=== PATIENT | male | born 1950 | race Caucasian/White ===

== ENCOUNTER → 2016-04-30 | Outpatient (CLI) | payer BC ==
--- NOTE | 2016-05-01 06:49 | XR ---
EXAMINATION TYPE: XR KUB DATE OF EXAM: 04/30/2016 4:12 PM CLINICAL HISTORY: Right-sided kidney stone progress study. TECHNIQUE: 2 supine KUB images of the abdomen are obtained. COMPARISON: Abdominal x-ray and CT abdomen and pelvis from April 09, 2016 FINDINGS: The roughly 5 mm mid ureter calculus is less well seen on plain films versus CT images. It is felt to have passed into the pelvis or bladder on today's study at level of the lower sacrum in th e midline. There is left-sided pelvic phlebolith demonstrated. Smaller renal calculi on CT are less w ell seen on plain films. Prominent fecal material overlies right kidney. Visualized lung bases are clear. There is overall nonobstructive bowel gas pattern. Visualized osseou s structures are intact. IMPRESSION: Suboptimal visualization of right mid ureter 5 mm calculus. Suspect interval passage to b ladder.
== END | disposition home or self-care (01) ==
LOC: RADXRMAIN 15:40
PROVIDERS: ATTEND Urology
DX: N20.1 Calculus of ureter (principal)
CPT/HCPCS: 74000

== ENCOUNTER 2017-11-13 10:17 | Emergency (ER) | payer BC, MEDICARE ==
[2017-11-13 10:49] LABS: Glucose,Whole Blood 150 mg/dL (75-99)
[2017-11-13] MEDS ORDERED: KETOROLAC 30 MG/ML 1 ML VIAL IVP STA (11:06)
[2017-11-13] MEDS ORDERED: ONDANSETRON 4 MG/2 ML VIAL IVP STA (11:06)
[2017-11-13] MEDS ORDERED: SODIUM CHLORIDE 0.9% 1,000 ML IV STA (11:06)
[2017-11-13] MEDS ORDERED: MORPHINE SULFATE 2 MG/ML SYRINGE IVP STA (11:06)
--- NOTE | 2017-11-13 11:19 | ED ---
General Adult HPI - General Chief complaint: Abdominal Pain Stated complaint: abdominal pain sent by med-ex Time Seen by Provider: 11/13/17 10:50 Source: patient, RN notes reviewed Mode of arrival: ambulatory Limitations: no limitations - History of Present Illness Initial comments: 67-year-old male presents to the emergency department for a chief complaint of possible kidney stone 1 week. Patient states he has had 5 kidney stones in the past. Patient states the pain is in his left back radiating around to his left abdomen. Patient denies pain radiating down to his groin. Patient admits he is somewhat nauseous but denies any vomiting. Patient states he has been tolerating oral intake until about 12 hours ago since he has not been hungry. No fevers chills at home. Patient has no other complaints at this time including shortness of breath, chest pain, abdominal pain, nausea or vomiting, headache, or visual changes. - Related Data Home Medications Medication Instructions Recorded Confirmed metFORMIN HCL [Metformin HCl ER] 500 mg PO BID 05/12/14 11/13/17 Cholecalciferol [Vitamin D3] 2,000 unit PO DAILY 04/09/16 11/13/17 Cinnamon Bark [Cinnamon] 500 mg PO BID 04/09/16 11/13/17 Fenofibrate Nanocrystallized 48 mg PO DAILY 04/09/16 11/13/17 [Fenofibrate] Garlic 1 tab PO BID 04/09/16 11/13/17 Glucosam/Micah-Msm1/C/Job/Bosw 1 tab PO BID 04/09/16 11/13/17 [Glucosamine-Chondroitin Tablet] Inulin/Chromium Picolinate [Fiber 1 tab PO BID 04/09/16 11/13/17 Gummies Chew] Levothyroxine Sodium [Synthroid] 75 mcg PO DAILY 04/09/16 11/13/17 Multivitamins, Thera [Multivitamin] 1 tab PO DAILY 04/09/16 11/13/17 Niacin 500 mg PO BID 04/09/16 11/13/17 Cranberry Fruit Extract [Cranberry] 200 mg PO DAILY 11/13/17 11/13/17 Cyanocobalamin (Vitamin B-12) 1,000 mcg PO DAILY 11/13/17 11/13/17 [Vitamin B-12] Latanoprost Ophth [Xalatan 0.005%] 1 drop BOTH EYES HS 11/13/17 11/13/17 Netarsudil Mesylate [Rhopressa] 1 drop BOTH EYES QAM 11/13/17 11/13/17 Previous Rx's Medication Instructions Recorded HYDROcodone/APAP 5-325MG [[place] 1 tab PO Q6HR PRN #10 tab 11/13/17 5-325] Ibuprofen [Motrin] 600 mg PO Q8HR PRN #20 tab 11/13/17 Ondansetron [Zofran ODT] 4 mg PO Q8HR #15 tab 11/13/17 Tamsulosin [Flomax] 0.4 mg PO DAILY #20 cap 11/13/17 Allergies Allergy/AdvReac Type Severity Reaction Status Date / Time tetracycline Allergy Swelling Verified 11/13/17 11:18 Review of Systems ROS Statement: Those systems with pertinent positive or pertinent negative responses have been documented in the HPI. ROS Other: All systems not noted in ROS Statement are negative. Past Medical History Past Medical History: Diabetes Mellitus, GERD/Reflux Additional Past Medical History / Comment(s): kidney stones History of Any Multi-Drug Resistant Organisms: None Reported Additional Past Surgical History / Comment(s): PILONIDAL CYSTECTOMY. GANGLION CYST REMOEVED LT WRIST Past Anesthesia/Blood Transfusion Reactions: Motion Sickness, Postoperative Nausea & Vomiting (PONV) Past Psychological History: No Psychological Hx Reported Smoking Status: Never smoker Past Alcohol Use History: None Reported, Rare Past Drug Use History: None Reported - Past Family History Father Family Medical History: Cancer Mother Family Medical History: Cancer General Exam Limitations: no limitations General appearance: alert, in no apparent distress Head exam: Present: atraumatic, normocephalic, normal inspection Eye exam: Present: normal appearance. Absent: scleral icterus, conjunctival injection ENT exam: Present: normal exam, mucous membranes moist Neck exam: Present: normal inspection, full ROM. Absent: tenderness, meningismus, lymphadenopathy Respiratory exam: Present: normal lung sounds bilaterally. Absent: respiratory distress, wheezes, rales, rhonchi, stridor Cardiovascular Exam: Present: regular rate, normal rhythm, normal heart sounds. Absent: systolic murmur, diastolic murmur, rubs, gallop, clicks GI/Abdominal exam: Present: soft, tenderness (mild LUQ and LLQ tenderness), normal bowel sounds. Absent: distended, guarding, rebound, rigid Back exam: Present: CVA tenderness (L) (mild CVA tenderness) Course Vital Signs 11/13/17 11/13/17 10:40 12:22 Temperature 98.3 F Pulse Rate 54 L 53 L Respiratory 16 18 Rate Blood Pressure 162/77 171/75 O2 Sat by Pulse 100 100 Oximetry Medical Decision Making - Medical Decision Making 67-year-old male to the emergency department for a chief complaint of left flank pain times one week. Patient has history of kidney stones and has had 5 in the past. On exam patient has left CVA tenderness with minimal left upper and lower quadrant tenderness. Bilateral nephrolithiasis with moderate left hydronephrosis and hydroureter to the level of upper pelvis secondary to obstructing 4.7 mm ureteral calculus. Patient could not urinatein Urinalysis from [employer] showed trace leukocytes , neg nitrite, moderate to large blood. No fevers/chills. Patient feeling much better at DC. Patient will be discharged home with pain medication Flomax and Zofran. He is to follow-up with urology in 1-2 days. - Lab Data Result diagrams: 11/13/17 11:34 11/13/17 11:34 Lab Results 11/13/17 11/13/17 11/13/17 Range/Units 10:47 11:34 11:34 WBC 11.4 H (3.8-10.6) k/uL RBC 4.80 (4.30-5.90) m/uL Hgb 14.1 (13.0-17.5) gm/dL Hct 42.8 (39.0-53.0) % MCV 89.1 (80.0-100.0) fL MCH 29.4 (25.0-35.0) pg MCHC 33.0 (31.0-37.0) g/dL RDW 13.3 (11.5-15.5) % Plt Count 195 (150-450) k/uL Neutrophils % 85 % Lymphocytes % 7 % Monocytes % 5 % Eosinophils % 1 % Basophils % 0 % Neutrophils # 9.7 H (1.3-7.7) k/uL Lymphocytes # 0.8 L (1.0-4.8) k/uL Monocytes # 0.6 (0-1.0) k/uL Eosinophils # 0.1 (0-0.7) k/uL Basophils # 0.0 (0-0.2) k/uL Sodium 141 (137-145) mmol/L Potassium 5.0 (3.5-5.1) mmol/L Chloride 106 (98-107) mmol/L Carbon Dioxide 23 (22-30) mmol/L Anion Gap 12 mmol/L BUN 27 H (9-20) mg/dL Creatinine 1.43 H (0.66-1.25) mg/dL Est GFR (CKD-EPI)AfAm 59 (>60 ml/min/1.73 sqM) Est GFR (CKD-EPI)NonAf 51 (>60 ml/min/1.73 sqM) Glucose 149 H (74-99) mg/dL POC Glucose (mg/dL) 150 H (75-99) mg/dL POC Glu Eeg Technician ID Elvis Monsivais Calcium 10.3 H (8.4-10.2) mg/dL Total Bilirubin 0.4 (0.2-1.3) mg/dL AST 20 (17-59) U/L ALT 29 (21-72) U/L Alkaline Phosphatase 38 (38-126) U/L Total Protein 7.4 (6.3-8.2) g/dL Albumin 4.7 (3.5-5.0) g/dL Amylase 36 (30-110) U/L Lipase 63 (23-300) U/L Disposition Clinical Impression: Ureterolithiasis Disposition: HOME SELF-CARE Condition: Good Instructions: Kidney Stones (ED), Renal Colic (ED) Additional Instructions: Please take Motrin for pain. If pain is severe take [place]. Please take Flomax daily and take Zofran if nauseous. Follow-up with urology in 1-2 days. Return to the emergency department if you have any worsening symptoms. Prescriptions: HYDROcodone/APAP 5-325MG [[place] 5-325] 1 tab PO Q6HR PRN #10 tab PRN Reason: Pain Ibuprofen [Motrin] 600 mg PO Q8HR PRN #20 tab PRN Reason: Pain Ondansetron [Zofran ODT] 4 mg PO Q8HR #15 tab Tamsulosin [Flomax] 0.4 mg PO DAILY #20 cap Is patient prescribed a controlled substance at d/c from ED?: No Referrals: Hunter Ng MD [Primary Care Provider] - 1-2 days Ladarius Camarena MD [STAFF PHYSICIAN] - 1-2 days Time of Disposition: 13:01
--- NOTE | 2017-11-13 11:46 | XR ---
EXAMINATION TYPE: XR KUB DATE OF EXAM: 11/13/2017 COMPARISON: 04/30/2016 INDICATION: Abdomen pain left flank pain hematuria TECHNIQUE: Single view abdomen upright view FINDINGS: There is a normal bowel gas pattern. Fecal debris is in the ascending colon. Psoas margins are normal. No organomegaly is present. No renal stones are identified. No distal ureteral stones are evident. IMPRESSION: 1. Unremarkable Abdomen
[2017-11-13 11:51] LABS: Basophils % (A) 0 %; Eosinophils # (A) 0.1 k/uL (0-0.7); Eosinophils % (A) 1 %; HCT 42.8 % (39.0-53.0); HGB 14.1 gm/dL (13.0-17.5); Lymphocytes # (A) 0.8 k/uL (1.0-4.8); Lymphocytes % (A) 7 %; MCH 29.4 pg (25.0-35.0); MCV 89.1 fL (80.0-100.0); Mean Platelet Volume 6.9; Monocytes # (A) 0.6 k/uL (0-1.0); Monocytes % (A) 5 %; Neutrophils # (A) 9.7 k/uL (1.3-7.7); Neutrophils % (A) 85 %; Platelet Count 195 k/uL (150-450); RDW 13.3 % (11.5-15.5); WBC 11.4 k/uL (3.8-10.6)
[2017-11-13 12:02] LABS: Albumin 4.7 g/dL (3.5-5.0); Calcium 10.3 mg/dL (8.4-10.2); Total Bilirubin 0.4 mg/dL (0.2-1.3); Total Protein 7.4 g/dL (6.3-8.2)
--- NOTE | 2017-11-13 12:42 | CT ---
EXAMINATION TYPE: CT abdomen pelvis wo con DATE OF EXAM: 11/13/2017 COMPARISON: 04/09/2016 HISTORY: Left flank pain. History of renal stones. Hematuria. CT DLP: 720 mGycm Automated exposure control for dose reduction was used. TECHNIQUE: Helical acquisition of images was performed from the lung bases through the pelvis. FINDINGS: LUNG BASES: No significant abnormality is appreciated. LIVER/GB: No significant abnormality is appreciated. PANCREAS: No significant abnormality is seen. SPLEEN: No significant abnormality is seen. ADRENALS: No significant abnormality is seen. KIDNEYS: There are least 5 punctate calcifications overlying the calyces of both kidneys. There is mo derate left hydronephrosis and hydroureter to the level of the upper pelvis. A nonobstructing 4.7 mm calcification is noted within the ureter. Indeterminant upper pole subcentimeter right renal lesion s table. ADENOPATHY: None visualized. OSSEOUS STRUCTURES: No significant abnormality is seen. Disc bulging L4-L5 noted. BOWEL: Bowel gas pattern nonspecific. No free fluid or free air. Diverticulosis of the colon. OTHER: Aorta of normal caliber with mild atherosclerotic changes. Prostate gland is mildly enlarged. There is variant anatomy of the celiac plexus with separate origins of the splenic artery and hepatic artery IMPRESSION: 1. Bilateral nephrolithiasis with moderate left hydronephrosis and hydroureter to level the upper pel vis secondary to obstructing 4.7 mm ureteral calculus.
[2017-11-13 13:12] VITALS: BP 169/79; PULSE 54; RESP 14; TEMP 98.4
[2017-11-13 13:42] LABS: Appearance,Urine Clear (Clear); Bilirubin,Urine Negative (Negative); Blood,Urine Large (Negative); Color,Urine Yellow; Glucose,Urine (UA) Negative (Negative); Ketones,Urine Negative (Negative); Leukocyte Esterase,Urine Negative (Negative); Mucus,Urine Rare /hpf; Nitrite,Urine Negative (Negative); PH, Urine 5.5 (5.0-8.0); Protein,Urine Trace (Negative); RBC,Urine 101 /hpf (0-5); Specific Gravity,Urine 1.017 (1.001-1.035); Urobilinogen,Urine <2.0 mg/dL (<2.0); WBC,Urine 3 /hpf (0-5)
== END 2017-11-13 13:30 | disposition home or self-care (01) ==
LOC: EC 10:17
DX: N13.2 Hydronephrosis with renal and ureteral calculous obstruction (principal); E11.9 Type 2 diabetes mellitus without complications; Z98.890 Other specified postprocedural states; Z79.84 Long term (current) use of oral hypoglycemic drugs; Z79.899 Other long term (current) drug therapy; Z88.1 Allergy status to other antibiotic agents
CPT/HCPCS: 99285; 96374; 96375 ×2; 96361; 36415; 80053; 82150; 83690; 85025; 81001; 87086; 74018; 74176; J2405; J1885; J2270

== ENCOUNTER → 2018-01-14 | Outpatient (CLI) | payer BC, MEDICARE ==
--- NOTE | 2018-01-14 13:16 | XR ---
EXAMINATION TYPE: XR KUB DATE OF EXAM: 01/14/2018 CLINICAL DATA: 67-year-old male left-sided kidney stone with persistent pain with urination, [facility] COMPARISON: CT 11/13/2017 FINDINGS: Supine imaging limited for assessment of free intraperitoneal air. No dilated bowel. Vqwv-[id number]-[id number] stool particularly in the right side of the abdomen. Rounded calcification in the left side of the pelvis suggestive of a phlebolith. No definite suspicio us calcification otherwise seen. IMPRESSION: Nonobstructive bowel gas pattern. Tiny phlebolith in the left side of the pelvis. No definite suspici ous calcification otherwise seen.
== END | disposition home or self-care (01) ==
LOC: RADXRMAIN 12:40
PROVIDERS: ATTEND Urology
DX: N20.1 Calculus of ureter (principal)
CPT/HCPCS: 74018

== ENCOUNTER 2019-03-03 07:40 | Day surgery (SDC) | payer BC, MEDICARE ==
[2019-03-01 13:25] VITALS: BMI 22.8
[~2019-03-03 07:40] MED LIST: LIDOCAINE 1% 20 ML VIAL (10MG/ML) FOR IV START INTRADERMA PRN
[2019-03-03 08:20] VITALS: TEMP 97.5
[2019-03-03] MEDS: LACTATED RINGERS 1,000 ML IV SCH ×2 (08:33→08:34)
[2019-03-03 08:34] LABS: Glucose,Whole Blood 117 mg/dL (75-99)
[2019-03-03] MEDS ORDERED: PROPOFOL 10 MG/ML 20 ML VIAL IV ONE (08:34)
[2019-03-03] MEDS ORDERED: LIDOCAINE 1% INJ 10MG/ML (20 ML MDV) ONE (08:34)
--- NOTE | 2019-03-03 08:51 | P.PCN ---
Date of Procedure: 03/03/19 Procedure(s) Performed: BRIEF HISTORY: Patient is a 68-year-old pleasant male scheduled for an elective colonoscopy as a part of evaluation of Hemoccult-positive stool. PROCEDURE PERFORMED: Colonoscopy. PREOPERATIVE DIAGNOSIS: Hemoccult-positive stool. IV sedation per Anesthesia. PROCEDURE: After informed consent was obtained, the patient, was brought into the endoscopy unit. IV sedation was administered by Anesthesia under continuous monitoring. Digital rectal examination was normal. Initially the Olympus CF-160 flexible video colonoscope was then inserted in the rectum, gradually advanced into the cecum without any difficulty. Careful examination was performed as the scope was gradually being withdrawn. Ileocecal valve and the appendiceal orifice were visualized and appeared normal. Prep was excellent. Mucosa of the cecum, ascending colon, transverse colon, descending colon, sigmoid colon, and rectum appeared normal. Scattered sigmoidal diverticula cyst seen. Retroflexion was performed in the rectum and no lesions were seen. The patient tolerated the procedure well. IMPRESSION: Normal-appearing colon from rectum to cecum with no evidence of colorectal neoplasia. Scattered sigmoidal diverticulosis RECOMMENDATIONS: Findings of this examination were discussed with the patient as well as his family. He was advised to have a repeat screening colonoscopy in 10 years.
[2019-03-03 08:54] VITALS: RESP 16
[2019-03-03 09:06] VITALS: BP 135/67; PULSE 56
== END 2019-03-03 09:21 | disposition home or self-care (01) ==
LOC: ORWHC2ENDO 07:40
PROVIDERS: ATTEND Internal Medicine Gastroenterology
DX: K57.30 Diverticulosis of large intestine without perforation or abscess without bleeding (principal); E11.9 Type 2 diabetes mellitus without complications; Z88.1 Allergy status to other antibiotic agents; Z79.890 Hormone replacement therapy; Z79.84 Long term (current) use of oral hypoglycemic drugs; Z79.899 Other long term (current) drug therapy; Z98.890 Other specified postprocedural states
CPT/HCPCS: 45378; J2001; J2704

== ENCOUNTER 2019-08-06 08:21 | Inpatient (IN) | payer BC ==
[~2019-08-06 08:21] MED LIST changes: +ALPRAZolam 0.25 MG TAB PO PRN; +ALPRAZolam 0.5 MG TAB PO PRN; +ASPIRIN 325 MG TAB PO STA; +ATORVASTATIN 80 MG TAB PO STA; -LIDOCAINE 1% 20 ML VIAL (10MG/ML) FOR IV START INTRADERMA PRN; +NITROGLYCERIN SL TABS 0.4 MG TAB SUBLINGUAL PRN; +SODIUM CHLORIDE 0.9% 1,000 ML in EMPTY BAG 1 BAG IV ONE
[2019-08-06] MEDS ORDERED: SODIUM CHLORIDE 0.9% 1,000 ML IV ONE (08:50)
[2019-08-06 09:12] LABS: Basophils % (A) 1 %; Eosinophils # (A) 0.3 k/uL (0-0.7); Eosinophils % (A) 5 %; HCT 43.8 % (39.0-53.0); HGB 14.6 gm/dL (13.0-17.5); Lymphocytes # (A) 1.3 k/uL (1.0-4.8); Lymphocytes % (A) 23 %; MCH 29.6 pg (25.0-35.0); MCHC 33.3 g/dL (31.0-37.0); MCV 88.9 fL (80.0-100.0); Mean Platelet Volume 8.4; Monocytes # (A) 0.5 k/uL (0-1.0); Monocytes % (A) 8 %; Neutrophils # (A) 3.5 k/uL (1.3-7.7); Neutrophils % (A) 61 %; Platelet Count 221 k/uL (150-450); RBC 4.93 m/uL (4.30-5.90); RDW 12.9 % (11.5-15.5); WBC 5.7 k/uL (3.8-10.6)
[2019-08-06 09:14] LABS: Glucose,Whole Blood 156 mg/dL (75-99)
[2019-08-06] MEDS ORDERED: fentaNYL (PF) 50 MCG/ML 2 ML AMP ONE (10:28)
[2019-08-06] MEDS ORDERED: HEPARIN SODIUM 1,000 UN/ML (10ML VL) ONE (10:28)
[2019-08-06] MEDS ORDERED: fentaNYL (PF) 50 MCG/ML 2 ML AMP IV ONE (10:57)
[2019-08-06] MEDS ORDERED: LIDOCAINE 1% INJ 10MG/ML (20 ML MDV) SQ ONE (10:59)
[2019-08-06] MEDS ORDERED: VERAPAMIL SYRINGE (5 MG/10 ML) INTRAARTER ONE (11:01)
[2019-08-06] MEDS ORDERED: IOPAMIDOL-370 125ML BTL INJ ONE (11:12)
[2019-08-06] MEDS ORDERED: RX INFO: IV CONTRAST WAS GIVEN 1 EACH MISC MISCELLANE PRN (11:33)
[2019-08-06] MEDS ORDERED: SODIUM CHLORIDE 0.9% 1,000 ML IV SCH (11:45)
[2019-08-06] MEDS ORDERED: HEPARIN SODIUM,PORCINE 5,000 UNIT/ML 1 ML VIAL IV PRN (12:04)
[2019-08-06] MEDS ORDERED: MD COMMUNICATION TO PHARMACY 1 EACH MISC PO ONE ×5 (12:05)
--- NOTE | 2019-08-06 14:10 | P.GSCN ---
History of Present Illness Consult date: 08/06/19 Reason for Consult: Symptomatic multivessel coronary artery disease. Requesting physician: Deja Kellogg History of present illness: This is a 69-year-old gentleman who is followed by Dr. Hunter Ng on an outpatient basis. He is a past medical history significant for ytv-ouqeemh-qyatuelvl diabetes mellitus type 2, dyslipidemia, hypothyroid, glaucoma, varicose veins to his bilateral lower extremities and family history of coronary artery disease less than 60 years of age. Recently, the patient has had complaints of shortness of breath on exertion. He denies any complaints of chest discomfort, palpitations, fever, diarrhea, orthopnea, or edema. Subsequently he was seen by Dr. Kellogg from cardiology associates and he underwent a nuclear Cardiolite stress test on 07/15/2019 which demonstrated an abnormal myocardial perfusion imaging with reversible mid anterior wall defect and inferior wall defect consistent with stress-induced ischemia possibly in the diagonal branch and the RCA territory. It also showed the left ventricular systolic function to be mildly impaired. During the stress test he did have good exercise tolerance with positive electrocardiographic stress testing with chest discomfort during exercise consistent with stress-induced ischemia. He also underwent a 2-D echocardiogram which demonstrated a normal left ventricular size with normal function, normal diastolic function with an ejection fraction of 55%, mild tricuspid valve regurgitation and mild mitral valve regurgitation. Due to the abnormal stress test and his above-mentioned symptoms he underwent elective cardiac catheterization today which demonstrated a 30% stenosis to his left main coronary artery, a 99% stenosis to his proximal circumflex coronary artery, and an 80% stenosis to his proximal left anterior descending coronary artery. Due to the findings on the heart catheterization a consult was placed to Dr. Drake Gibbs from cardiothoracic surgery for further evaluation and surgical recommendations. Review of Systems A 14 point review of systems was completed was negative except as mentioned in the HPI. Past Medical History Past Medical History: Diabetes Mellitus, GERD/Reflux, Hyperlipidemia, Thyroid Disorder Additional Past Medical History / Comment(s): kidney stones, glaucoma, tinnitus., varicose veins., hx of positive cologard (states negative colonoscopy),. dupuytrens contractures laila hands., States having SOB with exertion., see cardiology [facility]. History of Any Multi-Drug Resistant Organisms: None Reported Additional Past Surgical History / Comment(s): cataract, PILONIDAL CYST. GANGLION CYST LT WRIST Past Anesthesia/Blood Transfusion Reactions: Previous Problems w/ Anesthesia Additional Past Anesthesia/Blood Transfusion Reaction / Comm: had spinal headache after spinal anesthesia Past Psychological History: No Psychological Hx Reported Smoking Status: Never smoker Past Alcohol Use History: Rare Past Drug Use History: None Reported - Past Family History Father Family Medical History: Cancer (Pancreatic) Mother Family Medical History: Cancer (Breast) Medications and Allergies Home Medications Medication Instructions Recorded Confirmed Type metFORMIN HCL [Metformin HCl ER] 500 mg PO BID 05/12/14 08/06/19 History Cinnamon Bark [Cinnamon] 1,000 mg PO BID 04/09/16 08/06/19 History Fenofibrate Nanocrystallized 48 mg PO DAILY 04/09/16 08/06/19 History [Fenofibrate] Garlic 1 tab PO BID 04/09/16 08/06/19 History Levothyroxine Sodium [Synthroid] 75 mcg PO DAILY 04/09/16 08/06/19 History Cranberry Fruit Extract [Cranberry] 500 mg PO DAILY 11/13/17 08/06/19 History Cyanocobalamin (Vitamin B-12) 1,000 mcg PO DAILY 11/13/17 08/06/19 History [Vitamin B-12] Latanoprost Ophth [Xalatan 0.005%] 1 drop BOTH EYES HS 11/13/17 08/06/19 History Netarsudil Mesylate [Rhopressa] 1 drop BOTH EYES QAM 11/13/17 08/06/19 History Cholecalciferol (Vitamin D3) 125 mcg PO DAILY 08/04/19 08/06/19 History [Vitamin D3] Docusate Sodium [Dok] 100 mg PO BID 08/04/19 08/06/19 History Metoprolol Tartrate [Lopressor] 25 mg PO BID 08/04/19 08/06/19 History Multivit-Min/Folic/Vit K/Lycop 1 each PO DAILY 08/04/19 08/06/19 History [Men's Multivitamin Tablet] Aspirin 81 mg PO DAILY chew 08/06/19 Rx Atorvastatin [Lipitor] 40 mg PO DAILY #90 tab 08/06/19 Rx Nitroglycerin Sl Tabs [Nitrostat] 0.4 mg SUBLINGUAL Q5M PRN #25 tab 08/06/19 Rx Allergies Allergy/AdvReac Type Severity Reaction Status Date / Time tetracycline Allergy Swelling Verified 08/06/19 08:51 Surgical - Exam Vital Signs Temp Pulse Resp BP Pulse Ox 97.9 F 52 L 18 142/66 98 08/06/19 09:13 08/06/19 09:13 08/06/19 09:13 08/06/19 09:13 08/06/19 09:13 - General well developed, well nourished, no distress, no pain - Eyes PERRL, normal ocular movement - ENT normal pinna, normal nares, normal mucosa, no hearing loss, no congestion - Neck Neck is supple. No JVD. no masses, no bruits, no venous distension - Respiratory Lungs sounds are essentially clear throughout. Respirations are symmetrical and nonlabored. No wheezes, rhonchi or crackles. - Cardiovascular Regular rhythm and rate. S1 and S2 present, negative for S3, gallop or murmur. - Abdomen Abdomen is soft, nontender and nondistended. Active bowel sounds present in all 4 abdominal quadrants. No guarding or rigidity. No organomegaly. - Genitourinary Deferred - Rectum Deferred - Integumentary no rash, no growths, no abnormal pigmentation - Neurologic normal coordination, normal sensation - Musculoskeletal normal gait, normal posture - Psychiatric oriented to time, oriented to person, oriented to place, speech is normal, memory intact Results - Labs 08/06/19 08:50 Abnormal Lab Results - Last 24 Hours (Table) 08/06/19 Range/Units 08:58 POC Glucose (mg/dL) 156 H (75-99) mg/dL - Imaging Additional studies: Cardiolite stress test report and 2-D echocardiogram report reviewed by Dr. Drake Gibbs. Assessment and Plan Assessment: 1. Symptomatic multivessel coronary artery disease. 2. History of dyslipidemia. 3. Mra-nwtcncl-wxceitrtw diabetes mellitus. 4. History of Hypothyroid. 5. History of glaucoma 6. Family history of coronary artery disease less than 60 years of age. Plan: The patient was seen and examined at his bedside in the extended stay unit. His chart and diagnostics were reviewed by Dr. Drake Gibbs. The findings on his heart catheterization were discussed with the patient and his by Dr. Kellogg and by Dr. Gibbs. Recommendations for urgent coronary artery bypass grafting were discussed with the patient and his . Knowing the potential risks and benefits the patient wishes to proceed with urgent coronary artery bypass grafting surgery which will be scheduled for 08/08/[address] Drake Gibbs. Preoperative testing has been initiated including a COVID 19 test and preoperative instructions have been discussed with the patient and his . Continue to optimize his medical management preoperatively with beta jyoti, aspirin and statin. Medical management per primary care service and cardiology. Once his preoperative testing has all been collected and reviewed an STS risk score will be calculated and discussed with the patient. We will obtain a 5 m walk test tomorrow 08/07/2019. Thank you Dr. Kellogg for this consult and we will look for to working with you in the care of this patient. Time with Patient: Less than 30
[2019-08-06 14:17] LABS: Appearance,Urine Clear (Clear); Bilirubin,Urine Negative (Negative); Blood,Urine Negative (Negative); Color,Urine Light Yellow; Glucose,Urine (UA) Negative (Negative); Ketones,Urine Negative (Negative); Leukocyte Esterase,Urine Negative (Negative); Nitrite,Urine Negative (Negative); Protein,Urine Negative (Negative); Specific Gravity,Urine 1.025 (1.001-1.035); Urobilinogen,Urine <2.0 mg/dL (<2.0)
[2019-08-06] MEDS: HEPARIN SOD,PORK IN 0.45% NACL 25,000 UNIT in 0.45% NACL 1 250ML.BAG IV SCH (14:36)
--- NOTE | 2019-08-06 14:54 | CC ---
CARDIAC CATHETERIZATION REPORT Mr. Covington is a 69-year-old male with known history of diabetes, hyperlipidemia, family history of premature coronary artery disease who has been complaining of progressive symptoms of dyspnea on exertion, underwent a myocardial perfusion imaging that revealed EKG changes as well as chest discomfort on the treadmill with reversible anterior and inferior wall defect. In view of that, recommendation made regarding cardiac catheterization. The procedures, risks, and complication were discussed with the patient who is in full understanding and agreement. PROCEDURE: Patient was brought to mini lab operator in a fasting semi-sedated state after receiving fentanyl and Benadryl and achieving moderate conscious sedated state. Using Xylocaine anesthesia and Seldinger technique, a 6-Turkmen sheath was introduced in the right radial artery. Selective right and left coronary angiography performed using 5- Turkmen 3.5 bend right and left Kenyatta catheter, multiple views of the coronary artery including hemiaxial views obtained. The right Kenyatta was used to cross the aortic valve and a left ventricular end-diastolic pressure was calculated. Following that, catheter and sheath were removed. Hemostasis was obtained with deployment of a TR band. There was no immediate complication. Patient is returned to his room in stable condition. Of note, the patient received 4000 units of intravenous heparin as well as intra-arterial verapamil. FINDINGS: LEFT MAIN: This is a large-sized vessel, bifurcating into left circumflex, left anterior descending artery. Left main coronary artery has a 30% to 40% plaque distally. LEFT ANTERIOR DESCENDING ARTERY: This is a large-sized vessel, reaching toward the apex with a wraparound apex segment. The left anterior descending artery at the ostium has a 70% plaque. The rest of the vessel has no high-grade stenosis. LEFT CIRCUMFLEX: This is a nondominant, large size vessel, giving rise to a large obtuse marginal branch. The ostium of the left circumflex has a 99% stenosis. The rest of the vessel has no high-grade stenosis. RIGHT CORONARY ARTERY: This is a moderately-sized, dominant vessel giving rise to a PDA distally. The right coronary artery as well as branches have no evidence of obstructive coronary artery disease. LEFT VENTRICULOGRAM: Left ventriculogram was not performed. HEMODYNAMICS: There was no gradient across the aortic valve. The left ventricular end- diastolic pressure was 16-18 mmHg. CONCLUSION: 1. Moderate disease in the distal left main with critical stenosis involving the ostium of the LAD and the LCX. 2. Right dominance. RECOMMENDATION: In view of finding anatomy and the history of diabetes mellitus, I recommend proceeding with evaluation for coronary artery bypass grafting. The rationale behind that was discussed with the patient and his family and they are in full understanding and agreement. The patient will be seen today by Dr. Gibbs for further evaluation. Duration of the procedure is 15 minutes. MMBREA / FARRUKHN: [id number] / MTDD
--- NOTE | 2019-08-06 14:57 | LTR ---
DATE OF SERVICE: 08/06/2019 RE: Jigar Covington Dear Dr. Ng: I had the pleasure to perform cardiac catheterization on Mr. Covington at [facility] on August 06, 2019 and a full copy of the procedure note will be forwarded to you. In brief, he was found to have critical stenosis involving the ostium of the LAD and to the left circumflex. In view of that and because of the history of diabetes mellitus, I recommend proceeding with evaluation for coronary artery bypass grafting. I will keep you updated on his progress and thank you again for allowing me to participate in this patient's care. Please feel free to call for any questions. Sincerely yours, MD MERNA Espitia / ANDREW: [id number] /
--- NOTE | 2019-08-06 15:32 | P.CNPUL ---
History of Present Illness Consult date: 08/06/19 Requesting physician: Drake Gibbs Reason for consult: dyspnea Chief complaint: Dyspnea on exertion History of present illness: This is a very pleasant 69-year-old gentleman who follows with Dr. Ng as his primary care provider. He has a history of hyperlipidemia, diabetes mellitus, hypothyroidism. He had recently been having issues with dyspnea on exertion. He is a lifelong nonsmoker. Stress test revealed evidence of ischemia and he was brought in today electively for a cardiac catheterization with Dr. Kellogg. He was found to have moderate disease in the distal left main with critical stenosis involving the ostium of the LAD in the right coronary artery. He was recommended coronary artery bypass grafting surgery which will be performed on 08/09/2019. We're consulted for critical care/mechanical ventilator management. He is seen today in consultation. He is awake and alert in no acute distress. Denies any worsening shortness of breath, cough or congestion. No chest pain currently. He is maintaining O2 saturations in the 90s on room air. He's bradycardic. Slightly hypertensive. White count 5.7. Hemoglobin 14.6. Platelets 221. Glucose 156. Urinalysis clear. He's been initiated on a heparin drip. 0.9 normal saline @ 100 ML's per hour. Review of Systems REVIEW OF SYSTEMS: CONSTITUTIONAL: Denies any recent significant weight loss or weight gain. EYES: Denies change in vision. EARS, NOSE, MOUTH, THROAT: Denies headaches, denies sore throat. CARDIOVASCULAR: Denies chest pain, palpitations or syncopal episodes. RESPIRATORY: Positive for shortness of breath on exertion, no cough, congestion or hemoptysis. GASTROINTESTINAL: Denies change in appetite, denies abdominal pain GENITOURINARY: Denies hematuria, denies infections. MUSKULOSKELETAL: Denies pain, denies swelling. INTEGUMENTARY: Denies rash, denies eczema. NEUROLOGICAL: Denies recent memory loss, no recent seizure activity. PSYCHIATRIC: Denies anxiety, denies depression. HEMATOLOGIC/LYMPHATIC: Denies anemia, denies enlarged lymph nodes. Past Medical History Past Medical History: Diabetes Mellitus, GERD/Reflux, Hyperlipidemia, Thyroid Disorder Additional Past Medical History / Comment(s): kidney stones, glaucoma, tinnitus., varicose veins., hx of positive cologard (states negative colonoscopy),. dupuytrens contractures laila hands., States having SOB with exertion., see cardiology [facility] & P. History of Any Multi-Drug Resistant Organisms: None Reported Additional Past Surgical History / Comment(s): cataract, PILONIDAL CYST. GANGLION CYST LT WRIST Past Anesthesia/Blood Transfusion Reactions: Previous Problems w/ Anesthesia Additional Past Anesthesia/Blood Transfusion Reaction / Comment(s): had spinal headache after spinal anesthesia Past Psychological History: No Psychological Hx Reported Smoking Status: Never smoker Past Alcohol Use History: Rare Past Drug Use History: None Reported - Past Family History Father Family Medical History: Cancer (Pancreatic) Mother Family Medical History: Cancer (Breast) Medications and Allergies Home Medications Medication Instructions Recorded Confirmed Type metFORMIN HCL [Metformin HCl ER] 500 mg PO BID 05/12/14 08/06/19 History Cinnamon Bark [Cinnamon] 1,000 mg PO BID 04/09/16 08/06/19 History Fenofibrate Nanocrystallized 48 mg PO DAILY 04/09/16 08/06/19 History [Fenofibrate] Garlic 1 tab PO BID 04/09/16 08/06/19 History Levothyroxine Sodium [Synthroid] 75 mcg PO DAILY 04/09/16 08/06/19 History Cranberry Fruit Extract [Cranberry] 500 mg PO DAILY 11/13/17 08/06/19 History Cyanocobalamin (Vitamin B-12) 1,000 mcg PO DAILY 11/13/17 08/06/19 History [Vitamin B-12] Latanoprost Ophth [Xalatan 0.005%] 1 drop BOTH EYES HS 11/13/17 08/06/19 History Netarsudil Mesylate [Rhopressa] 1 drop BOTH EYES QAM 11/13/17 08/06/19 History Cholecalciferol (Vitamin D3) 125 mcg PO DAILY 08/04/19 08/06/19 History [Vitamin D3] Docusate Sodium [Dok] 100 mg PO BID 08/04/19 08/06/19 History Metoprolol Tartrate [Lopressor] 25 mg PO BID 08/04/19 08/06/19 History Multivit-Min/Folic/Vit K/Lycop 1 each PO DAILY 08/04/19 08/06/19 History [Men's Multivitamin Tablet] Aspirin 81 mg PO DAILY chew 08/06/19 Rx Atorvastatin [Lipitor] 40 mg PO DAILY #90 tab 08/06/19 Rx Nitroglycerin Sl Tabs [Nitrostat] 0.4 mg SUBLINGUAL Q5M PRN #25 tab 08/06/19 Rx Allergies Allergy/AdvReac Type Severity Reaction Status Date / Time tetracycline Allergy Swelling Verified 08/06/19 08:51 Physical Exam Vitals: Vital Signs Temp Pulse Pulse Resp BP BP Pulse Ox 08/06/19 13:46 57 L 147/74 93 L 08/06/19 12:30 58 L 14 159/88 98 08/06/19 12:15 54 L 14 165/84 95 08/06/19 12:00 58 L 14 169/89 97 08/06/19 11:45 58 L 14 169/89 98 08/06/19 11:30 64 14 190/93 99 08/06/19 10:48 14 99 08/06/19 09:13 97.9 F 52 L 18 142/66 150/74 98 Intake and Output 08/06/19 08/06/19 08/06/19 06:59 14:59 22:59 Intake Total 400 Balance 400 Intake: IV 400 Other: Weight 76.8 kg GENERAL EXAM: Alert, pleasant 69-year-old gentleman, on room air, comfortable in no apparent distress. HEAD: Normocephalic. EYES: Normal reaction of pupils, equal size. NOSE: Clear with pink turbinates. THROAT: No erythema or exudates. NECK: No masses, no JVD. CHEST: No chest wall deformity. LUNGS: Equal air entry with no crackles, wheeze, rhonchi or dullness. CVS: S1 and S2 normal with no audible murmur, regular rhythm. ABDOMEN: No hepatosplenomegaly, normal bowel sounds, no guarding or rigidity. SPINE: No scoliosis or deformity SKIN: No rashes CENTRAL NERVOUS SYSTEM: No focal deficits, tone is normal in all 4 extremities. EXTREMITIES: There is no peripheral edema. No clubbing, no cyanosis. Peripheral pulses are intact. Results - Laboratory Findings CBC and BMP: 08/06/19 08:50 Abnormal lab findings: Abnormal Labs 08/06/19 08:58 POC Glucose (mg/dL) 156 H Assessment and Plan Assessment: 1 Dyspnea on exertion in a patient found to have coronary artery disease with moderate disease in the distal left main with critical stenosis involving the ostium of the LAD and RCA. Coronary artery bypass grafting surgery recommended and is planned for 08/09/2019. 2 Lifelong nonsmoker 3 Hyperlipidemia 4 Diabetes mellitus, type II 5 Hypothyroidism 6 Family history of premature coronary artery disease 7 History of bilateral nephrolithiasis Plan: The patient was seen and evaluated by Dr. Hough Chest x-ray pending Obtain an FEV1 value Educated regarding the incentive spirometer CoVID 19 screening pending We'll plan for early extubation protocol We'll continue to follow and make further recommendations based on his clinical status I, the cosigning physician, performed a history & physical examination of the patient. Lungs sounds are clear. Maintaining good O2 saturations in the 90s on room air. I discussed the assessment and plan of care with my nurse practitioner, Lorin Cordero. I attest to the above consultation as dictated by her. Time with Patient: Greater than 30
--- NOTE | 2019-08-06 15:43 | XR ---
EXAMINATION TYPE: XR chest 2V DATE OF EXAM: 08/06/2019 COMPARISON: NONE HISTORY: Shortness of breath TECHNIQUE: Frontal and lateral views of the chest are obtained. FINDINGS: Scattered senescent parenchymal changes noted. No evidence for infiltrate. No evidence for atelectasis. Heart size is stable. Mediastinal structures are stable and grossly unremarkable. No evidence for hilar prominence. Degenerative changes dorsal spine. IMPRESSION: 1. No evidence for acute pulmonary disease.
[2019-08-06 16:51] LABS: Glucose,Whole Blood 220 mg/dL (75-99)
--- NOTE | 2019-08-06 17:25 | US ---
EXAMINATION TYPE: US carotid duplex BILAT DATE OF EXAM: 08/06/2019 COMPARISON: NONE CLINICAL HISTORY: Pre-Op Cardiac Surgery. Pre op cardiac surgery EXAM MEASUREMENTS: RIGHT: Peak Systolic Velocity (PSV) cm/sec ----- Right CCA: 71.3 ----- Right ICA: 111.2 ----- Right ECA: 83.4 ICA/CCA ratio: 1.6 RIGHT: End Diastole cm/sec ----- Right CCA: 12.0 ----- Right ICA: 24.5 ----- Right ECA: 9.8 LEFT: Peak Systolic Velocity (PSV) cm/sec ----- Left CCA: 81.9 ----- Left ICA: 98.2 ----- Left ECA: 108.6 ICA/CCA ratio: 1.2 LEFT: End Diastole cm/sec ----- Left CCA: 17.1 ----- Left ICA: 24.5 ----- Left ECA: 8.9 VERTEBRALS (direction of flow): Right Vertebral: Antegrade Left Vertebral: Antegrade Rhythm: Normal Mild plaque bilateral bifurcations. No evidence of increased velocities. No evidence of significant s tenosis IMPRESSION: 1. Bilateral intimal thickening through the carotid bifurcations. No significant flow-limiting stenos is by velocity measurements is evident Criteria for Assigning % of Stenosis / Diameter reduction (Estimation based on the indirect measurements of the internal carotid artery velocities (ICA PSV). 1. Normal (no stenosis)=ICA PSV < 125 cm/s: ratio < 2.0: ICA EDV<40 cm/s. 2. Less than 50% stenosis=ICA PSV < 125 cm/s: ratio < 2.0: ICA EDV<40 cm/s. 3. 50 to 69% stenosis=ICA PSV of 125 to 230 cm/s: ration 2.0 ? 4.0: ICA EDV 40-100 cm/s. 4. Greater than 70% stenosis to near occlusion= ICA PSV > 230 cm/s: ratio > 4.0: ICA EDV > 100 cm/s. 5. Near occlusion= ICA PSV velocities may be low or undetectable: variable ratio and ICA EDV. 6. Total occlusion=unable to detect flow.
[2019-08-06] MEDS: INSULIN ASPART (NovoLOG) 100 UNIT/ML VIAL SQ SCH ×2 (17:27→20:31)
[2019-08-06] MEDS: METOPROLOL TARTRATE 25 MG TAB PO SCH (17:28)
--- NOTE | 2019-08-06 18:28 | P.CONS ---
History of Present Illness - Reason for Consult Consult date: 08/06/19 Medical management Requesting physician: Drake Gibbs - Chief Complaint Shortness of breath - History of Present Illness 69-year-old male with PMH of diabetes, dyslipidemia, hypothyroidism presents to [facility] after undergoing elective coronary angiography which showed 30-40% occlusion of the left main, 70% plaque of the left descending, 99% stenosis of the left circumflex. Due to his history of diabetes mellitus and the finding anatomy, he was evaluated by cardiothoracic surgery for CABG. Patient is agreeable. Patient was seen and examined. Patient currently reports no symptoms. He denies any headache, lower extremity edema, nausea or vomiting, fever or chills, cough, chest pain, shortness of breath, palpitations, changes in urination or bowel habits. No changes in appetite or weight. He denies any dizziness, numbness/weakness/tingling of the extremities. Review of Systems Pertinent positives and negatives as discussed in HPI, a complete review of systems was performed and all other systems are negative. Past Medical History Past Medical History: Diabetes Mellitus, GERD/Reflux, Hyperlipidemia, Thyroid Disorder Additional Past Medical History / Comment(s): kidney stones, glaucoma, tinnitus., varicose veins., hx of positive cologard (states negative colonoscopy),. dupuytrens contractures laila hands., States having SOB with exertion., see cardiology [facility] & P. History of Any Multi-Drug Resistant Organisms: None Reported Additional Past Surgical History / Comment(s): cataract, PILONIDAL CYST. GANGLION CYST LT WRIST Past Anesthesia/Blood Transfusion Reactions: Previous Problems w/ Anesthesia Additional Past Anesthesia/Blood Transfusion Reaction / Comm: had spinal headache after spinal anesthesia Past Psychological History: No Psychological Hx Reported Smoking Status: Never smoker Past Alcohol Use History: Rare Past Drug Use History: None Reported - Past Family History Father Family Medical History: Cancer (Pancreatic) Mother Family Medical History: Cancer (Breast) Medications and Allergies Home Medications Medication Instructions Recorded Confirmed Type metFORMIN HCL [Metformin HCl ER] 500 mg PO BID 05/12/14 08/06/19 History Cinnamon Bark [Cinnamon] 1,000 mg PO BID 04/09/16 08/06/19 History Fenofibrate Nanocrystallized 48 mg PO DAILY 04/09/16 08/06/19 History [Fenofibrate] Garlic 1 tab PO BID 04/09/16 08/06/19 History Levothyroxine Sodium [Synthroid] 75 mcg PO DAILY 04/09/16 08/06/19 History Cranberry Fruit Extract [Cranberry] 500 mg PO DAILY 11/13/17 08/06/19 History Cyanocobalamin (Vitamin B-12) 1,000 mcg PO DAILY 11/13/17 08/06/19 History [Vitamin B-12] Latanoprost Ophth [Xalatan 0.005%] 1 drop BOTH EYES HS 11/13/17 08/06/19 History Netarsudil Mesylate [Rhopressa] 1 drop BOTH EYES QAM 11/13/17 08/06/19 History Cholecalciferol (Vitamin D3) 125 mcg PO DAILY 08/04/19 08/06/19 History [Vitamin D3] Docusate Sodium [Dok] 100 mg PO BID 08/04/19 08/06/19 History Metoprolol Tartrate [Lopressor] 25 mg PO BID 08/04/19 08/06/19 History Multivit-Min/Folic/Vit K/Lycop 1 each PO DAILY 08/04/19 08/06/19 History [Men's Multivitamin Tablet] Aspirin 81 mg PO DAILY chew 08/06/19 Rx Atorvastatin [Lipitor] 40 mg PO DAILY #90 tab 08/06/19 Rx Nitroglycerin Sl Tabs [Nitrostat] 0.4 mg SUBLINGUAL Q5M PRN #25 tab 08/06/19 Rx Allergies Allergy/AdvReac Type Severity Reaction Status Date / Time tetracycline Allergy Swelling Verified 08/06/19 08:51 Physical Exam Vitals: Vital Signs Temp Pulse Pulse Resp BP BP Pulse Ox 08/06/19 16:00 97.7 F 56 L 16 176/77 95 08/06/19 13:46 57 L 147/74 93 L 08/06/19 12:30 58 L 14 159/88 98 08/06/19 12:15 54 L 14 165/84 95 08/06/19 12:00 58 L 14 169/89 97 08/06/19 11:45 58 L 14 169/89 98 08/06/19 11:30 64 14 190/93 99 08/06/19 10:48 14 99 08/06/19 09:13 97.9 F 52 L 18 142/66 150/74 98 Intake and Output 08/06/19 08/06/19 08/06/19 06:59 14:59 22:59 Intake Total 400 Balance 400 Intake: IV 400 Other: Weight 76.8 kg General: [non toxic], [no distress], [appears at stated age] Derm: [warm], [dry] Head: [atraumatic], [normocephalic], [symmetric] Eyes: [EOMI], [no lid lag], [anicteric sclera] Mouth: [no lip lesion], [mucus membranes moist] Cardiovascular: [S1S2 reg], [no murmur], [positive posterior tibial pulse bilateral], Lungs: [CTA bilateral], [no rhonchi, no rales] , [no accessory muscle use] Abdominal: [soft], [ nontender to palpation], [no guarding], [no appreciable organomegaly] Ext: [no gross muscle atrophy], [no edema], [no contractures] Neuro: [ CN II-XI grossly intact], [no focal neuro deficits] Psych: [Alert], [oriented], [appropriate affect] Results CBC & Chem 7: 08/06/19 08:50 Labs: Abnormal Lab Results - Last 24 Hours (Table) 08/06/19 08/06/19 Range/Units 08:58 16:50 POC Glucose (mg/dL) 156 H 220 H (75-99) mg/dL Assessment and Plan Assessment: Exertional shortness of breath with severe CAD Diabetes mellitus Hypothyroidism Coronary angiogram performed today. As per cardiology, patient is a candidate for CABG. Patient agreeable. Plans: CABG scheduled for 08/09/2019. Continue aspirin, Lipitor and metoprolol. Telemetry monitoring. Cardiology, pulmonology, cardiothoracic surgery on board. [id number] glucose 220. Plans: Insulin sliding scale. Regular Accu-Cheks. Hypoglycemic precautions. Plans: Resume Synthroid. DVT prophylaxis: [SCD] Discussed with: [Patient] Anticipated discharge: [7 days] Anticipated discharge place: [Home] A total of [45] minutes was spent on the care of this complex patient more than 50% of the time was spent in counseling and care coordination. Patient will be full code. Patient names his Ginny decision maker if he can make decisions for himself.
[2019-08-06 20:22] LABS: Glucose,Whole Blood 150 mg/dL (75-99)
[2019-08-06] MEDS: LATANOPROST 0.005% OPHTH DROPS 2.5 ML BTL BOTH EYES SCH (20:31)
[2019-08-06] MEDS: MUPIROCIN 2% OINT 22 GM TUBE NASAL SCH (20:31)
[2019-08-06] MEDS ORDERED: NON FORMULARY DRUG (Omega-3 Fatty Acids/Fish Oil [Fish Oil 1,000 Mg Softgel] 1 EACH) PO SCH (21:00)
[2019-08-06] MEDS: MELATONIN 1 MG TAB PO SCH (22:53)
[2019-08-07 06:31] LABS: Glucose,Whole Blood 128 mg/dL (75-99)
[2019-08-07] MEDS: INSULIN ASPART (NovoLOG) 100 UNIT/ML VIAL SQ SCH ×4 (06:32→21:18)
[2019-08-07 06:42] LABS: Basophils % (A) 1 %; Eosinophils # (A) 0.2 k/uL (0-0.7); Eosinophils % (A) 5 %; HCT 39.9 % (39.0-53.0); HGB 12.8 gm/dL (13.0-17.5); Lymphocytes # (A) 1.2 k/uL (1.0-4.8); Lymphocytes % (A) 24 %; MCH 28.7 pg (25.0-35.0); MCHC 32.2 g/dL (31.0-37.0); MCV 89.1 fL (80.0-100.0); Mean Platelet Volume 8.3; Monocytes # (A) 0.4 k/uL (0-1.0); Monocytes % (A) 9 %; Neutrophils % (A) 60 %; Platelet Count 169 k/uL (150-450); RBC 4.48 m/uL (4.30-5.90)
[2019-08-07 06:57] LABS: INR 1.1 (<1.2); Partial Thromboplastin Time 53.8 sec (22.0-30.0); Prothrombin Time 11.4 sec (9.0-12.0)
[2019-08-07 06:58] LABS: Albumin 4.1 g/dL (3.5-5.0); Calcium 9.5 mg/dL (8.4-10.2); Potassium 4.7 mmol/L (3.5-5.1); Total Bilirubin 0.4 mg/dL (0.2-1.3); Total Protein 6.7 g/dL (6.3-8.2)
[2019-08-07] MEDS: FENOFIBRATE 54 MG TAB PO SCH (08:52)
[2019-08-07] MEDS: ASPIRIN 81 MG PO SCH (08:52)
[2019-08-07] MEDS: METOPROLOL TARTRATE 25 MG TAB PO SCH ×2 (08:52→21:17)
[2019-08-07] MEDS: NIACIN TR 500 MG CAPLET PO SCH (08:52)
[2019-08-07] MEDS: ATORVASTATIN 40 MG TAB PO SCH (08:52)
[2019-08-07] MEDS: LEVOTHYROXINE 75 MCG TAB PO SCH (08:52)
[2019-08-07] MEDS: MUPIROCIN 2% OINT 22 GM TUBE NASAL SCH ×2 (08:52→22:03)
--- NOTE | 2019-08-07 08:58 | PN ---
PROGRESS NOTE Mr. Covington is a 69-year-old male with a known history of diabetes, and hyperlipidemia who presented with symptoms of angina pectoris and positive stress test. Underwent cardiac catheterization and was found to have critical stenosis involving the ostium of the LAD and the ostium of the left circumflex. He is scheduled to undergo coronary bypass grafting on Friday. He is doing well this morning. He is denying any chest pain. His breathing has been stable. He denies any dizziness or palpitations. He denies any nausea. He continues to be on IV heparin, aspirin once a day, Lipitor 40 mg daily, metoprolol tartrate 25 mg twice a day. PHYSICAL EXAMINATION: Blood pressure 119/50 with a heart rate in 50s. LUNGS: Clear. HEART: Regular rate and rhythm. S1, S2. No S3. No rub. ABDOMEN: Soft, nontender. EXTREMITIES: No edema. Right radial pulse intact. LAB DATA: Hemoglobin 12.8 BUN creatinine 19 and 1.1. ASSESSMENT: 1. Severe obstructive disease involving the ostium of the LAD and the ostium of the left circumflex. 2. Diabetes. 3. Hyperlipidemia. RECOMMENDATIONS: Patient will be scheduled to undergo surgical intervention on Friday. We will continue the IV heparin at this time. Continue rest of his medical regimen. Depending on his progress, further recommendations will be made. MMODL / FARRUKHN: [id number] /
--- NOTE | 2019-08-07 11:26 | P.PN ---
Subjective Progress Note Date: 08/07/19 Principal diagnosis: This is a 69-year-old gentleman who is followed by Dr. Hunter Ng on an outpatient basis. He is a past medical history significant for aed-lcxccmy-tvrzntdjz diabetes mellitus type 2, dyslipidemia, hypothyroid, glaucoma, varicose veins to his bilateral lower extremities and family history of coronary artery disease less than 60 years of age. Recently, the patient has had complaints of shortness of breath on exertion. He denies any complaints of chest discomfort, palpitations, fever, diarrhea, orthopnea, or edema. Subsequently he was seen by Dr. Kellogg from [facility]ology [facility] and he underwent a nuclear Cardiolite stress test on 07/15/2019 which demonstrated an abnormal myocardial perfusion imaging with reversible mid anterior wall defect and inferior wall defect consistent with stress-induced ischemia possibly in the diagonal branch and the RCA territory. It also showed the left ventricular systolic function to be mildly impaired. During the stress test he did have good exercise tolerance with positive electrocardiographic stress testing with chest discomfort during exercise consistent with stress-induced ischemia. He also underwent a 2-D echocardiogram which demonstrated a normal left ventricular size with normal function, normal diastolic function with an ejection fraction of 55%, mild tricuspid valve regurgitation and mild mitral valve regurgitation. Due to the abnormal stress test and his above-mentioned symptoms he underwent elective cardiac catheterization today which demonstrated a 30% stenosis to his left main coronary artery, a 99% stenosis to his proximal circumflex coronary artery, and an 80% stenosis to his proximal left anterior descending coronary artery. Due to the findings on the heart catheterization a consult was placed to Dr. Drake Gibbs from cardiothoracic surgery for further evaluation and surgical recommendations. On 08/07/2019 the patient was seen in follow-up at his bedside on the cardiac s tepdown unit. He is sitting up to the bedside chair, he is in no acute distress. Denies any complaints of pain or shortness of breath at this time. He is hemodynamically stable, oxygen saturations are 99% on room air and he is achieving 3500 mL on his incentive spirometry. The patient does report that he does have a family history of premature coronary artery disease with one of his brothers having a myocardial infarction at age 31 and the other brother having a myocardial infarction at age 49. Lab results completed today show a WBC count 5.0, hemoglobin 12.8, hematocrit 39.9, platelets 169, BUN 19, creatinine 1.10. A bedside FEV1 was completed by the respiratory therapist which showed a 95% of predicted value. His carotid Doppler studies showed no significant flow- limiting stenosis by velocity measurements. Preoperative instructions reviewed with the patient and his questions were answered to the best viability. Objective - Vital Signs Vital signs: Vital Signs Temp 97.9 F 08/07/19 08:00 Pulse 78 08/07/19 08:00 Resp 18 08/07/19 08:00 BP 136/70 08/07/19 08:00 Pulse Ox 99 08/07/19 08:00 Intake & Output 08/06/19 08/07/19 08/07/19 18:59 06:59 18:59 Intake Total 880 67.139 120 Balance 880 67.139 120 Weight 76.8 kg 75.8 kg Intake: IV 400 10 0.9 10 Intake, IV Titration 57.139 Amount Heparin Sod,Pork in 0.45% 57.139 NaCl 25,000 unit In 0.45 % NaCl 1 250ml.bag @ 12 UNITS/KG/HR 9.216 mls/hr IV .Q24H AMINATA Rx#: [id number] Oral 480 120 Other: Voiding Method Toilet Toilet # Voids 1 - Constitutional General appearance: Present: average body habitus, cooperative, no acute distress - EENT Eyes: Present: PERRLA, dentition normal, normal appearance. Absent: scleral icterus ENT: Present: hearing grossly normal, normal oropharynx. Absent: thrush - Neck Details: Neck supple, no JVD. Neck: Absent: lymphadenopathy, thyromegaly - Respiratory Details: Lungs essentially clear throughout. Respirations are symmetrical and nonlabored. Oxygen saturation is 99% on room air. Achieving 3500 mL on his incentive spirometry. - Cardiovascular Details: Regular rhythm and rate. S1 and S2 present, negative for S3, gallop or murmur. - Gastrointestinal Gastrointestinal Comment(s): Abdomen is soft, nontender nondistended. Active bowel sounds present all 4 abdominal quadrants. No guarding or rigidity. No organomegaly. - Integumentary Integumentary Comment(s): Skin is warm and dry. No clubbing or cyanosis is present. No rash or abnormal pigmentation is present. - Neurologic Neurologic: Present: CNII-XII intact - Musculoskeletal Musculoskeletal: Present: gait normal, strength equal bilaterally - Psychiatric Psychiatric: Present: A&O x's 3, appropriate affect, intact judgment & insight - Allied health notes Allied health notes reviewed: nursing - Labs CBC & Chem 7: 08/07/19 05:48 08/07/19 05:48 Labs: Abnormal Lab Results - Last 24 Hours (Table) 08/06/19 08/06/19 08/06/19 Range/Units 16:50 20:20 20:28 Hgb (13.0-17.5) gm/dL APTT 32.0 H (22.0-30.0) sec Glucose (74-99) mg/dL POC Glucose (mg/dL) 220 H 150 H (75-99) mg/dL Alkaline Phosphatase (38-126) U/L HDL Cholesterol (40-60) mg/dL 08/07/19 08/07/19 08/07/19 Range/Units 02:45 05:48 05:48 Hgb 12.8 L (13.0-17.5) gm/dL APTT 51.7 H 53.8 H (22.0-30.0) sec Glucose (74-99) mg/dL POC Glucose (mg/dL) (75-99) mg/dL Alkaline Phosphatase (38-126) U/L HDL Cholesterol (40-60) mg/dL 08/07/19 08/07/19 Range/Units 05:48 06:29 Hgb (13.0-17.5) gm/dL APTT (22.0-30.0) sec Glucose 126 H (74-99) mg/dL POC Glucose (mg/dL) 128 H (75-99) mg/dL Alkaline Phosphatase 37 L (38-126) U/L HDL Cholesterol 32 L (40-60) mg/dL Microbiology - Last 24 Hours (Table) 08/06/19 13:00 Nasal Screen MRSA/MSSA - Preliminary Nasal Swab - Imaging and Cardiology Venous US: report reviewed, image reviewed Carotid duplex study results reviewed. Assessment and Plan Assessment: 1. Symptomatic multivessel coronary artery disease. 2. History of dyslipidemia. 3. Qwk-pxvrbre-qmoihgclh diabetes mellitus. 4. History of Hypothyroid. 5. History of glaucoma 6. Family history of coronary artery disease less than 60 years of age. Plan: 1. Preoperative teaching reviewed with the patient and reinforced. 2. The patient is scheduled for coronary revascularization surgery with JACOB/CRISSY to be performed by Dr. Drake Gibbs on 08/09/2019. 3. A 5 m walk test was completed with the patient today time 1:2.87 seconds, time 2: 2.93 seconds, time 3:2.68 seconds. 4. STS risk score was calculated and discussed with the patient by Dr. Drake Gibbs. 5. He will be made nothing by mouth after midnight 08/09/2019. 6. Medical management and other comorbidities per primary care service. 7. Continue to optimize medical management with beta jyoti, aspirin and statin. 8. Heparin drip management per cardiology, discontinue heparin drip 6 AM Friday08/09/2019. 9. Encourage use of his incentive spirometry 10 times every hour while awake. 10. More recommendations to follow based on patient's clinical course. Time with Patient: Less than 30
[2019-08-07 12:11] LABS: Glucose,Whole Blood 143 mg/dL (75-99)
[2019-08-07] MEDS: HEPARIN SOD,PORK IN 0.45% NACL 25,000 UNIT in 0.45% NACL 1 250ML.BAG IV SCH (12:55)
--- NOTE | 2019-08-07 13:18 | P.PN ---
Subjective Progress Note Date: 08/07/19 Principal diagnosis: Coronary artery disease This is a very pleasant 69-year-old gentleman who follows with Dr. Ng as his primary care provider. He has a history of hyperlipidemia, diabetes mellitus, hypothyroidism. He had recently been having issues with dyspnea on exertion. He is a lifelong nonsmoker. Stress test revealed evidence of ischemia and he was brought in today electively for a cardiac catheterization with Dr. Kellogg. He was found to have moderate disease in the distal left main with critical stenosis involving the ostium of the LAD in the right coronary artery. He was recommended coronary artery bypass grafting surgery which will be performed on 08/09/2019. We're consulted for critical care/mechanical ventilator management. He is seen today in consultation. He is awake and alert in no acute distress. Denies any worsening shortness of breath, cough or congestion. No chest pain currently. He is maintaining O2 saturations in the 90s on room air. He's bradycardic. Slightly hypertensive. White count 5.7. Hemoglobin 14.6. Platelets 221. Glucose 156. Urinalysis clear. He's been initiated on a heparin drip. 0.9 normal saline @ 100 ML's per hour. The patient is seen today 08/07/2019 in follow-up on the selective care unit. He is currently sitting up in a chair at the bedside. Awake and alert in no acute distress. He denies any chest pain. No shortness of breath, cough or congestion. He is maintaining O2 saturations in the upper 90s on room air. He's afebrile. Hemodynamically stable. His FEV1 value is 95% of predicted. White count 5.0. Hemoglobin 12.8. INR 1.1. Sodium 139. Potassium 4.7. Creatinine 1.10. CoVID 19 screen was negative. He has been practicing with his incentive spirometer and doing well. Chest x-ray revealed no acute pulmonary process. Carotid Dopplers revealed no significant carotid artery stenosis. He remains on a heparin drip. Plan is for surgery on 08/09/2019. Objective - Vital Signs Vital signs: Vital Signs Temp 97.8 F 08/07/19 12:00 Pulse 55 L 08/07/19 12:00 Resp 18 08/07/19 12:00 BP 136/77 08/07/19 12:00 Pulse Ox 97 08/07/19 12:00 Intake & Output 08/06/19 08/07/19 08/07/19 18:59 06:59 18:59 Intake Total 880 67.139 305.664 Balance 880 67.139 305.664 Weight 76.8 kg 75.8 kg Intake: IV 400 10 0.9 10 Intake, IV Titration 57.139 185.664 Amount Heparin Sod,Pork in 0.45% 57.139 185.664 NaCl 25,000 unit In 0.45 % NaCl 1 250ml.bag @ 12 UNITS/KG/HR 9.216 mls/hr IV .Q24H [facility] Rx#: [id number] Oral 480 120 Other: Voiding Method Toilet Toilet # Voids 1 - Exam GENERAL EXAM: Alert, active, very pleasant 69-year-old gentleman, on room air comfortable in no apparent distress. HEAD: Normocephalic. EYES: Normal reaction of pupils, equal size. NOSE: Clear with pink turbinates. THROAT: No erythema or exudates. NECK: No masses, no JVD. CHEST: No chest wall deformity. LUNGS: Equal air entry with no crackles, wheeze, rhonchi or dullness. CVS: S1 and S2 normal with no audible murmur, regular rhythm. ABDOMEN: No hepatosplenomegaly, normal bowel sounds, no guarding or rigidity. SPINE: No scoliosis or deformity SKIN: No rashes CENTRAL NERVOUS SYSTEM: No focal deficits, tone is normal in all 4 extremities. EXTREMITIES: There is no peripheral edema. No clubbing, no cyanosis. Peripheral pulses are intact. - Labs CBC & Chem 7: 08/07/19 05:48 08/07/19 05:48 Labs: Abnormal Lab Results - Last 24 Hours (Table) 08/06/19 08/06/19 08/06/19 Range/Units 16:50 20:20 20:28 Hgb (13.0-17.5) gm/dL APTT 32.0 H (22.0-30.0) sec Glucose (74-99) mg/dL POC Glucose (mg/dL) 220 H 150 H (75-99) mg/dL Alkaline Phosphatase (38-126) U/L HDL Cholesterol (40-60) mg/dL 08/07/19 08/07/19 08/07/19 Range/Units 02:45 05:48 05:48 Hgb 12.8 L (13.0-17.5) gm/dL APTT 51.7 H 53.8 H (22.0-30.0) sec Glucose (74-99) mg/dL POC Glucose (mg/dL) (75-99) mg/dL Alkaline Phosphatase (38-126) U/L HDL Cholesterol (40-60) mg/dL 08/07/19 08/07/19 08/07/19 Range/Units 05:48 06:29 12:06 Hgb (13.0-17.5) gm/dL APTT (22.0-30.0) sec Glucose 126 H (74-99) mg/dL POC Glucose (mg/dL) 128 H 143 H (75-99) mg/dL Alkaline Phosphatase 37 L (38-126) U/L HDL Cholesterol 32 L (40-60) mg/dL Microbiology - Last 24 Hours (Table) 08/06/19 13:00 Nasal Screen MRSA/MSSA - Preliminary Nasal Swab Assessment and Plan Assessment: 1 Dyspnea on exertion in a patient found to have coronary artery disease with moderate disease in the distal left main with critical stenosis involving the ostium of the LAD and RCA. Coronary artery bypass grafting surgery recommended and is planned for 08/09/2019. 2 Lifelong nonsmoker, FEV1 value 95% of predicted 3 Hyperlipidemia 4 Diabetes mellitus, type II 5 Hypothyroidism 6 Family history of premature coronary artery disease 7 History of bilateral nephrolithiasis Plan: The patient was seen and evaluated by Dr. Hough Chest x-ray reveals no acute pulmonary process FEV1 value 95% of predicted Practicing well with the incentive spirometer CoVID 19 screening negative We'll plan for early extubation protocol We'll continue to follow and make further recommendations based on his clinical status I, the cosigning physician, performed a history & physical examination of the patient. Lungs sounds are clear. Maintaining good O2 saturations in the 90s on room air. I discussed the assessment and plan of care with my nurse practitioner, Lorin Cordero. I attest to the above note as dictated by her.
[2019-08-07 14:19] LABS: Hemoglobin A1C 6.6 % (4.0-6.0)
--- NOTE | 2019-08-07 15:10 | P.PN ---
Subjective Patient is resting comfortably in a chair. He had a comfortable night. He has no rest pain when he walks a little bit he does have discomfort in the chest. He does not appear short of breath. No orthopnea or PND at night He remains on IV heparin His medications are reviewed On examination he is afebrile 97.8F pulse rate 50s normal respirations blood pressure 136/70 mmHg Breath sounds are clear no rhonchi no crackles Sounds S1 and S2 normal no murmurs no gallops abdomen is soft Extremities warm no edema Labs reviewed Normal white count, 12.8 Platelet count 165,000 Sodium 139 potassium 4.7 BUN 19 creatinine 1.1 Hemoglobin A1c 6.6 HDL 32 LDL 68 total cholesterol 129 and triglycerides 147 Impression Severe coronary artery disease awaiting coronary artery bypass grafting on Friday Continue current medications without any changes Continue telemetry monitoring Objective - Vital Signs Vital signs: Vital Signs Temp 97.8 F 08/07/19 12:00 Pulse 55 L 08/07/19 12:00 Resp 18 08/07/19 12:00 BP 136/77 08/07/19 12:00 Pulse Ox 97 08/07/19 12:00 Intake & Output 08/06/19 08/07/19 08/07/19 18:59 06:59 18:59 Intake Total 880 67.139 545.664 Balance 880 67.139 545.664 Weight 76.8 kg 75.8 kg Intake: IV 400 10 0.9 10 Intake, IV Titration 57.139 185.664 Amount Heparin Sod,Pork in 0.45% 57.139 185.664 NaCl 25,000 unit In 0.45 % NaCl 1 250ml.bag @ 12 UNITS/KG/HR 9.216 mls/hr IV .Q24H [facility] Rx#: [id number] Oral 480 360 Other: Voiding Method Toilet Toilet # Voids 1 1 # Bowel Movements 0 - Labs CBC & Chem 7: 08/07/19 05:48 08/07/19 05:48 Labs: Abnormal Lab Results - Last 24 Hours (Table) 08/06/19 08/06/19 08/06/19 Range/Units 16:50 20:20 20:28 Hgb (13.0-17.5) gm/dL APTT 32.0 H (22.0-30.0) sec Glucose (74-99) mg/dL POC Glucose (mg/dL) 220 H 150 H (75-99) mg/dL Hemoglobin A1c (4.0-6.0) % Alkaline Phosphatase (38-126) U/L HDL Cholesterol (40-60) mg/dL 08/07/19 08/07/19 08/07/19 Range/Units 02:45 05:48 05:48 Hgb 12.8 L (13.0-17.5) gm/dL APTT 51.7 H 53.8 H (22.0-30.0) sec Glucose (74-99) mg/dL POC Glucose (mg/dL) (75-99) mg/dL Hemoglobin A1c (4.0-6.0) % Alkaline Phosphatase (38-126) U/L HDL Cholesterol (40-60) mg/dL 08/07/19 08/07/19 08/07/19 Range/Units 05:48 05:48 06:29 Hgb (13.0-17.5) gm/dL APTT (22.0-30.0) sec Glucose 126 H (74-99) mg/dL POC Glucose (mg/dL) 128 H (75-99) mg/dL Hemoglobin A1c 6.6 H (4.0-6.0) % Alkaline Phosphatase 37 L (38-126) U/L HDL Cholesterol 32 L (40-60) mg/dL 08/07/19 Range/Units 12:06 Hgb (13.0-17.5) gm/dL APTT (22.0-30.0) sec Glucose (74-99) mg/dL POC Glucose (mg/dL) 143 H (75-99) mg/dL Hemoglobin A1c (4.0-6.0) % Alkaline Phosphatase (38-126) U/L HDL Cholesterol (40-60) mg/dL Microbiology - Last 24 Hours (Table) 08/06/19 13:00 Nasal Screen MRSA/MSSA - Preliminary Nasal Swab
--- NOTE | 2019-08-07 15:46 | P.PN ---
Subjective Progress Note Date: 08/07/19 Principal diagnosis: Exertional shortness of breath, severe CAD Patient was seen and examined. No acute events overnight. Should with no complaints today. He denies any chest pain, shortness of breath or palpitations. No nausea or vomiting. No fever or chills. Objective - Vital Signs Vital signs: Vital Signs Temp 97.7 F 08/07/19 15:40 Pulse 61 08/07/19 15:40 Resp 16 08/07/19 15:40 BP 142/68 08/07/19 15:40 Pulse Ox 99 08/07/19 15:40 Intake & Output 08/06/19 08/07/19 08/07/19 18:59 06:59 18:59 Intake Total 880 67.139 545.664 Balance 880 67.139 545.664 Weight 76.8 kg 75.8 kg Intake: IV 400 10 0.9 10 Intake, IV Titration 57.139 185.664 Amount Heparin Sod,Pork in 0.45% 57.139 185.664 NaCl 25,000 unit In 0.45 % NaCl 1 250ml.bag @ 12 UNITS/KG/HR 9.216 mls/hr IV .Q24H [facility] Rx#: [id number] Oral 480 360 Other: Voiding Method Toilet Toilet # Voids 1 1 # Bowel Movements 0 - Exam General: [non toxic], [no distress], [appears at stated age] Derm: [warm], [dry] Head: [atraumatic], [normocephalic], [symmetric] Eyes: [EOMI], [no lid lag], [anicteric sclera] Mouth: [no lip lesion], [mucus membranes moist] Cardiovascular: [S1S2 reg], [no murmur], [positive DP pulse bilateral], Lungs: [CTA bilateral], [no rhonchi, no rales] , [no accessory muscle use] Abdominal: [soft], [ nontender to palpation], [no guarding], [no appreciable organomegaly] Ext: [no gross muscle atrophy], [no edema], [no contractures] Neuro: [no focal neuro deficits] Psych: [Alert], [oriented], [appropriate affect] - Labs CBC & Chem 7: 08/07/19 05:48 08/07/19 05:48 Labs: Abnormal Lab Results - Last 24 Hours (Table) 08/06/19 08/06/19 08/06/19 Range/Units 16:50 20:20 20:28 Hgb (13.0-17.5) gm/dL APTT 32.0 H (22.0-30.0) sec Glucose (74-99) mg/dL POC Glucose (mg/dL) 220 H 150 H (75-99) mg/dL Hemoglobin A1c (4.0-6.0) % Alkaline Phosphatase (38-126) U/L HDL Cholesterol (40-60) mg/dL 08/07/19 08/07/19 08/07/19 Range/Units 02:45 05:48 05:48 Hgb 12.8 L (13.0-17.5) gm/dL APTT 51.7 H 53.8 H (22.0-30.0) sec Glucose (74-99) mg/dL POC Glucose (mg/dL) (75-99) mg/dL Hemoglobin A1c (4.0-6.0) % Alkaline Phosphatase (38-126) U/L HDL Cholesterol (40-60) mg/dL 08/07/19 08/07/19 08/07/19 Range/Units 05:48 05:48 06:29 Hgb (13.0-17.5) gm/dL APTT (22.0-30.0) sec Glucose 126 H (74-99) mg/dL POC Glucose (mg/dL) 128 H (75-99) mg/dL Hemoglobin A1c 6.6 H (4.0-6.0) % Alkaline Phosphatase 37 L (38-126) U/L HDL Cholesterol 32 L (40-60) mg/dL 08/07/19 Range/Units 12:06 Hgb (13.0-17.5) gm/dL APTT (22.0-30.0) sec Glucose (74-99) mg/dL POC Glucose (mg/dL) 143 H (75-99) mg/dL Hemoglobin A1c (4.0-6.0) % Alkaline Phosphatase (38-126) U/L HDL Cholesterol (40-60) mg/dL Microbiology - Last 24 Hours (Table) 08/06/19 13:00 Nasal Screen MRSA/MSSA - Preliminary Nasal Swab Assessment and Plan Assessment: Exertional shortness of breath with severe CAD Diabetes mellitus Hypothyroidism Coronary angiogram performed today. As per cardiology, patient is a candidate for CABG. Patient agreeable. Plans: CABG scheduled for 08/09/2019. Continue aspirin, Lipitor and metoprolol. Telemetry monitoring. Cardiology, pulmonology, cardiothoracic surgery on board. Continue heparin drip. Whawm-lo-zsda glucose 143. Plans: Insulin sliding scale. Regular Accu-Cheks. Hypoglycemic precautions. Plans: Resume Synthroid. [Plans for CABG on Friday.]
[2019-08-07 16:35] LABS: Glucose,Whole Blood 141 mg/dL (75-99)
[2019-08-07] MEDS: NETARSUDIL MESYLATE BOTH EYES SCH (18:42)
[2019-08-07 20:36] LABS: Glucose,Whole Blood 156 mg/dL (75-99)
[2019-08-07] MEDS: LATANOPROST 0.005% OPHTH DROPS 2.5 ML BTL BOTH EYES SCH (21:17)
[2019-08-07] MEDS: MELATONIN 1 MG TAB PO SCH (21:17)
[2019-08-08 06:11] LABS: Glucose,Whole Blood 144 mg/dL (75-99)
[2019-08-08] MEDS: INSULIN ASPART (NovoLOG) 100 UNIT/ML VIAL SQ SCH ×4 (06:56→20:45)
[2019-08-08 06:57] LABS: HCT 39.5 % (39.0-53.0); HGB 13.3 gm/dL (13.0-17.5); MCH 28.8 pg (25.0-35.0); MCHC 33.8 g/dL (31.0-37.0); MCV 85.4 fL (80.0-100.0); Mean Platelet Volume 8.3; Platelet Count 181 k/uL (150-450); RBC 4.62 m/uL (4.30-5.90); RDW 13.2 % (11.5-15.5); WBC 5.5 k/uL (3.8-10.6)
[2019-08-08 07:18] LABS: Calcium 9.8 mg/dL (8.4-10.2); Potassium 4.3 mmol/L (3.5-5.1)
[2019-08-08] MEDS ORDERED: NETARSUDIL MESYLATE BOTH EYES SCH (09:00)
[2019-08-08] MEDS: LEVOTHYROXINE 75 MCG TAB PO SCH (09:17)
[2019-08-08] MEDS: METOPROLOL TARTRATE 25 MG TAB PO SCH ×2 (09:17→20:44)
[2019-08-08] MEDS: ASPIRIN 81 MG PO SCH (09:17)
[2019-08-08] MEDS: ATORVASTATIN 40 MG TAB PO SCH (09:17)
[2019-08-08] MEDS: NIACIN TR 500 MG CAPLET PO SCH (09:18)
[2019-08-08] MEDS: FENOFIBRATE 54 MG TAB PO SCH (09:18)
[2019-08-08] MEDS: NETARSUDIL MESYLATE BOTH EYES SCH (09:19)
[2019-08-08] MEDS: MUPIROCIN 2% OINT 22 GM TUBE NASAL SCH ×2 (09:19→20:45)
--- NOTE | 2019-08-08 10:59 | P.PN ---
Subjective Progress Note Date: 08/08/19 Principal diagnosis: This is a 69-year-old gentleman who is followed by Dr. Hunter Ng on an outpatient basis. He is a past medical history significant for wpd-dbxdyty-lrtepzdmv diabetes mellitus type 2, dyslipidemia, hypothyroid, glaucoma, varicose veins to his bilateral lower extremities and family history of coronary artery disease less than 60 years of age. Recently, the patient has had complaints of shortness of breath on exertion. He denies any complaints of chest discomfort, palpitations, fever, diarrhea, orthopnea, or edema. Subsequently he was seen by Dr. Kellogg from cardiology associates and he underwent a nuclear Cardiolite stress test on 07/15/2019 which demonstrated an abnormal myocardial perfusion imaging with reversible mid anterior wall defect and inferior wall defect consistent with stress-induced ischemia possibly in the diagonal branch and the RCA territory. It also showed the left ventricular systolic function to be mildly impaired. During the stress test he did have good exercise tolerance with positive electrocardiographic stress testing with chest discomfort during exercise consistent with stress-induced ischemia. He also underwent a 2-D echocardiogram which demonstrated a normal left ventricular size with normal function, normal diastolic function with an ejection fraction of 55%, mild tricuspid valve regurgitation and mild mitral valve regurgitation. Due to the abnormal stress test and his above-mentioned symptoms he underwent elective cardiac catheterization today which demonstrated a 30% stenosis to his left main coronary artery, a 99% stenosis to his proximal circumflex coronary artery, and an 80% stenosis to his proximal left anterior descending coronary artery. Due to the findings on the heart catheterization a consult was placed to Dr. Drake Gibbs from cardiothoracic surgery for further evaluation and surgical recommendations. On 08/07/2019 the patient was seen in follow-up at his bedside on the cardiac s tepdown unit. He is sitting up to the bedside chair, he is in no acute distress. Denies any complaints of pain or shortness of breath at this time. He is hemodynamically stable, oxygen saturations are 99% on room air and he is achieving 3500 mL on his incentive spirometry. The patient does report that he does have a family history of premature coronary artery disease with one of his brothers having a myocardial infarction at age 31 and the other brother having a myocardial infarction at age 49. Lab results completed today show a WBC count 5.0, hemoglobin 12.8, hematocrit 39.9, platelets 169, BUN 19, creatinine 1.10. A bedside FEV1 was completed by the respiratory therapist which showed a 95% of predicted value. His carotid Doppler studies showed no significant flow- limiting stenosis by velocity measurements. Preoperative instructions reviewed with the patient and his questions were answered to the best viability. On 08/08/2019 the patient was seen in follow-up at his bedside on the cardiac stepdown unit. He is sitting up to the bedside chair, he is in no acute distress and denies any complaints of shortness of breath or pain. He remains hemodynamically stable, remains afebrile and his oxygen saturations are 98% on room air. He is achieving 7204-6523 mL on his incentive spirometry. Preoperative teaching has been reinforced with the patient, and his has been updated per phone and her questions answered to the best of my ability. He did have a bedside FEV1 completed yesterday by respiratory therapy and it showed a predicted value of 95%. Laboratory results today show a WBC count 5.5, hemoglobin 13.3, platelets 181, BUN 23 and creatinine 1.15. A COVID 19 test was completed and was negative. He is scheduled for coronary artery bypass grafting surgery tomorrow 08/09/2019 to be performed by Dr. Drake Gibbs. Objective - Vital Signs Vital signs: Vital Signs Temp 97.6 F 08/08/19 08:00 Pulse 80 08/08/19 08:00 Resp 18 08/08/19 08:00 BP 134/69 08/08/19 08:00 Pulse Ox 96 08/08/19 08:00 Intake & Output 08/07/19 08/08/19 08/08/19 18:59 06:59 18:59 Intake Total 545.664 240 Balance 545.664 240 Weight 74.9 kg Intake: Intake, IV Titration 185.664 Amount Heparin Sod,Pork in 0.45% 185.664 NaCl 25,000 unit In 0.45 % NaCl 1 250ml.bag @ 12 UNITS/KG/HR 9.216 mls/hr IV .Q24H [facility] Rx#: [id number] Oral 360 240 Other: Voiding Method Toilet Toilet Toilet # Voids 1 1 # Bowel Movements 0 - Exam This is a a pleasant 69-year-old gentleman who is currently sitting up to the bedside chair in the cardiac stepdown unit. He is in no acute distress. Oxygen saturations are 96% on room air. - Constitutional General appearance: Present: average body habitus, cooperative, no acute distress - EENT Eyes: Present: PERRLA, dentition normal, normal appearance. Absent: scleral icterus ENT: Present: hearing grossly normal, normal oropharynx - Neck Details: Neck is supple, no lymphadenopathy. Neck: Absent: lymphadenopathy, thyromegaly - Respiratory Details: Lung sounds are essentially clear throughout. Respirations are symmetrical and nonlabored. Oxygen saturation are 96% on room air. He is achieving 9692-7423 mL on his incentive spirometry. - Cardiovascular Details: Regular rhythm and rate. S1 and S2 present, negative for S3, gallop or murmur. No edema present. - Gastrointestinal Gastrointestinal Comment(s): Abdomen is soft, nontender and nondistended. Active bowel sounds present all 4 abdominal quadrants. No guarding or rigidity. No organomegaly appreciated. - Integumentary Integumentary Comment(s): Skin is warm and dry. No clubbing or cyanosis is present. No rash or abnormal pigmentation is present. - Neurologic Neurologic: Present: CNII-XII intact - Musculoskeletal Musculoskeletal: Present: gait normal, strength equal bilaterally - Psychiatric Psychiatric: Present: A&O x's 3, appropriate affect, intact judgment & insight - Allied health notes Allied health notes reviewed: nursing - Labs CBC & Chem 7: 08/08/19 06:13 08/08/19 06:13 Labs: Abnormal Lab Results - Last 24 Hours (Table) 08/07/19 08/07/19 08/07/19 Range/Units 05:48 12:06 16:34 APTT (22.0-30.0) sec BUN (9-20) mg/dL Glucose (74-99) mg/dL POC Glucose (mg/dL) 143 H 141 H (75-99) mg/dL Hemoglobin A1c 6.6 H (4.0-6.0) % 08/07/19 08/08/19 08/08/19 Range/Units 20:34 06:10 06:13 APTT 52.9 H (22.0-30.0) sec BUN (9-20) mg/dL Glucose (74-99) mg/dL POC Glucose (mg/dL) 156 H 144 H (75-99) mg/dL Hemoglobin A1c (4.0-6.0) % 08/08/19 Range/Units 06:13 APTT (22.0-30.0) sec BUN 23 H (9-20) mg/dL Glucose 140 H (74-99) mg/dL POC Glucose (mg/dL) (75-99) mg/dL Hemoglobin A1c (4.0-6.0) % Microbiology - Last 24 Hours (Table) 08/06/19 13:00 Nasal Screen MRSA/MSSA - Final Nasal Swab Assessment and Plan Assessment: 1. Symptomatic multivessel coronary artery disease. 2. History of dyslipidemia. 3. Iav-imwhfoc-ujougtxka diabetes mellitus. 4. History of Hypothyroid. 5. History of glaucoma 6. Family history of coronary artery disease less than 60 years of age. Plan: 1. Preoperative teaching reviewed with the patient and reinforced. The patient's was called and update on his care and preoperative teaching was also discussed. 2. The patient is scheduled for coronary revascularization surgery with JAMES/CRISSY to be performed by Dr. Drake Gibbs tomorrow 08/09/2019. 3. He will be made nothing by mouth after midnight 08/09/2019. 4. Discontinue heparin drip at 4 AM 08/09/2019. 5. Medical management and other comorbidities per primary care service. 6. Continue to optimize medical management with beta jyoti, aspirin and statin. 7. Encourage use of his incentive spirometry 10 times every hour while awake. 8. More recommendations to follow based on patient's clinical course. Time with Patient: Less than 30
[2019-08-08 11:41] LABS: Glucose,Whole Blood 134 mg/dL (75-99)
[2019-08-08] MEDS: HEPARIN SOD,PORK IN 0.45% NACL 25,000 UNIT in 0.45% NACL 1 250ML.BAG IV SCH (13:44)
--- NOTE | 2019-08-08 16:27 | P.PN ---
Subjective Patient is doing well. No chest discomfort. No shortness of breath when walking around the room orthopnea PND On examination blood pressure 134/60 mmHg pulse rate of 80 is afebrile at 7.6F Breath sounds are clear no rhonchi no crackles Heart sounds S1-S2 normal no murmurs or gallops. Abdomen is soft Extent is warm edema Impression Severe coronary artery disease, multivessel Coronary artery bypass grafting on Friday Continue medical treatment Objective - Vital Signs Vital signs: Vital Signs Temp 97.6 F 08/08/19 11:24 Pulse 70 08/08/19 16:00 Resp 18 08/08/19 16:00 BP 145/74 08/08/19 16:00 Pulse Ox 100 08/08/19 16:00 Intake & Output 08/07/19 08/08/19 08/08/19 18:59 06:59 18:59 Intake Total 545.664 810 Balance 545.664 810 Weight 74.9 kg Intake: IV 20 0.9 20 Intake, IV Titration 185.664 250 Amount Heparin Sod,Pork in 0.45% 185.664 250 NaCl 25,000 unit In 0.45 % NaCl 1 250ml.bag @ 12 UNITS/KG/HR 9.216 mls/hr IV .Q24H [facility] Rx#: [id number] Oral 360 540 Other: Voiding Method Toilet Toilet Toilet # Voids 1 1 # Bowel Movements 0 - Labs CBC & Chem 7: 08/08/19 06:13 08/08/19 06:13 Labs: Abnormal Lab Results - Last 24 Hours (Table) 08/07/19 08/07/19 08/08/19 Range/Units 16:34 20:34 06:10 APTT (22.0-30.0) sec BUN (9-20) mg/dL Glucose (74-99) mg/dL POC Glucose (mg/dL) 141 H 156 H 144 H (75-99) mg/dL Crossmatch 08/08/19 08/08/19 08/08/19 Range/Units 06:13 06:13 06:13 APTT 52.9 H (22.0-30.0) sec BUN 23 H (9-20) mg/dL Glucose 140 H (74-99) mg/dL POC Glucose (mg/dL) (75-99) mg/dL Crossmatch See Detail 08/08/19 Range/Units 11:40 APTT (22.0-30.0) sec BUN (9-20) mg/dL Glucose (74-99) mg/dL POC Glucose (mg/dL) 134 H (75-99) mg/dL Crossmatch Microbiology - Last 24 Hours (Table) 08/06/19 13:00 Nasal Screen MRSA/MSSA - Final Nasal Swab
[2019-08-08 16:38] LABS: Glucose,Whole Blood 194 mg/dL (75-99)
--- NOTE | 2019-08-08 16:39 | P.PN ---
Subjective Progress Note Date: 08/08/19 Principal diagnosis: Exertional shortness of breath, severe CAD Patient was seen and examined. No acute events overnight. Should with no complaints today. He denies any chest pain, shortness of breath or palpitations. No nausea or vomiting. No fever or chills. Objective - Vital Signs Vital signs: Vital Signs Temp 97.6 F 08/08/19 11:24 Pulse 70 08/08/19 16:00 Resp 18 08/08/19 16:00 BP 145/74 08/08/19 16:00 Pulse Ox 100 08/08/19 16:00 Intake & Output 08/07/19 08/08/19 08/08/19 18:59 06:59 18:59 Intake Total 545.664 810 Balance 545.664 810 Weight 74.9 kg Intake: IV 20 0.9 20 Intake, IV Titration 185.664 250 Amount Heparin Sod,Pork in 0.45% 185.664 250 NaCl 25,000 unit In 0.45 % NaCl 1 250ml.bag @ 12 UNITS/KG/HR 9.216 mls/hr IV .Q24H [facility] Rx#: [id number] Oral 360 540 Other: Voiding Method Toilet Toilet Toilet # Voids 1 1 # Bowel Movements 0 - Exam General: [non toxic], [no distress], [appears at stated age] Derm: [warm], [dry] Head: [atraumatic], [normocephalic], [symmetric] Eyes: [EOMI], [no lid lag], [anicteric sclera] Mouth: [no lip lesion], [mucus membranes moist] Cardiovascular: [S1S2 reg], [no murmur], [positive DP pulse bilateral], Lungs: [CTA bilateral], [no rhonchi, no rales] , [no accessory muscle use] Abdominal: [soft], [ nontender to palpation], [no guarding], [no appreciable organomegaly] Ext: [no gross muscle atrophy], [no edema], [no contractures] Neuro: [no focal neuro deficits] Psych: [Alert], [oriented], [appropriate affect] - Labs CBC & Chem 7: 08/08/19 06:13 08/08/19 06:13 Labs: Abnormal Lab Results - Last 24 Hours (Table) 08/07/19 08/08/19 08/08/19 Range/Units 20:34 06:10 06:13 APTT (22.0-30.0) sec BUN (9-20) mg/dL Glucose (74-99) mg/dL POC Glucose (mg/dL) 156 H 144 H (75-99) mg/dL Crossmatch See Detail 08/08/19 08/08/19 08/08/19 Range/Units 06:13 06:13 11:40 APTT 52.9 H (22.0-30.0) sec BUN 23 H (9-20) mg/dL Glucose 140 H (74-99) mg/dL POC Glucose (mg/dL) 134 H (75-99) mg/dL Crossmatch 08/08/19 Range/Units 16:25 APTT (22.0-30.0) sec BUN (9-20) mg/dL Glucose (74-99) mg/dL POC Glucose (mg/dL) 194 H (75-99) mg/dL Crossmatch Microbiology - Last 24 Hours (Table) 08/06/19 13:00 Nasal Screen MRSA/MSSA - Final Nasal Swab Assessment and Plan Assessment: Exertional shortness of breath with severe CAD Diabetes mellitus Hypothyroidism Coronary angiogram performed today. As per cardiology, patient is a candidate for CABG. Patient agreeable. Plans: CABG scheduled for 08/09/2019. Continue aspirin, Lipitor and metoprolol. Telemetry monitoring. Cardiology, pulmonology, cardiothoracic surgery on board. Continue heparin drip. Xezpu-eh-kzcy glucose 194. Plans: Insulin sliding scale. Regular Accu-Cheks. Hypoglycemic precautions. Plans: Resume Synthroid. [Plans for CABG on Friday.]
[2019-08-08 20:37] LABS: Glucose,Whole Blood 181 mg/dL (75-99)
[2019-08-08] MEDS: MELATONIN 1 MG TAB PO SCH (20:44)
[2019-08-08] MEDS: LATANOPROST 0.005% OPHTH DROPS 2.5 ML BTL BOTH EYES SCH (20:45)
[2019-08-08] MEDS: CHLORHEXIDINE GLUCONATE 15 ML CUP MUCOUS MEM ONE (23:15)
[2019-08-09] MEDS ORDERED: MAGNESIUM SULFATE SYG 4.06 MEQ/ML SYRINGE IV ONE (05:00)
[2019-08-09] MEDS ORDERED: PHENYLEPHRINE 40 MG in SODIUM CHLORIDE 0.9% 250 ML IV ONE (05:00)
[2019-08-09] MEDS ORDERED: PAPAVERINE 360 MG in SODIUM CHLORIDE 0.9% 90 ML IV ONE ×2 (05:00→09:20)
[2019-08-09] MEDS ORDERED: PHENYLEPHRINE 10 MG/ML VIAL IV ONE (05:00)
[2019-08-09] MEDS ORDERED: PROTAMINE SULFATE 250 MG in EMPTY BAG 1 BAG IV ONE (05:00)
[2019-08-09] MEDS ORDERED: NITROGLYCERIN-D5W PMX 25 MG/250 ML BTL IV ONE (05:00)
[2019-08-09] MEDS ORDERED: CALCIUM CHLORIDE 100 MG/ML 10 ML SYRINGE IVP ONE (05:00)
[2019-08-09] MEDS ORDERED: ALBUMIN HUMAN 5% 500 ML in EMPTY BAG 1 BAG IVPB ONE ×6 (05:00)
[2019-08-09] MEDS ORDERED: NITROGLYCERIN-D5W PMX 50 MG in DEXTROSE/WATER 1 250ML.BAG IV SCH ×2 (05:00→15:19)
[2019-08-09] MEDS ORDERED: ceFAZolin 2,000 MG in SODIUM CHLORIDE 0.9% 30 ML IVPB ONE (05:00)
[2019-08-09] MEDS ORDERED: METOPROLOL TARTRATE 12.5 MG TAB PO ONE (05:00)
[2019-08-09] MEDS ORDERED: HEPARIN SODIUM 1,000 UN/ML (10ML VL) IV ONE (05:00)
[2019-08-09] MEDS ORDERED: ASPIRIN 325 MG TAB PO ONE (05:00)
[2019-08-09] MEDS ORDERED: ceFAZolin 1,000 MG in SODIUM CHLORIDE 0.9% IRRIGATIO 1,000 ML IRRIGATION ONE (05:00)
[2019-08-09] MEDS ORDERED: TRANEXAMIC ACID 2,000 MG in SODIUM CHLORIDE 0.9% 80 ML IV ONE ×2 (05:00→08:45)
[2019-08-09] MEDS ORDERED: PROTAMINE SULFATE 10 MG/ML 25 ML VIAL IV ONE (05:00)
[2019-08-09] MEDS ORDERED: DEXTROSE 5% IN WATER 1,000 ML with POTASSIUM CHLORIDE 25 MEQ, SODIUM CHLORIDE 2.5MEQ/ML... IV SCH ×6 (05:00)
[2019-08-09] MEDS ORDERED: SODIUM BICARB 8.4% 50 ML SYR (1 MEQ/ML) IV ONE (05:00)
[2019-08-09] MEDS ORDERED: INSULIN REGULAR 100 UNIT in SODIUM CHLORIDE 0.9% 100 ML IV SCH (05:00)
[2019-08-09] MEDS ORDERED: ceFAZolin 2 GM in SODIUM CHLORIDE 0.9% 30 ML IVPB ONE (05:00)
[2019-08-09] MEDS ORDERED: PROPOFOL 1,000 MG in EMPTY BAG 1 BAG IV PRN (05:00)
[2019-08-09] MEDS ORDERED: ATORVASTATIN 10 MG TAB PO ONE (05:00)
[2019-08-09] MEDS ORDERED: ALBUMIN HUMAN 25% 50 ML in EMPTY BAG 1 BAG IVPB ONE (05:00)
[2019-08-09] MEDS ORDERED: MANNITOL 25% 12.5 GM/50 ML VIAL IV ONE ×2 (05:00)
[2019-08-09] MEDS ORDERED: DEXTROSE 5% IN WATER 1,000 ML with POTASSIUM CHLORIDE 110 MEQ, MAGNESIUM SULFATE 16 MEQ... IV SCH ×5 (05:00)
[2019-08-09] MEDS ORDERED: HEPARIN SODIUM,PORCINE 5,000 UNIT in SODIUM CHLORIDE 0.9% 500 ML 500 ML IV ONE (05:00)
[2019-08-09] MEDS ORDERED: NOREPINEPHRINE 4 MG in SODIUM CHLORIDE 0.9% 250 ML IV SCH (05:00)
[2019-08-09] MEDS: NETARSUDIL MESYLATE BOTH EYES SCH (05:59)
[2019-08-09] MEDS: CHLORHEXIDINE GLUCONATE 15 ML CUP MUCOUS MEM ONE (05:59)
[2019-08-09 06:34] LABS: Glucose,Whole Blood 148 mg/dL (75-99)
[2019-08-09] MEDS ORDERED: ALBUMIN HUMAN 5% (25gm) 500 ML VIAL IVPB ONE (07:25)
[2019-08-09] MEDS ORDERED: SODIUM CHLORIDE 0.9% IRRIG 3,000 ML BAG IRRIGATION ONE (07:25)
[2019-08-09] MEDS ORDERED: TRANEXAMIC ACID 1,000 MG/10 ML VIAL ONE (07:25)
[2019-08-09] MEDS ORDERED: fentaNYL (PF) 50 MCG/ML 2 ML AMP ONE (07:25)
[2019-08-09] MEDS ORDERED: SODIUM CHLORIDE 0.9% IRRIG 1,000 ML BTL IRRIGATION ONE (07:25)
[2019-08-09] MEDS ORDERED: PROPOFOL 10 MG/ML 20 ML VIAL IV ONE (07:25)
[2019-08-09] MEDS ORDERED: SUCCINYLCHOLINE CHLORIDE 100 MG/5 ML SYR IV ONE (07:25)
[2019-08-09] MEDS ORDERED: SODIUM CHLORIDE 0.9% 100 ML BAG ONE (07:25)
[2019-08-09] MEDS ORDERED: LACTATED RINGERS 1,000 ML BAG IV ONE (07:25)
[2019-08-09] MEDS ORDERED: ePHEDrine SULFATE/0.9% NACL/PF 50 MG/5 ML SYRINGE IV ONE (07:25)
[2019-08-09] MEDS ORDERED: ceFAZolin 1,000 MG VIAL ONE (07:25)
[2019-08-09] MEDS ORDERED: BUMETANIDE 0.25 MG/ML 4 ML VIAL ONE (07:25)
[2019-08-09] MEDS ORDERED: CALCIUM CHLORIDE 100 MG/ML 10 ML SYRINGE ONE (07:25)
[2019-08-09] MEDS ORDERED: LIDOCAINE 2% SYG (PF) 100 MG/5 ML ONE (07:25)
[2019-08-09] MEDS ORDERED: VECURONIUM 10 MG VIAL IV ONE (07:25)
[2019-08-09] MEDS ORDERED: PHENYLEPHRINE-0.9% NACL SYG 1 MG/10 ML SYRINGE ONE (07:25)
[2019-08-09] MEDS ORDERED: MAGNESIUM SULFATE 4 MEQ/ML 10ML VIAL ONE (07:25)
[2019-08-09] MEDS ORDERED: HEPARIN SODIUM,PORCINE 10,000 UNIT/ML 1 ML VIAL ONE (07:25)
[2019-08-09] MEDS ORDERED: MIDAZOLAM 2 MG/2 ML VIAL ONE (07:25)
[2019-08-09] MEDS ORDERED: SODIUM CHLORIDE 0.9% 250 ML BAG ONE (07:25)
[2019-08-09 08:35] LABS: ABG Base Excess 0.5 mmol/L; ABG Glucose Whole Blood 136 mg/dL (75-99); ABG HCO3 25 mmol/L (21-25); ABG Hematocrit 38 % (34.0-46.0); ABG Lactic Acid Whole Blood 1.5 mmol/L (0.5-1.6); ABG PCO2 37 mmHg (35-45); ABG PH 7.44 (7.35-7.45); ABG Potassium Whole Blood 5.5 mmol/L (3.4-4.5); ABG Sodium Whole Blood 138 mmol/L (135-146); ABG TCO2 26 mmol/L (19-24)
--- NOTE | 2019-08-09 09:03 | P.ANPRN ---
Procedure Note - Anesthesia - Invasive Line Right Arterial Line Time Out Performed: Yes Date of Procedure: 08/09/19 Time of Procedure: 07:29 Location of Patient: Phase I Preparation: Sterile Prep, Sterile Dressing Arterial Line Location: Brachial Ultrasound Used: No Narrative: 20 g R brachial arterial line placed per surgeon's request. Line placed by [employer]ACH. Right Central Line Time Out Performed: Yes Date of Procedure: 08/09/19 Time of Procedure: 07:34 Location of Patient: Phase I Preparation: Sterile Prep, Sterile Dressing Ultrasound Used: Yes Purpose - Visualization and Identification of Vasculature: Yes Needle Guage: 18 Image Stored and Saved: Yes Narrative: Central line placement per sterile protocol utilized. Right Crawford Aniya Date of Procedure: 08/09/19 Time of Procedure: 07:39 Location of Patient: Phase I Preparation: Sterile Prep, Sterile Dressing Ultrasound Used: No Narrative: SWAN Aniya placed in PA. Secured @ 43 cm. Confirmed in main PA on DARA
[2019-08-09] MEDS ORDERED: SODIUM CHLORIDE 0.9% 500 ML 500 ML with HEPARIN SODIUM,PORCINE 5,000 UNIT IV ONE ×2 (09:19)
[2019-08-09] MEDS ORDERED: ceFAZolin 1,000 MG in SODIUM CHLORIDE 0.9% 1,000 ML IRRIGATION ONE (09:20)
[2019-08-09 11:01] LABS: Hepatitis A Antibody IgM Non-Reactive (Non-Reactive); Hepatitis B Core IgM Non-Reactive (Non-Reactive); Hepatitis B Surface Antigen Non-Reactive (Non-Reactive); Hepatitis C IgG Antibody Non-Reactive (Non-Reactive)
[2019-08-09 11:30] LABS: ABG Base Excess -0.8 mmol/L; ABG Glucose Whole Blood 159 mg/dL (75-99); ABG HCO3 23 mmol/L (21-25); ABG Hematocrit 33 % (34.0-46.0); ABG Ionized Calcium 4.8 mg/dL (4.5-5.3); ABG Lactic Acid Whole Blood 1.9 mmol/L (0.5-1.6); ABG Oxygen Saturation 99.7 % (94-97); ABG PCO2 36 mmHg (35-45); ABG PH 7.42 (7.35-7.45); ABG PO2 237 mmHg (83-108); ABG Potassium Whole Blood 4.1 mmol/L (3.4-4.5); ABG Sodium Whole Blood 137 mmol/L (135-146); ABG TCO2 25 mmol/L (19-24)
[2019-08-09 12:19] LABS: ABG Base Excess -1.7 mmol/L; ABG Glucose Whole Blood 141 mg/dL (75-99); ABG HCO3 23 mmol/L (21-25); ABG Hematocrit 26 % (34.0-46.0); ABG Ionized Calcium 4.3 mg/dL (4.5-5.3); ABG Lactic Acid Whole Blood 1.8 mmol/L (0.5-1.6); ABG PCO2 35 mmHg (35-45); ABG PH 7.42 (7.35-7.45); ABG PO2 408 mmHg (83-108); ABG Potassium Whole Blood 3.8 mmol/L (3.4-4.5); ABG Sodium Whole Blood 134 mmol/L (135-146); ABG TCO2 24 mmol/L (19-24)
[2019-08-09 13:10] LABS: ABG Base Excess -1.6 mmol/L; ABG Glucose Whole Blood 242 mg/dL (75-99); ABG HCO3 23 mmol/L (21-25); ABG Hematocrit 26 % (34.0-46.0); ABG Ionized Calcium 4.4 mg/dL (4.5-5.3); ABG Oxygen Saturation 99.6 % (94-97); ABG PCO2 39 mmHg (35-45); ABG PH 7.39 (7.35-7.45); ABG PO2 242 mmHg (83-108); ABG Potassium Whole Blood 5.1 mmol/L (3.4-4.5); ABG Sodium Whole Blood 133 mmol/L (135-146); ABG TCO2 25 mmol/L (19-24)
[2019-08-09 14:30] LABS: ABG Glucose Whole Blood 167 mg/dL (75-99); ABG HCO3 21 mmol/L (21-25); ABG Hematocrit 28 % (34.0-46.0); ABG Ionized Calcium 4.6 mg/dL (4.5-5.3); ABG Oxygen Saturation 99.8 % (94-97); ABG PCO2 35 mmHg (35-45); ABG PO2 320 mmHg (83-108); ABG Potassium Whole Blood 4.5 mmol/L (3.4-4.5); ABG Sodium Whole Blood 137 mmol/L (135-146); ABG TCO2 23 mmol/L (19-24)
[2019-08-09 14:34] LABS: ABG PO2 >420 mmHg (83-108)
[2019-08-09 14:36] LABS: ABG Lactic Acid Whole Blood 2.7 mmol/L (0.5-1.6)
[2019-08-09 14:36] LABS: ABG Lactic Acid Whole Blood 2.7 mmol/L (0.5-1.6)
[2019-08-09] MEDS: INSULIN REGULAR 100 UNIT in SODIUM CHLORIDE 0.9% 100 ML IV SCH (15:15)
[2019-08-09] MEDS ORDERED: IPRATROPIUM-ALBUTEROL 3 ML NEB INHALATION PRN (15:19)
[2019-08-09] MEDS ORDERED: Phosphorus Replacement Protoco 1 EACH MISC MISCELLANE PRN (15:19)
[2019-08-09] MEDS ORDERED: AMIODARONE 360 MG in DEXTROSE 5% IN WATER 200 ML IV PRN ×2 (15:19)
[2019-08-09] MEDS ORDERED: DEXTROSE 5% IN WATER 100 ML with AMIODARONE 150 MG IV PRN (15:19)
[2019-08-09] MEDS ORDERED: LACTATED RINGERS 1,000 ML IV SCH (15:19)
[2019-08-09] MEDS ORDERED: AMIODARONE 300 MG in DEXTROSE 5% IN WATER 250 ML IV PRN ×2 (15:19)
[2019-08-09] MEDS ORDERED: Magnesium Replacement Protocol 1 EACH MISC MISCELLANE PRN (15:19)
[2019-08-09] MEDS ORDERED: Potassium Replacement Protocol 1 EACH MISC MISCELLANE PRN (15:19)
[2019-08-09] MEDS ORDERED: ALBUMIN HUMAN 5% 250 ML in EMPTY BAG 1 BAG IVPB PRN (15:19)
[2019-08-09] MEDS ORDERED: PROPOFOL 1,000 MG in EMPTY BAG 1 BAG IV SCH (15:19)
[2019-08-09] MEDS ORDERED: CALCIUM GLUCONATE 2 GM in SODIUM CHLORIDE 0.9% 100 ML IVPB PRN (15:19)
[2019-08-09] MEDS ORDERED: BENZOCAINE/MENTHOL LOZENG 1 EACH LOZENGE MUCOUS MEM PRN (15:19)
[2019-08-09] MEDS ORDERED: ONDANSETRON 4 MG/2 ML VIAL IVP PRN (15:19)
[2019-08-09 15:26] LABS: Glucose,Whole Blood 140 mg/dL (75-99)
[2019-08-09 15:46] LABS: Basophils % (A) 0 %; Eosinophils % (A) 0 %; HCT 27.4 % (39.0-53.0); Lymphocytes # (A) 0.4 k/uL (1.0-4.8); Lymphocytes % (A) 5 %; MCH 29.4 pg (25.0-35.0); MCHC 33.3 g/dL (31.0-37.0); MCV 88.1 fL (80.0-100.0); Mean Platelet Volume 8.8; Monocytes # (A) 0.5 k/uL (0-1.0); Monocytes % (A) 7 %; Neutrophils # (A) 6.2 k/uL (1.3-7.7); Neutrophils % (A) 86 %; Platelet Count 103 k/uL (150-450); RBC 3.11 m/uL (4.30-5.90); RDW 13.1 % (11.5-15.5); WBC 7.2 k/uL (3.8-10.6)
[2019-08-09 15:50] LABS: HGB 9.1 gm/dL (13.0-17.5)
[2019-08-09 15:51] LABS: Ionized Calcium 4.8 mg/dL (4.5-5.3)
[2019-08-09 15:52] LABS: ABG Base Excess -2.3 mmol/L; ABG HCO3 23 mmol/L (21-25); ABG PCO2 42 mmHg (35-45); ABG PH 7.36 (7.35-7.45); ABG PO2 >400 mmHg (83-108); ABG TCO2 25 mmol/L (19-24)
[2019-08-09 15:54] LABS: Allen Test Performed? no
[2019-08-09 15:55] LABS: INR 1.4 (<1.2); Partial Thromboplastin Time 30.6 sec (22.0-30.0); Prothrombin Time 13.6 sec (9.0-12.0)
[2019-08-09 16:00] LABS: Glucose,Whole Blood 136 mg/dL (75-99)
[2019-08-09] MEDS: CLEVIDIPINE BUTYRATE 25 MG in EMPTY BAG 1 BAG IV SCH ×3 (16:00→20:24)
--- NOTE | 2019-08-09 16:00 | XR ---
EXAMINATION TYPE: XR chest 1V portable DATE OF EXAM: 08/09/2019 Comparison: 08/06/2019 Clinical History: 69-year-old male Post Operative Cardiac Surgery Findings: ET tube is satisfactory. NG tube courses below the diaphragm. Right IJ [place]-Aniya catheter tip at the proximal most right main pulmonary artery. Median sternotomy wires and postoperative clips in the med iastinum. Bilateral chest tubes are present. Trace 4 mm right apical pneumothorax. Mild strandy atele ctasis in the lower lungs. Impression: 1. Bilateral chest tubes. There may be a trace 4 mm right apical pneumothorax reassess at follow-up. 2. Mild patchy bibasilar densities, likely atelectasis. 3. Additional postsurgical change. Lines and tubes as above.
[2019-08-09 16:07] LABS: ALT 15 U/L (4-49); AST 34 U/L (17-59); African American GFR (CKD) >90 (>60 ml/min/1.73 sqM); Albumin 2.8 g/dL (3.5-5.0); Alkaline Phosphatase 20 U/L (38-126); Anion Gap 6 mmol/L; Blood Urea Nitrogen 17 mg/dL (9-20); Calcium 7.9 mg/dL (8.4-10.2); Carbon Dioxide 24 mmol/L (22-30); Chloride 107 mmol/L (98-107); Glucose 130 mg/dL (74-99); Magnesium 2.1 mg/dL (1.6-2.3); Non-African American GFR(CKD) >90 (>60 ml/min/1.73 sqM); Potassium 4.1 mmol/L (3.5-5.1); Sodium 137 mmol/L (137-145); Total Bilirubin 0.5 mg/dL (0.2-1.3); Total Protein 4.7 g/dL (6.3-8.2)
--- NOTE | 2019-08-09 16:14 | OP ---
OPERATIVE REPORT DATE OF THE SURGERY: 08/09/2019. SURGEON: Dr. Drake Gibbs. ASSISTANTS: 1. Teofilo Guillaume, Nurse Practitioner. 2. Blaine Gaines. ANESTHESIA: General by Dr. Carson. PREOPERATIVE DIAGNOSES: 1. Unstable angina with severe ostial LAD and circumflex artery stenosis. 2. Overall preserved left ventricular function. 3. Diabetes. 4. Hyperlipidemia. 5. Strong family history CAD. 6. Hypothyroid. POSTOPERATIVE DIAGNOSES: 1. Unstable angina with severe ostial LAD and circumflex artery stenosis. 2. Overall preserved left ventricular function. 3. Diabetes. 4. Hyperlipidemia. 5. Strong family history CAD. 6. Hypothyroid. PROCEDURES: 1. Total arterial double coronary artery bypass grafting using the totally skeletonized in-situ right internal mammary artery crossing anteriorly the midline to the left anterior descending artery, the totally skeletonized Dimitrios-situ eft internal mammary artery to the first obtuse marginal artery 2. Exclusion of the left atrial appendage using a 35 mm AtriClip. 3. Transesophageal echocardiogram and epiaortic scanning.. 4. Graft flow measurements using the Red-rabbit-Stim system. INDICATION FOR SURGERY: Patient is a 69-year-old gentleman with a history of chest pain with exertion for a couple of years that got worse lately. He was seen as an outpatient and had a stress test that was positive for anterior and inferior ischemia. The patient was brought in electively for cardiac catheterization that showed severe ostial left anterior descending artery and ostial circumflex artery stenosis in the 90% range with a patent right coronary artery. The ejection fraction was estimated at around 50%. In view of this very critical anatomy, patient was considered a candidate for urgent coronary artery bypass grafting. Plan was to perform bilateral internal mammary artery grafting in view of the patient's age. The risks, benefits and alternatives, including the STS risk, were discussed with the patient and his . They understood them and agreed to proceed. DESCRIPTION OF THE PROCEDURE: The patient had a right internal jugular [place]-Aniya catheter and right radial artery line placed in the preoperative holding area. He was subsequently brought to the operating room and he had good cardiac index and normal PA pressure. Subsequently, general endotracheal anesthesia was induced uneventfully. A Jacobson catheter was inserted. The chest, abdomen and both lower extremities were prepped and draped using ChloraPrep. Ioban was used to cover the skin. Patient received 2 grams of cefazolin intravenously. Transesophageal echocardiogram confirmed normal left ventricular function and no significant valvular abnormalities. Midline sternotomy was performed and the bone was moderately osteoporotic. No bone wax was used. It was reasonably perfused. The left hemisternum was elevated and the left internal mammary artery was harvested in a totally skeletonized fashion using the plasma blade. The left pleura was intentionally opened in this process and was drained with a 19- Maltese Usama drain. The patient was given 5000 units of heparin and the mammary artery was double-clipped distally before its bifurcation and transected and was injected in with papaverine solution and it was put in in a soaked gauze with papaverine. The same was repeated on the right hemisternum. The right internal mammary artery was also harvested in a totally skeletonized fashion using the plasma blade. Most of the branches were transected between clips. The mammary artery was clipped distally before its bifurcation, transected and had an excellent pulsatile flow in it. It was also injected with papaverine in its adventitia and was left in a papaverine- soaked sponge. The right pleura was intentionally opened in this process and was drained with a 19-Maltese Usama drain. Mediastinal fat was transected between clips for the mediastinal veins and epiaortic scanning revealed normal ascending aorta. Pericardium was opened in an inverted T- fashion and a pericardial cradle was created. Findings included a normal soft aorta and normal-sized heart and no visible coronary artery disease. After systemic heparinization, after placement of respective pledgeted pursestrings, aortic cannulation in the proximal arch with a 21-Maltese Soft flow cannula and venous cannulation via the right atrial appendage with a 3-stage 29-Maltese cannula was performed. Antegrade as well as retrograde cardioplegia catheters were placed. Cardiopulmonary bypass was initiated and we looked at the target. It appeared that the LAD in its mid aspect and the obtuse marginal artery superior branch were adequate for bypass and appeared free of disease. Aorta was clamped, and during aortic clamping myocardial protection was achieved with an initial dose of 600 mL of antegrade cold blood cardioplegia with adequate arrest at 150 mL followed by 300 mL of retrograde cold blood cardioplegia. One additional dose of retrograde cardioplegia was given at 15-minute interval. The first distal anastomosis was between the totally skeletonized in situ left internal mammary arteries which was passed in a window in the left lateral pericardium and anastomosed to the first obtuse marginal artery, which was a thin-walled vessel of about 1.75 mm, using Prolene 7-0 in continuous fashion. I used a 1.5 mm shunt to better define the edges, and that was removed before completing the anastomosis. At this point and with this exposure I went ahead and excluded the left atrial appendage using a 35 mm AtriClip deployed at its base. To mention that patient had atrial fibrillation as we were putting the pursestring on the right atrium. Rewarming was started as we performed the second and last distal anastomosis between the totally skeletonized in situ right internal mammary artery that crossed the midline at the level of the mid ascending aorta, anastomosed to the mid aspect of the left anterior descending artery, which was around 1.75 mm in diameter, a thin-walled vessel, using Prolene 7-0 in continuous fashion. There was no tension on the right internal mammary artery. With that, de-airing maneuvers were done and we re-established flow to the heart from both mammary arteries. Eventually with the head down, we unclamped the aorta. After a period of reperfusion and after preliminary graft flow measurements showing excellent patent graft, we weaned off cardiopulmonary bypass without the need of any inotropic or vasopressor support. DARA showed normal LV function and the cardiac index was 3.5. At this point, we performed a formal graft flow measurement, and the flow into the right internal mammary artery to the left anterior descending artery was 23 mL/minute, pulsatility index of 2.3, and diastolic filling of 79%, showing excellent functioning graft. The flow into the left internal mammary artery to the first obtuse marginal artery was 80 mL/minute, pulsatility of 1.9, and diastolic filling of 74%, also showing another excellent functioning graft. With that, test-dose and full-dose protamine was given. Decannulation followed. The retrograde and the venous cannulation sites were reinforced with running Prolene. Pump suckers were stopped as soon as we started the protamine dose. No pacing wires were placed. One 19-Maltese Usama drain was placed substernally. Pericardium was approximated loosely over the heart with Vicryl 3-0. After ensuring adequate hemostasis and hemodynamics and after correct sponge, instrument and needle counts, the sternum was closed using 5 [id number] pineal cables after interposing Fibrillar between the sternal edges. Thorough irrigation with cefazolin followed. The rest of the closure proceeded in layers. Skin glue was applied. The patient did not receive any blood bank product but received 500 mL of Cell Saver blood. He was transferred to the ICU in stable condition on no drips except low-dose nitroglycerin. MMODL / IJN: [id number] / MTDD
--- NOTE | 2019-08-09 16:18 | P.ANPRN ---
Procedure Note - Anesthesia - DARA Intraop Pre Bypass DARA Intraop - Anesthesia Indication: CAD Date of Procedure: 08/09/19 Pre-operative Diagnosis: CAD Post-operative Diagnosis: same Surgeon: Drake Gibbs Left Ventricle: EF 50% Ejection Fraction: Normal Regional Wall Motion Abnormalities: None Left Ventricle Hypertrophy: No R. Ventricle Function: Normal Anatomy: Trileaflet Aortic Stenosis: None Aortic Regurgitation: None Mitral Stenosis: None Mitral Regurgitation: None Tricuspid Stenosis: None Tricuspid Regurgitation: None Pulmonic Stenosis: None Pulmonic Regurgitation: None R. Atrial Dilation: No R. Atrial PFO: No L. Atrial Dilation: No Aortic Dissection: No Aortic Calcification: Mild Plural Effusion: None
[2019-08-09] MEDS: IPRATROPIUM-ALBUTEROL 3 ML NEB INHALATION SCH ×4 (16:39→19:47)
[2019-08-09 17:10] LABS: Glucose,Whole Blood 178 mg/dL (75-99)
[2019-08-09] MEDS: ACETAMINOPHEN IV (For NPO) 1,000 MG in EMPTY BAG 1 BAG IVPB SCH ×2 (17:17→21:29)
[2019-08-09] MEDS: SODIUM CHLORIDE 0.9% 1,000 ML IV SCH (17:27)
[2019-08-09 17:52] LABS: Glucose,Whole Blood 176 mg/dL (75-99)
[2019-08-09 18:13] LABS: Basophils % (A) 0 %; Eosinophils % (A) 0 %; HCT 30.8 % (39.0-53.0); HGB 10.5 gm/dL (13.0-17.5); Lymphocytes # (A) 0.5 k/uL (1.0-4.8); Lymphocytes % (A) 5 %; MCH 29.8 pg (25.0-35.0); MCHC 34.2 g/dL (31.0-37.0); MCV 87.1 fL (80.0-100.0); Mean Platelet Volume 8.4; Monocytes # (A) 0.5 k/uL (0-1.0); Monocytes % (A) 5 %; Neutrophils # (A) 8.3 k/uL (1.3-7.7); Neutrophils % (A) 88 %; Platelet Count 115 k/uL (150-450); RBC 3.54 m/uL (4.30-5.90); RDW 12.9 % (11.5-15.5); WBC 9.4 k/uL (3.8-10.6)
[2019-08-09 18:52] LABS: Glucose,Whole Blood 190 mg/dL (75-99)
[2019-08-09] MEDS: KETOROLAC 30 MG/ML 1 ML VIAL IVP SCH (20:21)
[2019-08-09 20:28] LABS: Glucose,Whole Blood 179 mg/dL (75-99)
[2019-08-09 20:42] LABS: ABG Base Excess -3.8 mmol/L; ABG HCO3 21 mmol/L (21-25); ABG Oxygen Saturation 99.3 % (94-97); ABG PCO2 37 mmHg (35-45); ABG PH 7.38 (7.35-7.45); ABG PO2 140 mmHg (83-108); ABG TCO2 23 mmol/L (19-24); Allen Test Performed? Yes
[2019-08-09] MEDS ORDERED: METOPROLOL TARTRATE 12.5 MG TAB PO SCH (21:00)
[2019-08-09 21:22] LABS: Glucose,Whole Blood 173 mg/dL (75-99)
[2019-08-09] MEDS: MUPIROCIN 2% OINT 22 GM TUBE NASAL SCH (21:36)
[2019-08-09] MEDS: LATANOPROST 0.005% OPHTH DROPS 2.5 ML BTL BOTH EYES SCH (21:36)
--- NOTE | 2019-08-09 21:45 | P.PN ---
Progress Note - Text Progress Note Date: 08/09/19 Presenting complaint: Chest pain Interval history: This is a pleasant 69-year-old patient who had been having dyspnea on exertion underwent a nuclear study that showed reversible findings. Cardiac catheterization with 2 patient having a coronary bypass. Patient was extubated this evening. Patient has 3 chest tubes 2. Telemetry shows sinus rhythm. Drips include insulin, nitroglycerin, Cleviprex. Patient only following commands not able to speak and just extubated a few minutes ago. Review of systems: Was done for constitutional, cardiovascular, GI, pulmonary. relevant finding as above Active Medications Hydrocodone Bitart/Acetaminophen ([place] 5-325) 2 each PO Q4HR PRN PRN Reason: Severe Pain Hydrocodone Bitart/Acetaminophen ([place] 5-325) 1 each PO Q4HR PRN PRN Reason: Moderate Pain Albuterol/Ipratropium (Duoneb 0.5 Mg-3 Mg/3 Ml Soln) 3 ml INHALATION RT-Q2H PRN PRN Reason: Shortness Of Breath Or Wheezing Albuterol/Ipratropium (Duoneb 0.5 Mg-3 Mg/3 Ml Soln) 3 ml INHALATION RT-QID AMINATA Last Admin: 08/09/19 19:47 Dose: 3 ml Documented by: Aspirin (Aspirin) 325 mg PO DAILY [facility] Atorvastatin Calcium (Lipitor) 40 mg PO DAILY [facility] Benzocaine/Menthol (Cepacol Lozenge) 1 each MUCOUS MEM Q2H PRN PRN Reason: Sore Throat Bisacodyl (Dulcolax) 10 mg RECTAL DAILY PRN PRN Reason: Constipation Clopidogrel Bisulfate (Plavix) 75 mg PO DAILY [facility] Heparin Sodium (Porcine) (Heparin) 5,000 unit SQ Q8HR [facility] Clevidipine 25 mg/ IV Solution 50 mls @ 2 mls/hr IV .Q24H AMINATA; Protocol Last Titration: 08/09/19 21:18 Dose: 4 mg/hr, 8 mls/hr Documented by: Amiodarone HCl 150 mg/ (Dextrose/Water) 103 mls @ 618 mls/hr IV .Q10M PRN; Protocol PRN Reason: A.FIB/FLUTTER Amiodarone HCl 360 mg/ (Dextrose/Water) 200 mls @ 33.333 mls/hr IV .Q6H PRN; Protocol PRN Reason: A.FIB/FLUTTER Amiodarone HCl 300 mg/ (Dextrose/Water) 250 mls @ 25 mls/hr IV .Q10H PRN; Protocol PRN Reason: A.FIB/FLUTTER Albumin Human 250 ml/ IV (Solution) 250 mls @ 250 mls/hr IVPB Q1HR PRN PRN Reason: For Volume Stop: 08/11/19 15:20 Acetaminophen 1,000 mg/ IV (Solution) 100 mls @ 400 mls/hr IVPB Q6H AMINATA Stop: 08/09/19 22:14 Last Admin: 08/09/19 21:29 Dose: 400 mls/hr Documented by: Cefazolin Sodium 2 gm/ Sodium (Chloride) 50 mls @ 100 mls/hr IVPB Q8HR AMINATA Last Admin: 08/09/19 17:18 Dose: 100 mls/hr Documented by: Calcium Gluconate 2 gm/ Sodium (Chloride) 120 mls @ 100 mls/hr IVPB ONCE PRN PRN Reason: Ionized Calcium less than 4.4 Stop: 09/08/19 09:00 Insulin Human Regular 100 unit (/ Sodium Chloride) 101 mls @ 0 mls/hr IV .Q0M AMINATA; Protocol Last Titration: 08/09/19 21:26 Dose: 4.5 units/hr, 4.545 mls/hr Documented by: Nitroglycerin/Dextrose 50 mg/ (IV Solution) 250 mls @ 1.5 mls/hr IV .Q24H AMINATA Last Admin: 08/09/19 15:15 Dose: 5 mcg/min, 1.5 mls/hr Documented by: Propofol 1,000 mg/ IV Solution 100 mls @ 0 mls/hr IV .Q0M AMINATA; Protocol Last Titration: 08/09/19 17:45 Dose: 0 mcg/kg/min, 0 mls/hr Documented by: Sodium Chloride (Saline 0.9%) 1,000 mls @ 50 mls/hr IV .Q20H AMINATA Last Admin: 08/09/19 17:27 Dose: 50 mls/hr Documented by: Ketorolac Tromethamine (Toradol) 15 mg IVP Q6HR AMINATA Stop: 08/13/19 20:15 Last Admin: 08/09/19 20:21 Dose: 15 mg Documented by: Latanoprost (Xalatan 0.005%) 1 drops BOTH EYES HS [facility] Last Admin: 08/09/19 21:36 Dose: 1 drops Documented by: Levothyroxine Sodium (Synthroid) 75 mcg PO DAILY@0630 [facility] Magnesium Hydroxide (Milk Of Magnesia) 2,400 mg PO BID PRN PRN Reason: Constipation Metoprolol Tartrate (Lopressor) 12.5 mg PO BID [facility] Last Admin: 08/09/19 20:41 Dose: 12.5 mg Documented by: Miscellaneous Information (Potassium Per Protocol) 1 each MISCELLANE DAILY PRN; Protocol PRN Reason: Per Protocol Miscellaneous Information (Magnesium Per Protocol) 1 each MISCELLANE DAILY PRN; Protocol PRN Reason: Per Protocol Miscellaneous Information (Phosphorus Per Protocol) 1 each MISCELLANE DAILY PRN; Protocol PRN Reason: Per Protocol Mupirocin (Bactroban Oint) 1 applic NASAL BID [facility] Stop: 08/12/19 21:01 Last Admin: 08/09/19 21:36 Dose: 1 applic Documented by: Nitroglycerin (Nitrostat) 0.4 mg SUBLINGUAL Q5M PRN PRN Reason: Chest Pain Rhopressa ( Netarsudil Mesylate) 0.02% Ophthal Soln 1 drop BOTH EYES QAM [facility] Last Admin: 08/09/19 05:59 Dose: 1 drop Documented by: Ondansetron HCl (Zofran) 4 mg IVP Q6HR PRN PRN Reason: Nausea And Vomiting Oxycodone HCl (Oxyir) 10 mg PO Q4H PRN PRN Reason: Severe Pain Stop: 08/09/19 22:01 Oxycodone HCl (Oxyir) 5 mg PO Q4H PRN PRN Reason: Moderate Pain Stop: 08/09/19 22:01 Pantoprazole Sodium (Protonix) 40 mg IVP DAILY [facility] Senna/Docusate Sodium (Senokot-S) 2 each PO HS [facility] Sodium Chloride (Saline Flush) 10 ml IV BID [facility] Last Admin: 08/09/19 20:41 Dose: 10 ml Documented by: On examination: VITAL SIGNS: Afebrile, 89, 20, 121/58, 99% on oxygen GENERAL APPEARANCE: BMI 22.7, laying in bed, awake. HEENT: Normal external appearance of nose and ear. Oral cavity normal EYES: Pupils equal. Conjunctiva normal. NECK: JVD unable to elicit. Mass not palpable. RESPIRATORY: Respiratory effort increased. Lungs decreased breath sounds-. CARDIOVASCULAR: First and second sounds normal. No edema. ABDOMEN: Soft. Liver and spleen not palpable. No tenderness. No mass palpable. Jacobson catheter present PSYCHIATRY: Unable to assess CHEST wall: 2. Pleural and One mediastinal chest tube. INVESTIGATIONS, reviewed in the clinical context: White count 9.4 hemoglobin 10.5 platelets is 115 Previous investigations: White count 5.5 hemoglobin 13.3 potassium 4.3 creatinine 1.15 Assessment: -Status post coronary bypass -Severe coronary artery disease -Diabetes mellitus type 2 -GERD -Hyperlipidemia -Hypothyroid -Dupuytrens contracture both the hands -Acute postprocedure blood loss anemia as expected from surgery Plan: Patient's currently on insulin, nitroglycerin, Cleviprex drip. Oxygen support. Has a Jacobson catheter. Also received amiodarone DuoNeb's. Also on IV Ancef. Subcu heparin. Accu-Cheks will be followed. Care was discussed with the patient. Thank you Dr. Gibbs,
[2019-08-09 22:05] LABS: Glucose,Whole Blood 157 mg/dL (75-99)
[2019-08-09 23:05] LABS: Glucose,Whole Blood 153 mg/dL (75-99)
[2019-08-09] MEDS: HEPARIN SODIUM,PORCINE 5,000 UNIT/ML 1 ML VIAL SQ SCH (23:33)
[2019-08-09 23:57] LABS: Glucose,Whole Blood 142 mg/dL (75-99)
[2019-08-10 01:14] LABS: Glucose,Whole Blood 115 mg/dL (75-99)
[2019-08-10] MEDS: HYDROcodone/APAP 5-325MG 1 EACH TAB PO PRN ×6 (01:15→21:26)
[2019-08-10 02:02] LABS: Glucose,Whole Blood 107 mg/dL (75-99)
[2019-08-10 03:22] LABS: Glucose,Whole Blood 126 mg/dL (75-99)
[2019-08-10 03:44] LABS: Basophils % (A) 0 %; Eosinophils # (A) 0.1 k/uL (0-0.7); Eosinophils % (A) 1 %; HGB 10.6 gm/dL (13.0-17.5); Lymphocytes # (A) 0.7 k/uL (1.0-4.8); Lymphocytes % (A) 8 %; MCH 29.4 pg (25.0-35.0); MCHC 33.3 g/dL (31.0-37.0); MCV 88.4 fL (80.0-100.0); Mean Platelet Volume 8.3; Monocytes # (A) 0.7 k/uL (0-1.0); Monocytes % (A) 8 %; Neutrophils % (A) 82 %; Platelet Count 109 k/uL (150-450); RBC 3.62 m/uL (4.30-5.90); RDW 13.2 % (11.5-15.5); WBC 8.5 k/uL (3.8-10.6)
[2019-08-10 03:57] LABS: Glucose,Whole Blood 137 mg/dL (75-99)
[2019-08-10 04:02] LABS: Ionized Calcium 4.8 mg/dL (4.5-5.3)
[2019-08-10] MEDS: KETOROLAC 30 MG/ML 1 ML VIAL IVP SCH ×4 (04:03→23:58)
[2019-08-10 04:13] LABS: ALT 17 U/L (4-49); AST 39 U/L (17-59); African American GFR (CKD) >90 (>60 ml/min/1.73 sqM); Albumin 3.3 g/dL (3.5-5.0); Alkaline Phosphatase 25 U/L (38-126); Anion Gap 7 mmol/L; Blood Urea Nitrogen 14 mg/dL (9-20); Calcium 8.2 mg/dL (8.4-10.2); Carbon Dioxide 22 mmol/L (22-30); Chloride 105 mmol/L (98-107); Glucose 133 mg/dL (74-99); Magnesium 1.7 mg/dL (1.6-2.3); Non-African American GFR(CKD) >90 (>60 ml/min/1.73 sqM); Potassium 4.4 mmol/L (3.5-5.1); Sodium 134 mmol/L (137-145); Total Bilirubin 0.4 mg/dL (0.2-1.3); Total Protein 5.4 g/dL (6.3-8.2)
[2019-08-10] MEDS: MAGNESIUM SULFATE-D5W PMX 1 GM in DEXTROSE/WATER 1 100ML.BAG IVPB SCH ×2 (04:42→06:22)
[2019-08-10 05:18] LABS: Glucose,Whole Blood 128 mg/dL (75-99)
[2019-08-10 06:16] LABS: Glucose,Whole Blood 110 mg/dL (75-99)
[2019-08-10] MEDS: LEVOTHYROXINE 75 MCG TAB PO SCH (06:28)
[2019-08-10 07:08] LABS: Glucose,Whole Blood 156 mg/dL (75-99)
[2019-08-10] MEDS: HEPARIN SODIUM,PORCINE 5,000 UNIT/ML 1 ML VIAL SQ SCH ×2 (08:10→16:16)
[2019-08-10] MEDS: ASPIRIN 325 MG TAB PO SCH (08:10)
[2019-08-10] MEDS: CLOPIDOGREL 75 MG TAB PO SCH (08:10)
[2019-08-10] MEDS: ATORVASTATIN 40 MG TAB PO SCH (08:10)
--- NOTE | 2019-08-10 08:10 | XR ---
EXAMINATION TYPE: XR chest 1V portable DATE OF EXAM: 08/10/2019 Comparison: 08/09/2019 Clinical History: 69-year-old male Post Operative Cardiac Surgery Findings: Right IJ [place]-Aniya catheter tip in the proximal right main pulmonary artery. Median sternotomy wires and post-CABG clips the mediastinum. Bilateral chest tubes remain. Previously questioned right apical pneumothorax no longer identified. Some patchy bibasilar atelectasis slightly increased. Impression: Previously questioned trace right apical pneumothorax no longer identified. Bilateral chest tubes rem ain in place. Some patchy bibasilar atelectasis slightly increased after extubation.
[2019-08-10] MEDS: MUPIROCIN 2% OINT 22 GM TUBE NASAL SCH ×2 (08:11→21:29)
[2019-08-10] MEDS: METOPROLOL TARTRATE 25 MG TAB PO SCH ×2 (08:11→21:18)
[2019-08-10] MEDS: LATANOPROST 0.005% OPHTH DROPS 2.5 ML BTL BOTH EYES SCH ×2 (08:12→21:29)
[2019-08-10] MEDS: IPRATROPIUM-ALBUTEROL 3 ML NEB INHALATION SCH ×4 (08:23→18:49)
[2019-08-10 08:35] LABS: Glucose,Whole Blood 161 mg/dL (75-99)
[2019-08-10] MEDS ORDERED: MAGNESIUM HYDROXIDE 2,400 MG/10 ML CUP PO PRN (09:00)
[2019-08-10] MEDS ORDERED: BISACODYL 10 MG SUPP RECTAL PRN (09:00)
[2019-08-10] MEDS ORDERED: METOPROLOL TARTRATE 12.5 MG TAB PO SCH (09:00)
[2019-08-10] MEDS ORDERED: PANTOPRAZOLE 40 MG/10 ML VIAL IVP SCH (09:00)
[2019-08-10 10:02] VITALS: BMI 22.7
[2019-08-10 10:14] LABS: Glucose,Whole Blood 229 mg/dL (75-99)
--- NOTE | 2019-08-10 10:41 | P.PN ---
Subjective Progress Note Date: 08/10/19 Principal diagnosis: This is a 69-year-old gentleman who is followed by Dr. Hunter Ng on an outpatient basis. He is a past medical history significant for [id number] diabetes mellitus type 2, dyslipidemia, hypothyroid, glaucoma, varicose veins to his bilateral lower extremities and family history of coronary artery disease less than 60 years of age. Recently, the patient has had complaints of shortness of breath on exertion. He denies any complaints of chest discomfort, palpitations, fever, diarrhea, orthopnea, or edema. Subsequently he was seen by Dr. Kellogg from cardiology associates and he underwent a nuclear Cardiolite stress test on 07/15/2019 which demonstrated an abnormal myocardial perfusion imaging with reversible mid anterior wall defect and inferior wall defect consistent with stress-induced ischemia possibly in the diagonal branch and the RCA territory. It also showed the left ventricular systolic function to be mildly impaired. During the stress test he did have good exercise tolerance with positive electrocardiographic stress testing with chest discomfort during exercise consistent with stress-induced ischemia. He also underwent a 2-D echocardiogram which demonstrated a normal left ventricular size with normal function, normal diastolic function with an ejection fraction of 55%, mild tricuspid valve regurgitation and mild mitral valve regurgitation. Due to the abnormal stress test and his above-mentioned symptoms he underwent elective cardiac catheterization today which demonstrated a 30% stenosis to his left main coronary artery, a 99% stenosis to his proximal circumflex coronary artery, and an 80% stenosis to his proximal left anterior descending coronary artery. Due to the findings on the heart catheterization a consult was placed to Dr. Drake Gibbs from cardiothoracic surgery for further evaluation and surgical recommendations. POD #1 total arterial double coronary artery bypass grafting using the totally skeletonized right internal mammary artery crossing anteriorly the midline to the left anterior descending coronary artery, the totally skeletonized left internal mammary artery to the first obtuse marginal coronary artery in situ, exclusion of the left atrial appendage using a 35 mm Atriclip. Intraoperative transesophageal echocardiogram, epi-aortic scanning and graft flow measurements using the [employer] system. Postoperative acute blood loss anemia, an expected outcome due to hemodilution a nd cardiopulmonary bypass. On 08/10/2019 the patient was seen in follow-up at his bedside in the intensive care unit. He is sitting up to the bedside chair, and is in no acute distress. He denies any complaints of shortness of breath although he is complaining of surgical type pain to his right mid back. He remained hemodynamically stable and his current cardiac output is 7.2, cardiac index 3.7, PA pressures 23/6 and CVP of 9. He is showing normal sinus rhythm heart rate 82 on his bedside m onitor. Currently his oxygen saturations are 96% on room air and he was successfully extubated within 6 hours postoperatively at 2100 p.m. last night. He is achieving 1000 mL on his incentive spirometry with encouragement. He remains with mediastinal, left and right pleural chest tubes in to low continuous wall suction -20 cm H2O. No air leak is present. The chest tubes continued to drain thin serosanguineous drainage with his mediastinal chest tube draining 330 mL output since surgery, left pleural chest tube 300 mL output since surgery, and his right pleural chest tube draining 350 mL output since surgery. A Jacobson catheter remains in place for accurate I's and O's and he has had 660 mL output of clear yellow urine in the last 8 hours. Laboratory results today show a WBC count 8.5, hemoglobin 10.6, platelets 109, BUN 14 and creatinine 0.85. Objective - Vital Signs Vital signs: Vital Signs Temp 99.3 F 08/10/19 04:00 Pulse 92 08/10/19 08:33 Resp 20 08/10/19 08:00 BP 106/60 08/10/19 07:00 Pulse Ox 94 L 08/10/19 08:23 Intake & Output 08/09/19 08/10/19 08/10/19 18:59 06:59 18:59 Intake Total 379.322 1597.616 91.081 Output Total 3324 1789 95 Balance -2859.255 -446.384 -3.919 Intake: IV 442 504.5 10.5 0.9 200 230 ACETAMINOPHEN IV (For NPO 100 100 ) 1,000 mg In Empty Bag 1 bag @ 400 mls/hr IVPB Q6H [facility] Rx#:[id number] Nitro 16.5 1.5 ceFAZolin 2 gm In Sodium 100 50 Chloride 0.9% 50 ml @ 100 mls/hr IVPB Q8HR [facility] Rx# :[id number] pressure bag 36 108 9 Intake, IV Titration 22.745 838.116 80.581 Amount Clevidipine Butyrate 25 47.700 mg In Empty Bag 1 bag @ 1 MG/HR 2 mls/hr IV .Q24H [facility] Rx#:[id number] Insulin Regular 100 unit 7.263 40.416 5.656 In Sodium Chloride 0.9% 100 ml @ Per Protocol IV .Q0M [facility] Rx#:[id number] Magnesium Sulfate-D5w Pmx 200 1 gm In Dextrose/Water 1 100ml.bag @ 100 mls/hr IVPB Q1H [facility] Rx#: [id number] Nitroglycerin-D5w Pmx 50 24.925 mg In Dextrose/Water 1 250ml.bag @ 5 MCG/MIN 1.5 mls/hr IV .Q24H [facility] Rx#: [id number] Propofol 1,000 mg In 15.482 Empty Bag 1 bag @ Titrate IV .Q0M [facility] Rx#: [id number] Sodium Chloride 0.9% 1, 550 50 000 ml @ 50 mls/hr IV . Q20H [facility] Rx#:[id number] Output: Chest Tube Drainage 434 504 60 Chest Tube Mediastinal 190 140 10 Left Pleural Chest Tube 80 183 40 Right Pleural Chest Tube 164 181 10 Urine 1890 1285 35 Estimated Blood Loss 1000 Other: Voiding Method Indwelling Catheter Indwelling Catheter Indwelling Catheter ABP, PAP, CO, CI - Last Documented Arterial Blood Pressure 106/42 Pulmonary Artery Pressure 23/5 Cardiac Output 7.2 Cardiac Index 3.7 - Exam This is a a pleasant 69-year-old gentleman who is currently sitting up to the bedside chair in intensive care unit. He is in no acute distress. Oxygen saturations are 96% on room air. - Constitutional General appearance: Present: average body habitus, cooperative, no acute distress - EENT Eyes: Present: PERRLA, normal appearance. Absent: scleral icterus ENT: Present: hearing grossly normal, normal oropharynx - Neck Details: Neck is supple, no JVD. Neck: Absent: lymphadenopathy - Respiratory Details: Lung sounds are essentially clear throughout, few scattered crackles to his right lower lobe. Respirations are symmetrical and nonlabored. Oxygen saturation are 96% on room air. Achieving 1000 L on his incentive spirometry. Mediastinal, right and left pleural chest tubes remain in place to low continuous wall suction -20 cm H2O. No air leak is present. Draining thin serosanguineous drainage with 330 mL output of his mediastinal chest tube since surgery, 300 mL output from his left pleural chest tube since surgery, and 350 mL output from his right pleural chest tube since surgery. - Cardiovascular Details: Regular rhythm and rate. S1 and S2 present, negative for S3, gallop or murmur. Sternum is stable. Knee-high CHRISTIANA hose and sequential compression devices in place to his bilateral lower extremities. Heart hugger is in place and he is demonstrating appropriate use. Bedside telemetry showing normal sinus rhythm heart rate 82. No edema present. - Gastrointestinal Gastrointestinal Comment(s): Abdomen is soft, nontender and nondistended. Active bowel sounds present in all 4 abdominal quadrants. No guarding or rigidity. No organomegaly. - Genitourinary Genitourinary Comment(s): Jacobson catheter in place for accurate I&O, draining ear julien urine with 660 mL output in the last 8 hours. - Integumentary Integumentary Comment(s): Skin is warm and dry. No clubbing or cyanosis is present. Midline sternal incision is clean, dry and approximated. Dressing is clean, dry and in place. - Neurologic Neurologic: Present: CNII-XII intact - Musculoskeletal Musculoskeletal: Present: gait normal, generalized weakness, strength equal bilaterally - Psychiatric Psychiatric: Present: A&O x's 3, appropriate affect, intact judgment & insight - Allied health notes Allied health notes reviewed: nursing - Labs CBC & Chem 7: 08/10/19 03:30 08/10/19 03:30 Labs: Abnormal Lab Results - Last 24 Hours (Table) 08/08/19 08/09/19 08/09/19 Range/Units 06:13 08:37 11:31 RBC (4.30-5.90) m/uL Hgb (13.0-17.5) gm/dL Hct (39.0-53.0) % Plt Count (150-450) k/uL Neutrophils # (1.3-7.7) k/uL Lymphocytes # (1.0-4.8) k/uL PT (9.0-12.0) sec INR (<1.2) APTT (22.0-30.0) sec ABG pO2 >420 H 237 H (83-108) mmHg ABG Total CO2 26 H 25 H (19-24) mmol/L ABG O2 Saturation 100.0 H 99.7 H (94-97) % ABG Hematocrit 33 L (34.0-46.0) % ABG Sodium (135-146) mmol/L ABG Potassium 5.5 H (3.4-4.5) mmol/L ABG Ionized Calcium (4.5-5.3) mg/dL ABG Glucose 136 H 159 H (75-99) mg/dL ABG Lactic Acid 1.9 H (0.5-1.6) mmol/L Hemoglobin 12.5 L 10.6 L (13.0-17.5) gm/dL Sodium (137-145) mmol/L Glucose (74-99) mg/dL POC Glucose (mg/dL) (75-99) mg/dL Calcium (8.4-10.2) mg/dL Alkaline Phosphatase (38-126) U/L Total Protein (6.3-8.2) g/dL Albumin (3.5-5.0) g/dL Arterial Blood Potassium 5.5 H (3.4-4.5) mmol/L Arterial Blood Glucose 136 H 159 H (75-99) mg/dL Crossmatch See Detail 08/09/19 08/09/19 08/09/19 Range/Units 12:20 13:11 14:31 RBC (4.30-5.90) m/uL Hgb (13.0-17.5) gm/dL Hct (39.0-53.0) % Plt Count (150-450) k/uL Neutrophils # (1.3-7.7) k/uL Lymphocytes # (1.0-4.8) k/uL PT (9.0-12.0) sec INR (<1.2) APTT (22.0-30.0) sec ABG pO2 408 H 242 H 320 H (83-108) mmHg ABG Total CO2 25 H (19-24) mmol/L ABG O2 Saturation 100.0 H 99.6 H 99.8 H (94-97) % ABG Hematocrit 26 L 26 L 28 L (34.0-46.0) % ABG Sodium 134 L 133 L (135-146) mmol/L ABG Potassium 5.1 H (3.4-4.5) mmol/L ABG Ionized Calcium 4.3 L 4.4 L (4.5-5.3) mg/dL ABG Glucose 141 H 242 H 167 H (75-99) mg/dL ABG Lactic Acid 1.8 H 2.7 H* 2.7 H* (0.5-1.6) mmol/L Hemoglobin 8.4 L 8.5 L 9.1 L (13.0-17.5) gm/dL Sodium (137-145) mmol/L Glucose (74-99) mg/dL POC Glucose (mg/dL) (75-99) mg/dL Calcium (8.4-10.2) mg/dL Alkaline Phosphatase (38-126) U/L Total Protein (6.3-8.2) g/dL Albumin (3.5-5.0) g/dL Arterial Blood Potassium 5.1 H (3.4-4.5) mmol/L Arterial Blood Glucose 141 H 242 H 167 H (75-99) mg/dL Crossmatch 08/09/19 08/09/19 08/09/19 Range/Units 15:15 15:15 15:15 RBC 3.11 L (4.30-5.90) m/uL Hgb 9.1 L D (13.0-17.5) gm/dL Hct 27.4 L (39.0-53.0) % Plt Count 103 L (150-450) k/uL Neutrophils # (1.3-7.7) k/uL Lymphocytes # 0.4 L (1.0-4.8) k/uL PT 13.6 H (9.0-12.0) sec INR 1.4 H (<1.2) APTT 30.6 H (22.0-30.0) sec ABG pO2 (83-108) mmHg ABG Total CO2 (19-24) mmol/L ABG O2 Saturation (94-97) % ABG Hematocrit (34.0-46.0) % ABG Sodium (135-146) mmol/L ABG Potassium (3.4-4.5) mmol/L ABG Ionized Calcium (4.5-5.3) mg/dL ABG Glucose (75-99) mg/dL ABG Lactic Acid (0.5-1.6) mmol/L Hemoglobin (13.0-17.5) gm/dL Sodium (137-145) mmol/L Glucose 130 H (74-99) mg/dL POC Glucose (mg/dL) (75-99) mg/dL Calcium 7.9 L (8.4-10.2) mg/dL Alkaline Phosphatase 20 L (38-126) U/L Total Protein 4.7 L (6.3-8.2) g/dL Albumin 2.8 L (3.5-5.0) g/dL Arterial Blood Potassium (3.4-4.5) mmol/L Arterial Blood Glucose (75-99) mg/dL Crossmatch 08/09/19 08/09/19 08/09/19 Range/Units 15:18 15:49 15:50 RBC (4.30-5.90) m/uL Hgb (13.0-17.5) gm/dL Hct (39.0-53.0) % Plt Count (150-450) k/uL Neutrophils # (1.3-7.7) k/uL Lymphocytes # (1.0-4.8) k/uL PT (9.0-12.0) sec INR (<1.2) APTT (22.0-30.0) sec ABG pO2 >400 H (83-108) mmHg ABG Total CO2 25 H (19-24) mmol/L ABG O2 Saturation 100.0 H (94-97) % ABG Hematocrit (34.0-46.0) % ABG Sodium (135-146) mmol/L ABG Potassium (3.4-4.5) mmol/L ABG Ionized Calcium (4.5-5.3) mg/dL ABG Glucose (75-99) mg/dL ABG Lactic Acid (0.5-1.6) mmol/L Hemoglobin (13.0-17.5) gm/dL Sodium (137-145) mmol/L Glucose (74-99) mg/dL POC Glucose (mg/dL) 140 H 136 H (75-99) mg/dL Calcium (8.4-10.2) mg/dL Alkaline Phosphatase (38-126) U/L Total Protein (6.3-8.2) g/dL Albumin (3.5-5.0) g/dL Arterial Blood Potassium (3.4-4.5) mmol/L Arterial Blood Glucose (75-99) mg/dL Crossmatch 08/09/19 08/09/19 08/09/19 Range/Units 17:09 17:45 17:50 RBC 3.54 L (4.30-5.90) m/uL Hgb 10.5 L (13.0-17.5) gm/dL Hct 30.8 L (39.0-53.0) % Plt Count 115 L (150-450) k/uL Neutrophils # 8.3 H (1.3-7.7) k/uL Lymphocytes # 0.5 L (1.0-4.8) k/uL PT (9.0-12.0) sec INR (<1.2) APTT (22.0-30.0) sec ABG pO2 (83-108) mmHg ABG Total CO2 (19-24) mmol/L ABG O2 Saturation (94-97) % ABG Hematocrit (34.0-46.0) % ABG Sodium (135-146) mmol/L ABG Potassium (3.4-4.5) mmol/L ABG Ionized Calcium (4.5-5.3) mg/dL ABG Glucose (75-99) mg/dL ABG Lactic Acid (0.5-1.6) mmol/L Hemoglobin (13.0-17.5) gm/dL Sodium (137-145) mmol/L Glucose (74-99) mg/dL POC Glucose (mg/dL) 178 H 176 H (75-99) mg/dL Calcium (8.4-10.2) mg/dL Alkaline Phosphatase (38-126) U/L Total Protein (6.3-8.2) g/dL Albumin (3.5-5.0) g/dL Arterial Blood Potassium (3.4-4.5) mmol/L Arterial Blood Glucose (75-99) mg/dL Crossmatch 08/09/19 08/09/19 08/09/19 Range/Units 18:50 20:27 20:40 RBC (4.30-5.90) m/uL Hgb (13.0-17.5) gm/dL Hct (39.0-53.0) % Plt Count (150-450) k/uL Neutrophils # (1.3-7.7) k/uL Lymphocytes # (1.0-4.8) k/uL PT (9.0-12.0) sec INR (<1.2) APTT (22.0-30.0) sec ABG pO2 140 H (83-108) mmHg ABG Total CO2 (19-24) mmol/L ABG O2 Saturation 99.3 H (94-97) % ABG Hematocrit (34.0-46.0) % ABG Sodium (135-146) mmol/L ABG Potassium (3.4-4.5) mmol/L ABG Ionized Calcium (4.5-5.3) mg/dL ABG Glucose (75-99) mg/dL ABG Lactic Acid (0.5-1.6) mmol/L Hemoglobin (13.0-17.5) gm/dL Sodium (137-145) mmol/L Glucose (74-99) mg/dL POC Glucose (mg/dL) 190 H 179 H (75-99) mg/dL Calcium (8.4-10.2) mg/dL Alkaline Phosphatase (38-126) U/L Total Protein (6.3-8.2) g/dL Albumin (3.5-5.0) g/dL Arterial Blood Potassium (3.4-4.5) mmol/L Arterial Blood Glucose (75-99) mg/dL Crossmatch 08/09/19 08/09/19 08/09/19 Range/Units 21:21 22:04 23:04 RBC (4.30-5.90) m/uL Hgb (13.0-17.5) gm/dL Hct (39.0-53.0) % Plt Count (150-450) k/uL Neutrophils # (1.3-7.7) k/uL Lymphocytes # (1.0-4.8) k/uL PT (9.0-12.0) sec INR (<1.2) APTT (22.0-30.0) sec ABG pO2 (83-108) mmHg ABG Total CO2 (19-24) mmol/L ABG O2 Saturation (94-97) % ABG Hematocrit (34.0-46.0) % ABG Sodium (135-146) mmol/L ABG Potassium (3.4-4.5) mmol/L ABG Ionized Calcium (4.5-5.3) mg/dL ABG Glucose (75-99) mg/dL ABG Lactic Acid (0.5-1.6) mmol/L Hemoglobin (13.0-17.5) gm/dL Sodium (137-145) mmol/L Glucose (74-99) mg/dL POC Glucose (mg/dL) 173 H 157 H 153 H (75-99) mg/dL Calcium (8.4-10.2) mg/dL Alkaline Phosphatase (38-126) U/L Total Protein (6.3-8.2) g/dL Albumin (3.5-5.0) g/dL Arterial Blood Potassium (3.4-4.5) mmol/L Arterial Blood Glucose (75-99) mg/dL Crossmatch 08/09/19 08/10/19 08/10/19 Range/Units 23:56 01:01 02:00 RBC (4.30-5.90) m/uL Hgb (13.0-17.5) gm/dL Hct (39.0-53.0) % Plt Count (150-450) k/uL Neutrophils # (1.3-7.7) k/uL Lymphocytes # (1.0-4.8) k/uL PT (9.0-12.0) sec INR (<1.2) APTT (22.0-30.0) sec ABG pO2 (83-108) mmHg ABG Total CO2 (19-24) mmol/L ABG O2 Saturation (94-97) % ABG Hematocrit (34.0-46.0) % ABG Sodium (135-146) mmol/L ABG Potassium (3.4-4.5) mmol/L ABG Ionized Calcium (4.5-5.3) mg/dL ABG Glucose (75-99) mg/dL ABG Lactic Acid (0.5-1.6) mmol/L Hemoglobin (13.0-17.5) gm/dL Sodium (137-145) mmol/L Glucose (74-99) mg/dL POC Glucose (mg/dL) 142 H 115 H 107 H (75-99) mg/dL Calcium (8.4-10.2) mg/dL Alkaline Phosphatase (38-126) U/L Total Protein (6.3-8.2) g/dL Albumin (3.5-5.0) g/dL Arterial Blood Potassium (3.4-4.5) mmol/L Arterial Blood Glucose (75-99) mg/dL Crossmatch 08/10/19 08/10/19 08/10/19 Range/Units 03:20 03:30 03:30 RBC 3.62 L (4.30-5.90) m/uL Hgb 10.6 L (13.0-17.5) gm/dL Hct 32.0 L (39.0-53.0) % Plt Count 109 L (150-450) k/uL Neutrophils # (1.3-7.7) k/uL Lymphocytes # 0.7 L (1.0-4.8) k/uL PT (9.0-12.0) sec INR (<1.2) APTT (22.0-30.0) sec ABG pO2 (83-108) mmHg ABG Total CO2 (19-24) mmol/L ABG O2 Saturation (94-97) % ABG Hematocrit (34.0-46.0) % ABG Sodium (135-146) mmol/L ABG Potassium (3.4-4.5) mmol/L ABG Ionized Calcium (4.5-5.3) mg/dL ABG Glucose (75-99) mg/dL ABG Lactic Acid (0.5-1.6) mmol/L Hemoglobin (13.0-17.5) gm/dL Sodium 134 L (137-145) mmol/L Glucose 133 H (74-99) mg/dL POC Glucose (mg/dL) 126 H (75-99) mg/dL Calcium 8.2 L (8.4-10.2) mg/dL Alkaline Phosphatase 25 L (38-126) U/L Total Protein 5.4 L (6.3-8.2) g/dL Albumin 3.3 L (3.5-5.0) g/dL Arterial Blood Potassium (3.4-4.5) mmol/L Arterial Blood Glucose (75-99) mg/dL Crossmatch 08/10/19 08/10/19 08/10/19 Range/Units 03:55 05:06 06:15 RBC (4.30-5.90) m/uL Hgb (13.0-17.5) gm/dL Hct (39.0-53.0) % Plt Count (150-450) k/uL Neutrophils # (1.3-7.7) k/uL Lymphocytes # (1.0-4.8) k/uL PT (9.0-12.0) sec INR (<1.2) APTT (22.0-30.0) sec ABG pO2 (83-108) mmHg ABG Total CO2 (19-24) mmol/L ABG O2 Saturation (94-97) % ABG Hematocrit (34.0-46.0) % ABG Sodium (135-146) mmol/L ABG Potassium (3.4-4.5) mmol/L ABG Ionized Calcium (4.5-5.3) mg/dL ABG Glucose (75-99) mg/dL ABG Lactic Acid (0.5-1.6) mmol/L Hemoglobin (13.0-17.5) gm/dL Sodium (137-145) mmol/L Glucose (74-99) mg/dL POC Glucose (mg/dL) 137 H 128 H 110 H (75-99) mg/dL Calcium (8.4-10.2) mg/dL Alkaline Phosphatase (38-126) U/L Total Protein (6.3-8.2) g/dL Albumin (3.5-5.0) g/dL Arterial Blood Potassium (3.4-4.5) mmol/L Arterial Blood Glucose (75-99) mg/dL Crossmatch 08/10/19 08/10/19 Range/Units 07:07 08:33 RBC (4.30-5.90) m/uL Hgb (13.0-17.5) gm/dL Hct (39.0-53.0) % Plt Count (150-450) k/uL Neutrophils # (1.3-7.7) k/uL Lymphocytes # (1.0-4.8) k/uL PT (9.0-12.0) sec INR (<1.2) APTT (22.0-30.0) sec ABG pO2 (83-108) mmHg ABG Total CO2 (19-24) mmol/L ABG O2 Saturation (94-97) % ABG Hematocrit (34.0-46.0) % ABG Sodium (135-146) mmol/L ABG Potassium (3.4-4.5) mmol/L ABG Ionized Calcium (4.5-5.3) mg/dL ABG Glucose (75-99) mg/dL ABG Lactic Acid (0.5-1.6) mmol/L Hemoglobin (13.0-17.5) gm/dL Sodium (137-145) mmol/L Glucose (74-99) mg/dL POC Glucose (mg/dL) 156 H 161 H (75-99) mg/dL Calcium (8.4-10.2) mg/dL Alkaline Phosphatase (38-126) U/L Total Protein (6.3-8.2) g/dL Albumin (3.5-5.0) g/dL Arterial Blood Potassium (3.4-4.5) mmol/L Arterial Blood Glucose (75-99) mg/dL Crossmatch - Imaging and Cardiology Chest x-ray: report reviewed, image reviewed Assessment and Plan Assessment: 1. Unstable angina with severe ostial LAD and circumflex coronary artery sten osis. Status post total arterial double coronary artery bypass grafting surgery 2. Overall preserved left ventricular function with an ejection fraction of 55% 3. History of dyslipidemia. 4. Pal-tsaebwb-rwxryzzmk diabetes mellitus. 5. History of Hypothyroid. 6. History of glaucoma 7. Family history of coronary artery disease less than 60 years of age Plan: 1. Continue aspirin, Plavix, statin and beta jyoti. Increase metoprolol tartrate 25 mg by mouth twice a day. 2. Wean oxygen as tolerated to keep sats equal to or greater than 95%. 3. Encourage use of his incentive spirometry 10 times every hour while awake. 4. Remove right pleural and mediastinal chest tubes. Keep left pleural chest tube in place to low continuous wall suction -20 cm H2O and continue to record accurate I&O. 5. Medical management and diabetic management per primary care service. 6. Remove Kensington-Aniya catheter, keep right IJ Cordis in place to continuous CVP monitoring. Keep right radial arterial line in place for another 24 hours. 7. Discontinue Jacobson catheter. Continue to record accurate I's and O's and daily weights. If unable to void 6 hours post-catheter removal please bladder scan. 8. Bronchodilators per pulmonary medicine recommendations. 9. DVT and GI prophylaxis. 10. Continue to monitor daily labs and chest x-rays. Replace electrolytes per protocol. 11. The patient's was updated on his care per phone at the patient's bedside. 12. Increase activity as tolerated. PT/OT is consulted. 13. Pain control per current when necessary regimen. 14. More recommendations to follow based on patient's clinical course. Time with Patient: Greater than 30
[2019-08-10 11:45] LABS: Glucose,Whole Blood 138 mg/dL (75-99)
--- NOTE | 2019-08-10 11:55 | P.PN ---
Subjective Progress Note Date: 08/10/19 Principal diagnosis: Status post CABG for severe ostial LAD and circumflex coronary artery stenosis, postoperative day #1 This is a very pleasant 69-year-old gentleman who follows with Dr. Ng as his primary care provider. He has a history of hyperlipidemia, diabetes mellitus, hypothyroidism. He had recently been having issues with dyspnea on exertion. He is a lifelong nonsmoker. Stress test revealed evidence of ischemia and he was brought in today electively for a cardiac catheterization with Dr. Kellogg. He was found to have moderate disease in the distal left main with critical stenosis involving the ostium of the LAD in the right coronary artery. He was recommended coronary artery bypass grafting surgery which will be performed on 08/09/2019. We're consulted for critical care/mechanical ventilator management. He is seen today in consultation. He is awake and alert in no acute distress. Denies any worsening shortness of breath, cough or congestion. No chest pain currently. He is maintaining O2 saturations in the 90s on room air. He's bradycardic. Slightly hypertensive. White count 5.7. Hemoglobin 14.6. Platelets 221. Glucose 156. Urinalysis clear. He's been initiated on a heparin drip. 0.9 normal saline @ 100 ML's per hour. The patient is seen today 08/07/2019 in follow-up on the selective care unit. He is currently sitting up in a chair at the bedside. Awake and alert in no acute distress. He denies any chest pain. No shortness of breath, cough or congestion. He is maintaining O2 saturations in the upper 90s on room air. He 's afebrile. Hemodynamically stable. His FEV1 value is 95% of predicted. White count 5.0. Hemoglobin 12.8. INR 1.1. Sodium 139. Potassium 4.7. Creatinine 1.10. CoVID 19 screen was negative. He has been practicing with his incentive spirometer and doing well. Chest x-ray revealed no acute pulmonary process. Carotid Dopplers revealed no significant carotid artery stenosis. He remains on a heparin drip. Plan is for surgery on 08/09/2019. Patient was reevaluated today on 08/10/19, patient is status post CABG, postoperative day #1. Patient was on mechanical ventilation post surgery, and within a few hours the patient was extubated uneventfully. Reevaluated today in the ICU, patient is doing well, he is off mechanical ventilation, presently on room air at 94% saturation. He is hemodynamically stable, his IV fluids at KVO. Remains on insulin at 3.5 units per hour. His cardiac output is 7.2 cardiac index is 3.7. Patient has 3 chest tubes one of them is mediastinal draining 330 overnight, right pleural drain to 45, and left pleural drain to 63. Serosanguineous drainage noted in all chest tubes. Patient is doing well with incentive spirometry. And he was extubated exactly at 2100 hrs. Chest x-ray showed bilateral chest tubes, and minimal bibasilar atelectasis. CBC is relatively normal hemoglobin is 10.6. Basic metabolic profile is normal renal profile is normal. Objective - Vital Signs Vital signs: Vital Signs Temp 99.1 F 08/10/19 08:00 Pulse 77 08/10/19 11:00 Resp 19 08/10/19 11:00 BP 106/60 08/10/19 07:00 Pulse Ox 97 08/10/19 11:00 Intake & Output 08/09/19 08/10/19 08/10/19 18:59 06:59 18:59 Intake Total 818.142 6443.616 782.353 Output Total 3324 1789 275 Balance -2859.255 -446.384 507.353 Weight 73.9 kg Intake: IV 442 504.5 194.5 0.9 200 230 110 ACETAMINOPHEN IV (For NPO 100 100 ) 1,000 mg In Empty Bag 1 bag @ 400 mls/hr IVPB Q6H [facility] Rx#:[id number] Nitro 16.5 1.5 ceFAZolin 2 gm In Sodium 100 50 50 Chloride 0.9% 50 ml @ 100 mls/hr IVPB Q8HR [facility] Rx# :[id number] pressure bag 36 108 33 Intake, IV Titration 22.745 838.116 87.853 Amount Clevidipine Butyrate 25 47.700 mg In Empty Bag 1 bag @ 1 MG/HR 2 mls/hr IV .Q24H [facility] Rx#:[id number] Insulin Regular 100 unit 7.263 40.416 12.928 In Sodium Chloride 0.9% 100 ml @ Per Protocol IV .Q0M [facility] Rx#:[id number] Magnesium Sulfate-D5w Pmx 200 1 gm In Dextrose/Water 1 100ml.bag @ 100 mls/hr IVPB Q1H [facility] Rx#: [id number] Nitroglycerin-D5w Pmx 50 24.925 mg In Dextrose/Water 1 250ml.bag @ 5 MCG/MIN 1.5 mls/hr IV .Q24H [facility] Rx#: [id number] Propofol 1,000 mg In 15.482 Empty Bag 1 bag @ Titrate IV .Q0M [facility] Rx#: [id number] Sodium Chloride 0.9% 1, 550 50 000 ml @ 50 mls/hr IV . Q20H [facility] Rx#:[id number] Oral 500 Output: Chest Tube Drainage 434 504 140 Chest Tube Mediastinal 190 140 20 Left Pleural Chest Tube 80 183 100 Right Pleural Chest Tube 164 181 20 Urine 1890 1285 135 Estimated Blood Loss 1000 Other: Voiding Method Indwelling Catheter Indwelling Catheter Indwelling Catheter ABP, PAP, CO, CI - Last Documented Arterial Blood Pressure 135/52 Pulmonary Artery Pressure 29/11 Cardiac Output 4.8 Cardiac Index 2.5 - Exam GENERAL EXAM: Alert, active, very pleasant 69-year-old gentleman, asymptomatic, on Coumadin. O2 saturation is 94%. Head: Atraumatic normocephalic. HEENT: PERRLA, EOMI, no active. Moist mucous membranes. CHEST: No chest wall deformity. LUNGS: Diminished breath sounds at the bases, multiple chest tubes noted and old draining to pleural VACS. CVS: S1 and S2 normal with no audible murmur, regular rhythm. ABDOMEN: No hepatosplenomegaly, normal bowel sounds, no guarding or rigidity. SPINE: No scoliosis or deformity SKIN: No rashes CENTRAL NERVOUS SYSTEM: Alert and oriented 3, no gross focal neurologic deficits EXTREMITIES: There is no peripheral edema. No clubbing, no cyanosis. Peripheral pulses are intact. Psychiatric: Normal mood, affect and normal mental status examination - Labs CBC & Chem 7: 08/10/19 03:30 08/10/19 03:30 Labs: Abnormal Lab Results - Last 24 Hours (Table) 08/08/19 08/09/19 08/09/19 Range/Units 06:13 08:37 11:31 RBC (4.30-5.90) m/uL Hgb (13.0-17.5) gm/dL Hct (39.0-53.0) % Plt Count (150-450) k/uL Neutrophils # (1.3-7.7) k/uL Lymphocytes # (1.0-4.8) k/uL PT (9.0-12.0) sec INR (<1.2) APTT (22.0-30.0) sec ABG pO2 >420 H 237 H (83-108) mmHg ABG Total CO2 26 H 25 H (19-24) mmol/L ABG O2 Saturation 100.0 H 99.7 H (94-97) % ABG Hematocrit 33 L (34.0-46.0) % ABG Sodium (135-146) mmol/L ABG Potassium 5.5 H (3.4-4.5) mmol/L ABG Ionized Calcium (4.5-5.3) mg/dL ABG Glucose 136 H 159 H (75-99) mg/dL ABG Lactic Acid 1.9 H (0.5-1.6) mmol/L Hemoglobin 12.5 L 10.6 L (13.0-17.5) gm/dL Sodium (137-145) mmol/L Glucose (74-99) mg/dL POC Glucose (mg/dL) (75-99) mg/dL Calcium (8.4-10.2) mg/dL Alkaline Phosphatase (38-126) U/L Total Protein (6.3-8.2) g/dL Albumin (3.5-5.0) g/dL Arterial Blood Potassium 5.5 H (3.4-4.5) mmol/L Arterial Blood Glucose 136 H 159 H (75-99) mg/dL Crossmatch See Detail 08/09/19 08/09/19 08/09/19 Range/Units 12:20 13:11 14:31 RBC (4.30-5.90) m/uL Hgb (13.0-17.5) gm/dL Hct (39.0-53.0) % Plt Count (150-450) k/uL Neutrophils # (1.3-7.7) k/uL Lymphocytes # (1.0-4.8) k/uL PT (9.0-12.0) sec INR (<1.2) APTT (22.0-30.0) sec ABG pO2 408 H 242 H 320 H (83-108) mmHg ABG Total CO2 25 H (19-24) mmol/L ABG O2 Saturation 100.0 H 99.6 H 99.8 H (94-97) % ABG Hematocrit 26 L 26 L 28 L (34.0-46.0) % ABG Sodium 134 L 133 L (135-146) mmol/L ABG Potassium 5.1 H (3.4-4.5) mmol/L ABG Ionized Calcium 4.3 L 4.4 L (4.5-5.3) mg/dL ABG Glucose 141 H 242 H 167 H (75-99) mg/dL ABG Lactic Acid 1.8 H 2.7 H* 2.7 H* (0.5-1.6) mmol/L Hemoglobin 8.4 L 8.5 L 9.1 L (13.0-17.5) gm/dL Sodium (137-145) mmol/L Glucose (74-99) mg/dL POC Glucose (mg/dL) (75-99) mg/dL Calcium (8.4-10.2) mg/dL Alkaline Phosphatase (38-126) U/L Total Protein (6.3-8.2) g/dL Albumin (3.5-5.0) g/dL Arterial Blood Potassium 5.1 H (3.4-4.5) mmol/L Arterial Blood Glucose 141 H 242 H 167 H (75-99) mg/dL Crossmatch 08/09/19 08/09/19 08/09/19 Range/Units 15:15 15:15 15:15 RBC 3.11 L (4.30-5.90) m/uL Hgb 9.1 L D (13.0-17.5) gm/dL Hct 27.4 L (39.0-53.0) % Plt Count 103 L (150-450) k/uL Neutrophils # (1.3-7.7) k/uL Lymphocytes # 0.4 L (1.0-4.8) k/uL PT 13.6 H (9.0-12.0) sec INR 1.4 H (<1.2) APTT 30.6 H (22.0-30.0) sec ABG pO2 (83-108) mmHg ABG Total CO2 (19-24) mmol/L ABG O2 Saturation (94-97) % ABG Hematocrit (34.0-46.0) % ABG Sodium (135-146) mmol/L ABG Potassium (3.4-4.5) mmol/L ABG Ionized Calcium (4.5-5.3) mg/dL ABG Glucose (75-99) mg/dL ABG Lactic Acid (0.5-1.6) mmol/L Hemoglobin (13.0-17.5) gm/dL Sodium (137-145) mmol/L Glucose 130 H (74-99) mg/dL POC Glucose (mg/dL) (75-99) mg/dL Calcium 7.9 L (8.4-10.2) mg/dL Alkaline Phosphatase 20 L (38-126) U/L Total Protein 4.7 L (6.3-8.2) g/dL Albumin 2.8 L (3.5-5.0) g/dL Arterial Blood Potassium (3.4-4.5) mmol/L Arterial Blood Glucose (75-99) mg/dL Crossmatch 08/09/19 08/09/19 08/09/19 Range/Units 15:18 15:49 15:50 RBC (4.30-5.90) m/uL Hgb (13.0-17.5) gm/dL Hct (39.0-53.0) % Plt Count (150-450) k/uL Neutrophils # (1.3-7.7) k/uL Lymphocytes # (1.0-4.8) k/uL PT (9.0-12.0) sec INR (<1.2) APTT (22.0-30.0) sec ABG pO2 >400 H (83-108) mmHg ABG Total CO2 25 H (19-24) mmol/L ABG O2 Saturation 100.0 H (94-97) % ABG Hematocrit (34.0-46.0) % ABG Sodium (135-146) mmol/L ABG Potassium (3.4-4.5) mmol/L ABG Ionized Calcium (4.5-5.3) mg/dL ABG Glucose (75-99) mg/dL ABG Lactic Acid (0.5-1.6) mmol/L Hemoglobin (13.0-17.5) gm/dL Sodium (137-145) mmol/L Glucose (74-99) mg/dL POC Glucose (mg/dL) 140 H 136 H (75-99) mg/dL Calcium (8.4-10.2) mg/dL Alkaline Phosphatase (38-126) U/L Total Protein (6.3-8.2) g/dL Albumin (3.5-5.0) g/dL Arterial Blood Potassium (3.4-4.5) mmol/L Arterial Blood Glucose (75-99) mg/dL Crossmatch 08/09/19 08/09/19 08/09/19 Range/Units 17:09 17:45 17:50 RBC 3.54 L (4.30-5.90) m/uL Hgb 10.5 L (13.0-17.5) gm/dL Hct 30.8 L (39.0-53.0) % Plt Count 115 L (150-450) k/uL Neutrophils # 8.3 H (1.3-7.7) k/uL Lymphocytes # 0.5 L (1.0-4.8) k/uL PT (9.0-12.0) sec INR (<1.2) APTT (22.0-30.0) sec ABG pO2 (83-108) mmHg ABG Total CO2 (19-24) mmol/L ABG O2 Saturation (94-97) % ABG Hematocrit (34.0-46.0) % ABG Sodium (135-146) mmol/L ABG Potassium (3.4-4.5) mmol/L ABG Ionized Calcium (4.5-5.3) mg/dL ABG Glucose (75-99) mg/dL ABG Lactic Acid (0.5-1.6) mmol/L Hemoglobin (13.0-17.5) gm/dL Sodium (137-145) mmol/L Glucose (74-99) mg/dL POC Glucose (mg/dL) 178 H 176 H (75-99) mg/dL Calcium (8.4-10.2) mg/dL Alkaline Phosphatase (38-126) U/L Total Protein (6.3-8.2) g/dL Albumin (3.5-5.0) g/dL Arterial Blood Potassium (3.4-4.5) mmol/L Arterial Blood Glucose (75-99) mg/dL Crossmatch 08/09/19 08/09/19 08/09/19 Range/Units 18:50 20:27 20:40 RBC (4.30-5.90) m/uL Hgb (13.0-17.5) gm/dL Hct (39.0-53.0) % Plt Count (150-450) k/uL Neutrophils # (1.3-7.7) k/uL Lymphocytes # (1.0-4.8) k/uL PT (9.0-12.0) sec INR (<1.2) APTT (22.0-30.0) sec ABG pO2 140 H (83-108) mmHg ABG Total CO2 (19-24) mmol/L ABG O2 Saturation 99.3 H (94-97) % ABG Hematocrit (34.0-46.0) % ABG Sodium (135-146) mmol/L ABG Potassium (3.4-4.5) mmol/L ABG Ionized Calcium (4.5-5.3) mg/dL ABG Glucose (75-99) mg/dL ABG Lactic Acid (0.5-1.6) mmol/L Hemoglobin (13.0-17.5) gm/dL Sodium (137-145) mmol/L Glucose (74-99) mg/dL POC Glucose (mg/dL) 190 H 179 H (75-99) mg/dL Calcium (8.4-10.2) mg/dL Alkaline Phosphatase (38-126) U/L Total Protein (6.3-8.2) g/dL Albumin (3.5-5.0) g/dL Arterial Blood Potassium (3.4-4.5) mmol/L Arterial Blood Glucose (75-99) mg/dL Crossmatch 08/09/19 08/09/19 08/09/19 Range/Units 21:21 22:04 23:04 RBC (4.30-5.90) m/uL Hgb (13.0-17.5) gm/dL Hct (39.0-53.0) % Plt Count (150-450) k/uL Neutrophils # (1.3-7.7) k/uL Lymphocytes # (1.0-4.8) k/uL PT (9.0-12.0) sec INR (<1.2) APTT (22.0-30.0) sec ABG pO2 (83-108) mmHg ABG Total CO2 (19-24) mmol/L ABG O2 Saturation (94-97) % ABG Hematocrit (34.0-46.0) % ABG Sodium (135-146) mmol/L ABG Potassium (3.4-4.5) mmol/L ABG Ionized Calcium (4.5-5.3) mg/dL ABG Glucose (75-99) mg/dL ABG Lactic Acid (0.5-1.6) mmol/L Hemoglobin (13.0-17.5) gm/dL Sodium (137-145) mmol/L Glucose (74-99) mg/dL POC Glucose (mg/dL) 173 H 157 H 153 H (75-99) mg/dL Calcium (8.4-10.2) mg/dL Alkaline Phosphatase (38-126) U/L Total Protein (6.3-8.2) g/dL Albumin (3.5-5.0) g/dL Arterial Blood Potassium (3.4-4.5) mmol/L Arterial Blood Glucose (75-99) mg/dL Crossmatch 08/09/19 08/10/19 08/10/19 Range/Units 23:56 01:01 02:00 RBC (4.30-5.90) m/uL Hgb (13.0-17.5) gm/dL Hct (39.0-53.0) % Plt Count (150-450) k/uL Neutrophils # (1.3-7.7) k/uL Lymphocytes # (1.0-4.8) k/uL PT (9.0-12.0) sec INR (<1.2) APTT (22.0-30.0) sec ABG pO2 (83-108) mmHg ABG Total CO2 (19-24) mmol/L ABG O2 Saturation (94-97) % ABG Hematocrit (34.0-46.0) % ABG Sodium (135-146) mmol/L ABG Potassium (3.4-4.5) mmol/L ABG Ionized Calcium (4.5-5.3) mg/dL ABG Glucose (75-99) mg/dL ABG Lactic Acid (0.5-1.6) mmol/L Hemoglobin (13.0-17.5) gm/dL Sodium (137-145) mmol/L Glucose (74-99) mg/dL POC Glucose (mg/dL) 142 H 115 H 107 H (75-99) mg/dL Calcium (8.4-10.2) mg/dL Alkaline Phosphatase (38-126) U/L Total Protein (6.3-8.2) g/dL Albumin (3.5-5.0) g/dL Arterial Blood Potassium (3.4-4.5) mmol/L Arterial Blood Glucose (75-99) mg/dL Crossmatch 08/10/19 08/10/19 08/10/19 Range/Units 03:20 03:30 03:30 RBC 3.62 L (4.30-5.90) m/uL Hgb 10.6 L (13.0-17.5) gm/dL Hct 32.0 L (39.0-53.0) % Plt Count 109 L (150-450) k/uL Neutrophils # (1.3-7.7) k/uL Lymphocytes # 0.7 L (1.0-4.8) k/uL PT (9.0-12.0) sec INR (<1.2) APTT (22.0-30.0) sec ABG pO2 (83-108) mmHg ABG Total CO2 (19-24) mmol/L ABG O2 Saturation (94-97) % ABG Hematocrit (34.0-46.0) % ABG Sodium (135-146) mmol/L ABG Potassium (3.4-4.5) mmol/L ABG Ionized Calcium (4.5-5.3) mg/dL ABG Glucose (75-99) mg/dL ABG Lactic Acid (0.5-1.6) mmol/L Hemoglobin (13.0-17.5) gm/dL Sodium 134 L (137-145) mmol/L Glucose 133 H (74-99) mg/dL POC Glucose (mg/dL) 126 H (75-99) mg/dL Calcium 8.2 L (8.4-10.2) mg/dL Alkaline Phosphatase 25 L (38-126) U/L Total Protein 5.4 L (6.3-8.2) g/dL Albumin 3.3 L (3.5-5.0) g/dL Arterial Blood Potassium (3.4-4.5) mmol/L Arterial Blood Glucose (75-99) mg/dL Crossmatch 08/10/19 08/10/19 08/10/19 Range/Units 03:55 05:06 06:15 RBC (4.30-5.90) m/uL Hgb (13.0-17.5) gm/dL Hct (39.0-53.0) % Plt Count (150-450) k/uL Neutrophils # (1.3-7.7) k/uL Lymphocytes # (1.0-4.8) k/uL PT (9.0-12.0) sec INR (<1.2) APTT (22.0-30.0) sec ABG pO2 (83-108) mmHg ABG Total CO2 (19-24) mmol/L ABG O2 Saturation (94-97) % ABG Hematocrit (34.0-46.0) % ABG Sodium (135-146) mmol/L ABG Potassium (3.4-4.5) mmol/L ABG Ionized Calcium (4.5-5.3) mg/dL ABG Glucose (75-99) mg/dL ABG Lactic Acid (0.5-1.6) mmol/L Hemoglobin (13.0-17.5) gm/dL Sodium (137-145) mmol/L Glucose (74-99) mg/dL POC Glucose (mg/dL) 137 H 128 H 110 H (75-99) mg/dL Calcium (8.4-10.2) mg/dL Alkaline Phosphatase (38-126) U/L Total Protein (6.3-8.2) g/dL Albumin (3.5-5.0) g/dL Arterial Blood Potassium (3.4-4.5) mmol/L Arterial Blood Glucose (75-99) mg/dL Crossmatch 08/10/19 08/10/19 08/10/19 Range/Units 07:07 08:33 10:13 RBC (4.30-5.90) m/uL Hgb (13.0-17.5) gm/dL Hct (39.0-53.0) % Plt Count (150-450) k/uL Neutrophils # (1.3-7.7) k/uL Lymphocytes # (1.0-4.8) k/uL PT (9.0-12.0) sec INR (<1.2) APTT (22.0-30.0) sec ABG pO2 (83-108) mmHg ABG Total CO2 (19-24) mmol/L ABG O2 Saturation (94-97) % ABG Hematocrit (34.0-46.0) % ABG Sodium (135-146) mmol/L ABG Potassium (3.4-4.5) mmol/L ABG Ionized Calcium (4.5-5.3) mg/dL ABG Glucose (75-99) mg/dL ABG Lactic Acid (0.5-1.6) mmol/L Hemoglobin (13.0-17.5) gm/dL Sodium (137-145) mmol/L Glucose (74-99) mg/dL POC Glucose (mg/dL) 156 H 161 H 229 H (75-99) mg/dL Calcium (8.4-10.2) mg/dL Alkaline Phosphatase (38-126) U/L Total Protein (6.3-8.2) g/dL Albumin (3.5-5.0) g/dL Arterial Blood Potassium (3.4-4.5) mmol/L Arterial Blood Glucose (75-99) mg/dL Crossmatch 08/10/19 Range/Units 11:44 RBC (4.30-5.90) m/uL Hgb (13.0-17.5) gm/dL Hct (39.0-53.0) % Plt Count (150-450) k/uL Neutrophils # (1.3-7.7) k/uL Lymphocytes # (1.0-4.8) k/uL PT (9.0-12.0) sec INR (<1.2) APTT (22.0-30.0) sec ABG pO2 (83-108) mmHg ABG Total CO2 (19-24) mmol/L ABG O2 Saturation (94-97) % ABG Hematocrit (34.0-46.0) % ABG Sodium (135-146) mmol/L ABG Potassium (3.4-4.5) mmol/L ABG Ionized Calcium (4.5-5.3) mg/dL ABG Glucose (75-99) mg/dL ABG Lactic Acid (0.5-1.6) mmol/L Hemoglobin (13.0-17.5) gm/dL Sodium (137-145) mmol/L Glucose (74-99) mg/dL POC Glucose (mg/dL) 138 H (75-99) mg/dL Calcium (8.4-10.2) mg/dL Alkaline Phosphatase (38-126) U/L Total Protein (6.3-8.2) g/dL Albumin (3.5-5.0) g/dL Arterial Blood Potassium (3.4-4.5) mmol/L Arterial Blood Glucose (75-99) mg/dL Crossmatch Assessment and Plan Assessment: Impression: Status post CABG, double coronary artery bypass grafting for severe ostial LAD and circumflex coronary artery disease. Postoperative day #1. Unstable angina on his initial presentation. History of dyslipidemia. History of type 2 diabetes. History of hypothyroidism. History of glaucoma. History of nephrolithiasis. Lifelong nonsmoker. Chronic dyspnea on exertion secondary to underlying coronary artery disease. Recommendation: Continue present postoperative measures including beta jyoti statin Plavix aspirin. Continue incentive spirometer. Early ambulation. Discontinue unnecessary lines catheters and chest tubes as we go along. Continue insulin drip for now. And adjust accordingly. Continue bronchodilators. Continue GI and DVT prophylaxis. Continue to monitor daily labs including CBC, and electrolytes. Continue daily chest x-rays. Pain control. We'll continue to follow. Time with Patient: Less than 30
[2019-08-10 14:06] LABS: Glucose,Whole Blood 199 mg/dL (75-99)
[2019-08-10] MEDS: NETARSUDIL MESYLATE BOTH EYES SCH (14:58)
[2019-08-10] MEDS: SODIUM CHLORIDE 0.9% 1,000 ML IV SCH (14:59)
[2019-08-10] MEDS: INSULIN REGULAR 100 UNIT in SODIUM CHLORIDE 0.9% 100 ML IV SCH (16:21)
[2019-08-10 16:22] LABS: Glucose,Whole Blood 246 mg/dL (75-99)
[2019-08-10 17:02] LABS: Glucose,Whole Blood 242 mg/dL (75-99)
--- NOTE | 2019-08-10 17:19 | P.PN ---
Progress Note - Text Progress Note Date: 08/10/19 Presenting complaint: Chest pain Interval history: This is a pleasant 69-year-old patient who had been having dyspnea on exertion underwent a nuclear study that showed reversible findings. Cardiac catheterization showed significant coronary artery disease. Status post coronary bypass on August 08.. Today-ICU: Sitting upon a chair. 2 chest tubes are being taken out. Patient did tolerate some diet. Using his incentive spirometry. Communicating. Awake Review of systems: Was done for constitutional, cardiovascular, GI, pulmonary. relevant finding as above Active Medications Hydrocodone Bitart/Acetaminophen (Rincon 5-325) 2 each PO Q4HR PRN PRN Reason: Severe Pain Last Admin: 08/10/19 16:16 Dose: 2 each Documented by: Hydrocodone Bitart/Acetaminophen (Rincon 5-325) 1 each PO Q4HR PRN PRN Reason: Moderate Pain Last Admin: 08/10/19 06:28 Dose: 1 each Documented by: Albuterol/Ipratropium (Duoneb 0.5 Mg-3 Mg/3 Ml Soln) 3 ml INHALATION RT-Q2H PRN PRN Reason: Shortness Of Breath Or Wheezing Albuterol/Ipratropium (Duoneb 0.5 Mg-3 Mg/3 Ml Soln) 3 ml INHALATION RT-QID [facility] Last Admin: 08/10/19 15:10 Dose: 3 ml Documented by: Aspirin (Aspirin) 325 mg PO DAILY [facility] Last Admin: 08/10/19 08:10 Dose: 325 mg Documented by: Atorvastatin Calcium (Lipitor) 40 mg PO DAILY [facility] Last Admin: 08/10/19 08:10 Dose: 40 mg Documented by: Benzocaine/Menthol (Cepacol Lozenge) 1 each MUCOUS MEM Q2H PRN PRN Reason: Sore Throat Bisacodyl (Dulcolax) 10 mg RECTAL DAILY PRN PRN Reason: Constipation Clopidogrel Bisulfate (Plavix) 75 mg PO DAILY [facility] Last Admin: 08/10/19 08:10 Dose: 75 mg Documented by: Heparin Sodium (Porcine) (Heparin) 5,000 unit SQ Q8HR [facility] Last Admin: 08/10/19 16:16 Dose: 5,000 unit Documented by: Clevidipine 25 mg/ IV Solution 50 mls @ 2 mls/hr IV .Q24H [facility]; Protocol Last Titration: 08/10/19 04:33 Dose: 0 mg/hr, 0 mls/hr Documented by: Amiodarone HCl 150 mg/ (Dextrose/Water) 103 mls @ 618 mls/hr IV .Q10M PRN; Protocol PRN Reason: A.FIB/FLUTTER Amiodarone HCl 360 mg/ (Dextrose/Water) 200 mls @ 33.333 mls/hr IV .Q6H PRN; Protocol PRN Reason: A.FIB/FLUTTER Amiodarone HCl 300 mg/ (Dextrose/Water) 250 mls @ 25 mls/hr IV .Q10H PRN; Protocol PRN Reason: A.FIB/FLUTTER Albumin Human 250 ml/ IV (Solution) 250 mls @ 250 mls/hr IVPB Q1HR PRN PRN Reason: For Volume Stop: 08/11/19 15:20 Cefazolin Sodium 2 gm/ Sodium (Chloride) 50 mls @ 100 mls/hr IVPB Q8HR [facility] Last Admin: 08/10/19 16:15 Dose: 100 mls/hr Documented by: Calcium Gluconate 2 gm/ Sodium (Chloride) 120 mls @ 100 mls/hr IVPB ONCE PRN PRN Reason: Ionized Calcium less than 4.4 Stop: 09/08/19 09:00 Insulin Human Regular 100 unit (/ Sodium Chloride) 101 mls @ 0 mls/hr IV .Q0M AMINATA; Protocol Last Titration: 08/10/19 17:03 Dose: 8.5 units/hr, 8.585 mls/hr Documented by: Propofol 1,000 mg/ IV Solution 100 mls @ 0 mls/hr IV .Q0M AMINATA; Protocol Last Titration: 08/09/19 17:45 Dose: 0 mcg/kg/min, 0 mls/hr Documented by: Sodium Chloride (Saline 0.9%) 1,000 mls @ 50 mls/hr IV .Q20H [facility] Last Admin: 08/10/19 14:59 Dose: Not Given Documented by: Ketorolac Tromethamine (Toradol) 15 mg IVP Q6HR [facility] Stop: 08/13/19 20:15 Last Admin: 08/10/19 10:04 Dose: 15 mg Documented by: Latanoprost (Xalatan 0.005%) 1 drops [facility] Last Admin: 08/09/19 21:36 Dose: 1 drops Documented by: Levothyroxine Sodium (Synthroid) 75 mcg PO DAILY@0630 [facility] Last Admin: 08/10/19 06:28 Dose: 75 mcg Documented by: Magnesium Hydroxide (Milk Of Magnesia) 2,400 mg PO BID PRN PRN Reason: Constipation Metoprolol Tartrate (Lopressor) 25 mg PO BID [facility] Last Admin: 08/10/19 08:11 Dose: 25 mg Documented by: Miscellaneous Information (Potassium Per Protocol) 1 each MISCELLANE DAILY PRN; Protocol PRN Reason: Per Protocol Miscellaneous Information (Magnesium Per Protocol) 1 each MISCELLANE DAILY PRN; Protocol PRN Reason: Per Protocol Miscellaneous Information (Phosphorus Per Protocol) 1 each MISCELLANE DAILY PRN; Protocol PRN Reason: Per Protocol Mupirocin (Bactroban Oint) 1 applic NASAL BID [facility] Stop: 08/12/19 21:01 Last Admin: 08/10/19 08:11 Dose: 1 applic Documented by: Nitroglycerin (Nitrostat) 0.4 mg SUBLINGUAL Q5M PRN PRN Reason: Chest Pain Rhopressa ( Netarsudil Mesylate) 0.02% Ophthal Soln 1 drop BOTH EYES QAM [facility] Last Admin: 08/10/19 14:58 Dose: Not Given Documented by: Ondansetron HCl (Zofran) 4 mg IVP Q6HR PRN PRN Reason: Nausea And Vomiting Pantoprazole Sodium (Protonix) 40 mg IVP DAILY [facility] Last Admin: 08/10/19 08:10 Dose: 40 mg Documented by: Senna/Docusate Sodium (Senokot-S) 2 each PO HS [facility] Sodium Chloride (Saline Flush) 10 ml IV BID [facility] Last Admin: 08/10/19 10:15 Dose: Not Given Documented by: On examination: VITAL SIGNS: 98.6, 93, 23, 135/49, 94% room air GENERAL APPEARANCE: BMI 22.7, sitting up in a chair, awake. HEENT: Normal external appearance of nose and ear. Oral cavity normal EYES: Pupils equal. Conjunctiva normal. NECK: JVD unable to assess. Mass not palpable. RESPIRATORY: Respiratory effort increased. Lungs decreased breath sounds-. CARDIOVASCULAR: First and second sounds normal. No edema. ABDOMEN: Soft. Liver and spleen not palpable. No tenderness. No mass palpable. Jacobson catheter present PSYCHIATRY: AO 3, mood affect normal CHEST wall: 1 chest tube. INVESTIGATIONS, reviewed in the clinical context: White count 8.5 hemoglobin 10.6 platelets 109 creatinine 0.85 Previous investigations: White count 5.5 hemoglobin 13.3 potassium 4.3 creatinine 1.15 Assessment: -Status post coronary bypass -Severe coronary artery disease -Diabetes mellitus type 2 -GERD -Hyperlipidemia -Hypothyroid -Dupuytrens contracture both the hands -Acute postprocedure blood loss anemia as expected from surgery Plan: Continue current medication treatment plan. On insulin drip. Follow Accu- Cheks. Discussed with patient. Thank you Dr. Gibbs,
[2019-08-10 18:10] LABS: Glucose,Whole Blood 220 mg/dL (75-99)
[2019-08-10 18:59] LABS: Glucose,Whole Blood 206 mg/dL (75-99)
[2019-08-10 19:57] LABS: Glucose,Whole Blood 212 mg/dL (75-99)
[2019-08-10 21:01] LABS: Glucose,Whole Blood 213 mg/dL (75-99)
[2019-08-10] MEDS: SENNOSIDES-DOCUSATE SODIUM 1 EACH TAB PO SCH ×2 (21:21→21:26)
[2019-08-10] MEDS: CLEVIDIPINE BUTYRATE 25 MG in EMPTY BAG 1 BAG IV SCH (21:33)
[2019-08-10 22:05] LABS: Glucose,Whole Blood 175 mg/dL (75-99)
[2019-08-10 23:17] LABS: Glucose,Whole Blood 110 mg/dL (75-99)
[2019-08-10 23:17] LABS: Glucose,Whole Blood 115 mg/dL (75-99)
[2019-08-11] MEDS: HEPARIN SODIUM,PORCINE 5,000 UNIT/ML 1 ML VIAL SQ SCH ×4 (00:02→23:34)
[2019-08-11 00:13] LABS: Glucose,Whole Blood 128 mg/dL (75-99)
[2019-08-11 01:11] LABS: Glucose,Whole Blood 130 mg/dL (75-99)
[2019-08-11 01:56] LABS: Glucose,Whole Blood 130 mg/dL (75-99)
[2019-08-11 03:00] LABS: Glucose,Whole Blood 101 mg/dL (75-99)
[2019-08-11] MEDS: HYDROcodone/APAP 5-325MG 1 EACH TAB PO PRN ×2 (03:43→08:25)
[2019-08-11 03:51] LABS: Glucose,Whole Blood 129 mg/dL (75-99)
[2019-08-11] MEDS: INSULIN REGULAR 100 UNIT in SODIUM CHLORIDE 0.9% 100 ML IV SCH (03:53)
[2019-08-11 04:58] LABS: Glucose,Whole Blood 132 mg/dL (75-99)
[2019-08-11 05:08] LABS: Basophils % (A) 0 %; Eosinophils # (A) 0.2 k/uL (0-0.7); Eosinophils % (A) 3 %; HCT 30.5 % (39.0-53.0); HGB 10.2 gm/dL (13.0-17.5); Lymphocytes # (A) 0.7 k/uL (1.0-4.8); Lymphocytes % (A) 7 %; MCH 29.8 pg (25.0-35.0); MCHC 33.4 g/dL (31.0-37.0); MCV 89.3 fL (80.0-100.0); Mean Platelet Volume 8.9; Monocytes # (A) 0.5 k/uL (0-1.0); Monocytes % (A) 6 %; Neutrophils # (A) 7.4 k/uL (1.3-7.7); Neutrophils % (A) 82 %; Platelet Count 106 k/uL (150-450); RBC 3.42 m/uL (4.30-5.90); RDW 13.4 % (11.5-15.5)
[2019-08-11 05:27] LABS: Albumin 3.1 g/dL (3.5-5.0); Calcium 8.6 mg/dL (8.4-10.2); Potassium 4.2 mmol/L (3.5-5.1); Total Bilirubin 0.4 mg/dL (0.2-1.3); Total Protein 5.4 g/dL (6.3-8.2)
[2019-08-11 06:14] LABS: Glucose,Whole Blood 119 mg/dL (75-99)
[2019-08-11] MEDS: LEVOTHYROXINE 75 MCG TAB PO SCH (06:26)
[2019-08-11] MEDS: KETOROLAC 30 MG/ML 1 ML VIAL IVP SCH ×4 (06:26→23:34)
[2019-08-11 07:02] LABS: Glucose,Whole Blood 112 mg/dL (75-99)
--- NOTE | 2019-08-11 07:15 | XR ---
EXAMINATION TYPE: XR chest 1V portable DATE OF EXAM: 08/11/2019 COMPARISON: 08/02/2019 INDICATION: Postop cardiac surgery TECHNIQUE: Single frontal view of the chest is obtained. FINDINGS: The heart size is normal. The pulmonary vasculature is normal. Minimal right pleural effusion is present. Left-sided chest tube remains present. No pneumothorax is evident. Catheter sheath is present on the right. [place]-Aniya catheter is been removed. Right-sided sathya st tube is been removed. IMPRESSION: 1. Small right pleural effusion. 2. Left-sided chest tube and right central venous catheter sheath remains present.
[2019-08-11] MEDS: IPRATROPIUM-ALBUTEROL 3 ML NEB INHALATION SCH ×4 (08:05→19:42)
[2019-08-11] MEDS: ATORVASTATIN 40 MG TAB PO SCH (08:19)
[2019-08-11] MEDS: CLOPIDOGREL 75 MG TAB PO SCH (08:19)
[2019-08-11] MEDS: PANTOPRAZOLE 40 MG TABLET PO SCH (08:19)
[2019-08-11] MEDS: METOPROLOL TARTRATE 50 MG TAB PO SCH ×2 (08:19→20:05)
[2019-08-11] MEDS: ASPIRIN 325 MG TAB PO SCH (08:19)
[2019-08-11] MEDS: NETARSUDIL MESYLATE BOTH EYES SCH (08:20)
[2019-08-11] MEDS: MUPIROCIN 2% OINT 22 GM TUBE NASAL SCH (08:20)
[2019-08-11] MEDS: SODIUM CHLORIDE 0.9% 1,000 ML IV SCH (08:21)
[2019-08-11 09:03] LABS: Glucose,Whole Blood 283 mg/dL (75-99)
--- NOTE | 2019-08-11 09:14 | P.PN ---
Subjective Progress Note Date: 08/11/19 Principal diagnosis: This is a 69-year-old gentleman who is followed by Dr. Hunter Ng on an outpatient basis. He is a past medical history significant for fpr-xdrkasy-hkysujjjf diabetes mellitus type 2, dyslipidemia, hypothyroid, glaucoma, varicose veins to his bilateral lower extremities and family history of coronary artery disease less than 60 years of age. Recently, the patient has had complaints of shortness of breath on exertion. He denies any complaints of chest discomfort, palpitations, fever, diarrhea, orthopnea, or edema. Subsequently he was seen by Dr. Kellogg from cardiology associates and he underwent a nuclear Cardiolite stress test on 07/15/2019 which demonstrated an abnormal myocardial perfusion imaging with reversible mid anterior wall defect and inferior wall defect consistent with stress-induced ischemia possibly in the diagonal branch and the RCA territory. It also showed the left ventricular systolic function to be mildly impaired. During the stress test he did have good exercise tolerance with positive electrocardiographic stress testing with chest discomfort during exercise consistent with stress-induced ischemia. He also underwent a 2-D echocardiogram which demonstrated a normal left ventricular size with normal function, normal diastolic function with an ejection fraction of 55%, mild tricuspid valve regurgitation and mild mitral valve regurgitation. Due to the abnormal stress test and his above-mentioned symptoms he underwent elective cardiac catheterization today which demonstrated a 30% stenosis to his left main coronary artery, a 99% stenosis to his proximal circumflex coronary artery, and an 80% stenosis to his proximal left anterior descending coronary artery. Due to the findings on the heart catheterization a consult was placed to Dr. Drake Gibbs from cardiothoracic surgery for further evaluation and surgical recommendations. POD #2 total arterial double coronary artery bypass grafting using the totally skeletonized right internal mammary artery crossing anteriorly the midline to the left anterior descending coronary artery, the totally skeletonized left internal mammary artery to the first obtuse marginal coronary artery in situ, exclusion of the left atrial appendage using a 35 mm Atriclip. Intraoperative transesophageal echocardiogram, epi-aortic scanning and graft flow measurements using the [employer] system. Postoperative acute blood loss anemia, an expected outcome due to hemodilution a nd cardiopulmonary bypass. On 08/10/2019 the patient was seen in follow-up at his bedside in the intensive care unit. He is sitting up to the bedside chair, and is in no acute distress. He denies any complaints of shortness of breath although he is complaining of surgical type pain to his right mid back. He remained hemodynamically stable and his current cardiac output is 7.2, cardiac index 3.7, PA pressures 23/6 and CVP of 9. He is showing normal sinus rhythm heart rate 82 on his bedside m onitor. Currently his oxygen saturations are 96% on room air and he was successfully extubated within 6 hours postoperatively at 2100 p.m. last night. He is achieving 1000 mL on his incentive spirometry with encouragement. He remains with mediastinal, left and right pleural chest tubes in to low continuous wall suction -20 cm H2O. No air leak is present. The chest tubes continued to drain thin serosanguineous drainage with his mediastinal chest tube draining 330 mL output since surgery, left pleural chest tube 300 mL output since surgery, and his right pleural chest tube draining 350 mL output since surgery. A Jacobson catheter remains in place for accurate I's and O's and he has had 660 mL output of clear yellow urine in the last 8 hours. Laboratory results today show a WBC count 8.5, hemoglobin 10.6, platelets 109, BUN 14 and creatinine 0.85. The patient was seen on 08/11/2019 in follow-up at his bedside in the intensive care unit. He is currently sitting up to the bedside chair and he is in no acute distress. Denies any complaints of shortness of breath although continues to complain of some surgical type pain to his left mid back this morning. He rates his pain 3 out of 10 on the pain scale. His [place]-Aniya catheter was removed yesterday although he still has a right IJ Cordis in place to continue CVP monitoring with a current CVP pressure of 8 mmHg. Oxygen saturation are 95% on room air and he is achieving 1500 mL on his incentive spirometry. The mediastinal and right pleural chest tubes were discontinued yesterday and he continues to have a left pleural chest tube in place to low continuous wall suction -20 cm H2O. There is no air leak present it is draining thin serosanguineous drainage with 50 mL output in the last 8 hours and 120 mL output in the last 24 hours. The Jacobson catheter was discontinued yesterday and he has been 40 on his own with 400 mL output in the last 8 hours. Laboratory results this morning show a WBC count 9.0, hemoglobin 10.2, platelets 106, BUN 18 and creatinine 1.00. A chest x-ray was completed this morning which demonstrates a small right pleural effusion. The patient reports that he was ambulating in his room yesterday 2 with minimal assistance from nursing staff. He remains hemodynamically stable and is currently on no inotropic or pressor support. Objective - Vital Signs Vital signs: Vital Signs Temp 97.7 F 08/11/19 08:00 Pulse 112 H 08/11/19 08:30 Resp 22 08/11/19 08:30 BP 133/67 08/11/19 00:30 Pulse Ox 97 08/11/19 08:30 Intake & Output 08/10/19 08/11/19 08/11/19 18:59 06:59 18:59 Intake Total 1951.401 670.146 66.04 Output Total 390 1030 20 Balance 1561.401 -359.854 46.04 Weight 73.9 kg Intake: IV 482.5 482 62 0.9 350 360 50 Nitro 1.5 ceFAZolin 2 gm In Sodium 50 50 Chloride 0.9% 50 ml @ 100 mls/hr IVPB Q8HR [facility] Rx# :[id number] pressure bag 81 72 12 Intake, IV Titration 128.901 88.146 4.04 Amount Clevidipine Butyrate 25 3.667 mg In Empty Bag 1 bag @ 1 MG/HR 2 mls/hr IV .Q24H [facility] Rx#:[id number] Insulin Regular 100 unit 53.976 84.479 4.04 In Sodium Chloride 0.9% 100 ml @ Per Protocol IV .Q0M [facility] Rx#:[id number] Nitroglycerin-D5w Pmx 50 24.925 mg In Dextrose/Water 1 250ml.bag @ 5 MCG/MIN 1.5 mls/hr IV .Q24H [facility] Rx#: [id number] Sodium Chloride 0.9% 1, 50 000 ml @ 20 mls/hr IV . Q24H [facility] Rx#:[id number] Oral 1340 100 Output: Chest Tube Drainage 180 30 20 Chest Tube Mediastinal 20 Left Pleural Chest Tube 140 30 20 Right Pleural Chest Tube 20 Urine 210 1000 0 Other: Voiding Method Toilet Urinal ABP, PAP, CO, CI - Last Documented Arterial Blood Pressure 150/53 Pulmonary Artery Pressure 29/11 Cardiac Output 4.8 Cardiac Index 2.5 - Exam This is a a pleasant 69-year-old gentleman who is currently sitting up to the bedside chair in intensive care unit. He is in no acute distress. Oxygen saturations are 95% on room air. - Constitutional General appearance: Present: average body habitus, cooperative, no acute distress - EENT Eyes: Present: PERRLA, normal appearance. Absent: scleral icterus ENT: Present: hearing grossly normal, normal oropharynx - Neck Details: Neck is supple, no JVD. Neck: Absent: lymphadenopathy, stridor - Respiratory Details: Lung sounds essentially clear to his bilateral upper lobes, few scattered crackles to his bilateral bases. Respirations are symmetrical and nonlabored. Oxygen saturation is 95% on room air. Achieving 1500 mL on his incentive spirometry. Left pleural chest tube remains in place to low continuous wall suction -20 cm H2O. No air leak is present. Draining thin serosanguineous drainage with 50 mL output last 8 hours and 120 mL output last 24 hours. - Cardiovascular Details: Regular rhythm and tachycardic rate. S1 and S2 present, negative for S3, gallop or murmur. Sternum is stable. Bedside telemetry showing sinus tachycardia heart rate 103. Heart hugger is in place and he is demonstrating appropriate use. Knee-high CHRISTIANA hose and sequential compression devices in place to his bilateral lower extremities. Right IJ Cordis in place and connected to continuous CVP monitoring with the current CVP pressure of 8 mmHg. Right radial arterial line in place and functioning. - Gastrointestinal Gastrointestinal Comment(s): Abdomen is soft, nontender and nondistended. Hypoactive bowel sounds present in all 4 abdominal quadrants. No guarding or rigidity. No organomegaly. Tolerating oral intake. - Genitourinary Genitourinary Comment(s): Voiding clear julien urine. 400 mL output last 8 hours. - Integumentary Integumentary Comment(s): Skin is warm and dry. No clubbing or cyanosis is present. No rash or abnormal pigmentation is present. Midline sternal incision is clean, dry and approximated. Dressing is clean, dry and intact. - Neurologic Neurologic: Present: CNII-XII intact - Musculoskeletal Musculoskeletal: Present: gait normal, generalized weakness, strength equal bilaterally - Psychiatric Psychiatric: Present: A&O x's 3, appropriate affect, intact judgment & insight - Allied health notes Allied health notes reviewed: nursing - Labs CBC & Chem 7: 08/11/19 04:50 08/11/19 04:50 Labs: Abnormal Lab Results - Last 24 Hours (Table) 08/10/19 08/10/19 08/10/19 Range/Units 10:13 11:44 14:04 RBC (4.30-5.90) m/uL Hgb (13.0-17.5) gm/dL Hct (39.0-53.0) % Plt Count (150-450) k/uL Lymphocytes # (1.0-4.8) k/uL Sodium (137-145) mmol/L Carbon Dioxide (22-30) mmol/L Glucose (74-99) mg/dL POC Glucose (mg/dL) 229 H 138 H 199 H (75-99) mg/dL Alkaline Phosphatase (38-126) U/L Total Protein (6.3-8.2) g/dL Albumin (3.5-5.0) g/dL 08/10/19 08/10/19 08/10/19 Range/Units 16:20 17:01 18:09 RBC (4.30-5.90) m/uL Hgb (13.0-17.5) gm/dL Hct (39.0-53.0) % Plt Count (150-450) k/uL Lymphocytes # (1.0-4.8) k/uL Sodium (137-145) mmol/L Carbon Dioxide (22-30) mmol/L Glucose (74-99) mg/dL POC Glucose (mg/dL) 246 H 242 H 220 H (75-99) mg/dL Alkaline Phosphatase (38-126) U/L Total Protein (6.3-8.2) g/dL Albumin (3.5-5.0) g/dL 08/10/19 08/10/19 08/10/19 Range/Units 18:58 19:56 20:59 RBC (4.30-5.90) m/uL Hgb (13.0-17.5) gm/dL Hct (39.0-53.0) % Plt Count (150-450) k/uL Lymphocytes # (1.0-4.8) k/uL Sodium (137-145) mmol/L Carbon Dioxide (22-30) mmol/L Glucose (74-99) mg/dL POC Glucose (mg/dL) 206 H 212 H 213 H (75-99) mg/dL Alkaline Phosphatase (38-126) U/L Total Protein (6.3-8.2) g/dL Albumin (3.5-5.0) g/dL 08/10/19 08/10/19 08/10/19 Range/Units 22:03 23:15 23:16 RBC (4.30-5.90) m/uL Hgb (13.0-17.5) gm/dL Hct (39.0-53.0) % Plt Count (150-450) k/uL Lymphocytes # (1.0-4.8) k/uL Sodium (137-145) mmol/L Carbon Dioxide (22-30) mmol/L Glucose (74-99) mg/dL POC Glucose (mg/dL) 175 H 110 H 115 H (75-99) mg/dL Alkaline Phosphatase (38-126) U/L Total Protein (6.3-8.2) g/dL Albumin (3.5-5.0) g/dL 08/11/19 08/11/19 08/11/19 Range/Units 00:12 01:09 01:54 RBC (4.30-5.90) m/uL Hgb (13.0-17.5) gm/dL Hct (39.0-53.0) % Plt Count (150-450) k/uL Lymphocytes # (1.0-4.8) k/uL Sodium (137-145) mmol/L Carbon Dioxide (22-30) mmol/L Glucose (74-99) mg/dL POC Glucose (mg/dL) 128 H 130 H 130 H (75-99) mg/dL Alkaline Phosphatase (38-126) U/L Total Protein (6.3-8.2) g/dL Albumin (3.5-5.0) g/dL 08/11/19 08/11/19 08/11/19 Range/Units 02:59 03:50 04:50 RBC 3.42 L (4.30-5.90) m/uL Hgb 10.2 L (13.0-17.5) gm/dL Hct 30.5 L (39.0-53.0) % Plt Count 106 L (150-450) k/uL Lymphocytes # 0.7 L (1.0-4.8) k/uL Sodium (137-145) mmol/L Carbon Dioxide (22-30) mmol/L Glucose (74-99) mg/dL POC Glucose (mg/dL) 101 H 129 H (75-99) mg/dL Alkaline Phosphatase (38-126) U/L Total Protein (6.3-8.2) g/dL Albumin (3.5-5.0) g/dL 08/11/19 08/11/19 08/11/19 Range/Units 04:50 04:57 06:13 RBC (4.30-5.90) m/uL Hgb (13.0-17.5) gm/dL Hct (39.0-53.0) % Plt Count (150-450) k/uL Lymphocytes # (1.0-4.8) k/uL Sodium 133 L (137-145) mmol/L Carbon Dioxide 21 L (22-30) mmol/L Glucose 130 H (74-99) mg/dL POC Glucose (mg/dL) 132 H 119 H (75-99) mg/dL Alkaline Phosphatase 29 L (38-126) U/L Total Protein 5.4 L (6.3-8.2) g/dL Albumin 3.1 L (3.5-5.0) g/dL 08/11/19 08/11/19 Range/Units 07:01 09:02 RBC (4.30-5.90) m/uL Hgb (13.0-17.5) gm/dL Hct (39.0-53.0) % Plt Count (150-450) k/uL Lymphocytes # (1.0-4.8) k/uL Sodium (137-145) mmol/L Carbon Dioxide (22-30) mmol/L Glucose (74-99) mg/dL POC Glucose (mg/dL) 112 H 283 H (75-99) mg/dL Alkaline Phosphatase (38-126) U/L Total Protein (6.3-8.2) g/dL Albumin (3.5-5.0) g/dL - Imaging and Cardiology Chest x-ray: report reviewed, image reviewed Assessment and Plan Assessment: 1. Unstable angina with severe ostial LAD and circumflex coronary artery stenosis. Status post total arterial double coronary artery bypass grafting surgery 2. Overall preserved left ventricular function with an ejection fraction of 55% 3. History of dyslipidemia. 4. Ehr-opnxmav-ohvztwfqq diabetes mellitus. 5. History of Hypothyroid. 6. History of glaucoma 7. Family history of coronary artery disease less than 60 years of age 8. Postoperative acute blood loss anemia, an expected outcome. Plan: 1. Continue aspirin, Plavix, statin and beta jyoti. Increase metoprolol tartrate 50 mg by mouth twice a day. 2. Remove right IJ Cordis. 3. Encourage use of his incentive spirometry 10 times every hour while awake. 4. Remove left pleural chest tube. 5. Medical management and diabetic management per primary care service. 6. Remove right radial arterial line. 7. Continue to record accurate I's and O's and daily weights. 8. Bronchodilators per pulmonary medicine recommendations. 9. DVT and GI prophylaxis. 10. Continue to monitor daily labs and chest x-rays. Replace electrolytes per protocol. 11. The patient's was updated on his care per phone at [facility]. 12. Increase activity as tolerated. PT/OT is following. 13. Pain control per current when necessary regimen. Discontinue Daisy and start acetaminophen 1000 mg by mouth every 6 hours when necessary pain 14. Discharge planning is in place. Anticipate discharge home with home health care in the next 24-48 hours. 15. More recommendations to follow based on patient's clinical course. Time with Patient: Greater than 30
[2019-08-11] MEDS ORDERED: ACETAMINOPHEN TAB 500 MG TAB PO PRN (09:15)
[2019-08-11 10:29] LABS: Glucose,Whole Blood 294 mg/dL (75-99)
[2019-08-11 12:46] LABS: Glucose,Whole Blood 168 mg/dL (75-99)
[2019-08-11] MEDS: metFORMIN 500 MG TAB PO SCH ×2 (12:53→20:05)
[2019-08-11] MEDS: INSULIN ASPART (NovoLOG) 100 UNIT/ML VIAL SQ SCH ×3 (12:53→20:06)
--- NOTE | 2019-08-11 12:53 | P.PN ---
Subjective Progress Note Date: 08/11/19 Principal diagnosis: Status post CABG for severe ostial LAD and circumflex coronary artery stenosis, postoperative day #2 This is a very pleasant 69-year-old gentleman who follows with Dr. Ng as his primary care provider. He has a history of hyperlipidemia, diabetes mellitus, hypothyroidism. He had recently been having issues with dyspnea on exertion. He is a lifelong nonsmoker. Stress test revealed evidence of ischemia and he was brought in today electively for a cardiac catheterization with Dr. Kellogg. He was found to have moderate disease in the distal left main with critical stenosis involving the ostium of the LAD in the right coronary artery. He was recommended coronary artery bypass grafting surgery which will be performed on 08/09/2019. We're consulted for critical care/mechanical ventilator management. He is seen today in consultation. He is awake and alert in no acute distress. Denies any worsening shortness of breath, cough or congestion. No chest pain currently. He is maintaining O2 saturations in the 90s on room air. He's bradycardic. Slightly hypertensive. White count 5.7. Hemoglobin 14.6. Platelets 221. Glucose 156. Urinalysis clear. He's been initiated on a heparin drip. 0.9 normal saline @ 100 ML's per hour. The patient is seen today 08/07/2019 in follow-up on the selective care unit. He is currently sitting up in a chair at the bedside. Awake and alert in no acute distress. He denies any chest pain. No shortness of breath, cough or congestion. He is maintaining O2 saturations in the upper 90s on room air. He 's afebrile. Hemodynamically stable. His FEV1 value is 95% of predicted. White count 5.0. Hemoglobin 12.8. INR 1.1. Sodium 139. Potassium 4.7. Creatinine 1.10. CoVID 19 screen was negative. He has been practicing with his incentive spirometer and doing well. Chest x-ray revealed no acute pulmonary process. Carotid Dopplers revealed no significant carotid artery stenosis. He remains on a heparin drip. Plan is for surgery on 08/09/2019. Patient was reevaluated today on 08/10/19, patient is status post CABG, postoperative day #1. Patient was on mechanical ventilation post surgery, and within a few hours the patient was extubated uneventfully. Reevaluated today in the ICU, patient is doing well, he is off mechanical ventilation, presently on room air at 94% saturation. He is hemodynamically stable, his IV fluids at KVO. Remains on insulin at 3.5 units per hour. His cardiac output is 7.2 cardiac index is 3.7. Patient has 3 chest tubes one of them is mediastinal draining 330 overnight, right pleural drain to 45, and left pleural drain to 63. Serosanguineous drainage noted in all chest tubes. Patient is doing well with incentive spirometry. And he was extubated exactly at 2100 hrs. Chest x-ray showed bilateral chest tubes, and minimal bibasilar atelectasis. CBC is relatively normal hemoglobin is 10.6. Basic metabolic profile is normal renal profile is normal. Reevaluated today on 08/11/19, patient is postoperative day #2. Patient is sitting in a bedside chair, in no distress, on room air, 2 of his chest tubes were removed, continues to have one chest tube in place. Denies any pain denies any shortness of breath, denies any fever or chills. His mediastinal and right sided chest tube was discontinued yesterday, continues to have a left sided pleural chest tube. Chest x-ray is reassuring, minimal bibasilar atelectasis noted. And this is expected post surgery. CBC is relatively normal. Basic metabolic profile is normal Objective - Vital Signs Vital signs: Vital Signs Temp 97.7 F 08/11/19 08:00 Pulse 85 08/11/19 11:36 Resp 22 08/11/19 08:30 BP 133/67 08/11/19 00:30 Pulse Ox 97 08/11/19 08:30 Intake & Output 08/10/19 08/11/19 08/11/19 18:59 06:59 18:59 Intake Total 1951.401 670.146 81.964 Output Total 390 1030 20 Balance 1561.401 -359.854 61.964 Weight 73.9 kg Intake: IV 482.5 482 62 0.9 350 360 50 Nitro 1.5 ceFAZolin 2 gm In Sodium 50 50 Chloride 0.9% 50 ml @ 100 mls/hr IVPB Q8HR [facility] Rx# :[id number] pressure bag 81 72 12 Intake, IV Titration 128.901 88.146 19.964 Amount Clevidipine Butyrate 25 3.667 mg In Empty Bag 1 bag @ 1 MG/HR 2 mls/hr IV .Q24H [facility] Rx#:[id number] Insulin Regular 100 unit 53.976 84.479 19.964 In Sodium Chloride 0.9% 100 ml @ Per Protocol IV .Q0M [facility] Rx#:[id number] Nitroglycerin-D5w Pmx 50 24.925 mg In Dextrose/Water 1 250ml.bag @ 5 MCG/MIN 1.5 mls/hr IV .Q24H [facility] Rx#: [id number] Sodium Chloride 0.9% 1, 50 000 ml @ 20 mls/hr IV . Q24H [facility] Rx#:[id number] Oral 1340 100 Output: Chest Tube Drainage 180 30 20 Chest Tube Mediastinal 20 Left Pleural Chest Tube 140 30 20 Right Pleural Chest Tube 20 Urine 210 1000 0 Other: Voiding Method Toilet Urinal ABP, PAP, CO, CI - Last Documented Arterial Blood Pressure 150/53 Pulmonary Artery Pressure 29/11 Cardiac Output 4.8 Cardiac Index 2.5 - Exam GENERAL EXAM: Alert, active, very pleasant 69-year-old gentleman, on room air Head: Atraumatic normocephalic. HEENT: PERRLA, EOMI, no active. Moist mucous membranes. CHEST: No chest wall deformity. LUNGS: Diminished breath sounds at the bases, left pleural chest tube is noted. CVS: S1 and S2 normal with no audible murmur, regular rhythm. ABDOMEN: No hepatosplenomegaly, normal bowel sounds, no guarding or rigidity. SPINE: No scoliosis or deformity SKIN: No rashes CENTRAL NERVOUS SYSTEM: Alert and oriented 3, no gross focal neurologic deficits EXTREMITIES: There is no peripheral edema. No clubbing, no cyanosis. Peripheral pulses are intact. Psychiatric: Normal mood, affect and normal mental status examination - Labs CBC & Chem 7: 08/11/19 04:50 08/11/19 04:50 Labs: Abnormal Lab Results - Last 24 Hours (Table) 08/10/19 08/10/19 08/10/19 Range/Units 14:04 16:20 17:01 RBC (4.30-5.90) m/uL Hgb (13.0-17.5) gm/dL Hct (39.0-53.0) % Plt Count (150-450) k/uL Lymphocytes # (1.0-4.8) k/uL Sodium (137-145) mmol/L Carbon Dioxide (22-30) mmol/L Glucose (74-99) mg/dL POC Glucose (mg/dL) 199 H 246 H 242 H (75-99) mg/dL Alkaline Phosphatase (38-126) U/L Total Protein (6.3-8.2) g/dL Albumin (3.5-5.0) g/dL 08/10/19 08/10/19 08/10/19 Range/Units 18:09 18:58 19:56 RBC (4.30-5.90) m/uL Hgb (13.0-17.5) gm/dL Hct (39.0-53.0) % Plt Count (150-450) k/uL Lymphocytes # (1.0-4.8) k/uL Sodium (137-145) mmol/L Carbon Dioxide (22-30) mmol/L Glucose (74-99) mg/dL POC Glucose (mg/dL) 220 H 206 H 212 H (75-99) mg/dL Alkaline Phosphatase (38-126) U/L Total Protein (6.3-8.2) g/dL Albumin (3.5-5.0) g/dL 08/10/19 08/10/19 08/10/19 Range/Units 20:59 22:03 23:15 RBC (4.30-5.90) m/uL Hgb (13.0-17.5) gm/dL Hct (39.0-53.0) % Plt Count (150-450) k/uL Lymphocytes # (1.0-4.8) k/uL Sodium (137-145) mmol/L Carbon Dioxide (22-30) mmol/L Glucose (74-99) mg/dL POC Glucose (mg/dL) 213 H 175 H 110 H (75-99) mg/dL Alkaline Phosphatase (38-126) U/L Total Protein (6.3-8.2) g/dL Albumin (3.5-5.0) g/dL 08/10/19 08/11/19 08/11/19 Range/Units 23:16 00:12 01:09 RBC (4.30-5.90) m/uL Hgb (13.0-17.5) gm/dL Hct (39.0-53.0) % Plt Count (150-450) k/uL Lymphocytes # (1.0-4.8) k/uL Sodium (137-145) mmol/L Carbon Dioxide (22-30) mmol/L Glucose (74-99) mg/dL POC Glucose (mg/dL) 115 H 128 H 130 H (75-99) mg/dL Alkaline Phosphatase (38-126) U/L Total Protein (6.3-8.2) g/dL Albumin (3.5-5.0) g/dL 08/11/19 08/11/19 08/11/19 Range/Units 01:54 02:59 03:50 RBC (4.30-5.90) m/uL Hgb (13.0-17.5) gm/dL Hct (39.0-53.0) % Plt Count (150-450) k/uL Lymphocytes # (1.0-4.8) k/uL Sodium (137-145) mmol/L Carbon Dioxide (22-30) mmol/L Glucose (74-99) mg/dL POC Glucose (mg/dL) 130 H 101 H 129 H (75-99) mg/dL Alkaline Phosphatase (38-126) U/L Total Protein (6.3-8.2) g/dL Albumin (3.5-5.0) g/dL 08/11/19 08/11/19 08/11/19 Range/Units 04:50 04:50 04:57 RBC 3.42 L (4.30-5.90) m/uL Hgb 10.2 L (13.0-17.5) gm/dL Hct 30.5 L (39.0-53.0) % Plt Count 106 L (150-450) k/uL Lymphocytes # 0.7 L (1.0-4.8) k/uL Sodium 133 L (137-145) mmol/L Carbon Dioxide 21 L (22-30) mmol/L Glucose 130 H (74-99) mg/dL POC Glucose (mg/dL) 132 H (75-99) mg/dL Alkaline Phosphatase 29 L (38-126) U/L Total Protein 5.4 L (6.3-8.2) g/dL Albumin 3.1 L (3.5-5.0) g/dL 08/11/19 08/11/19 08/11/19 Range/Units 06:13 07:01 09:02 RBC (4.30-5.90) m/uL Hgb (13.0-17.5) gm/dL Hct (39.0-53.0) % Plt Count (150-450) k/uL Lymphocytes # (1.0-4.8) k/uL Sodium (137-145) mmol/L Carbon Dioxide (22-30) mmol/L Glucose (74-99) mg/dL POC Glucose (mg/dL) 119 H 112 H 283 H (75-99) mg/dL Alkaline Phosphatase (38-126) U/L Total Protein (6.3-8.2) g/dL Albumin (3.5-5.0) g/dL 08/11/19 08/11/19 Range/Units 10:27 12:45 RBC (4.30-5.90) m/uL Hgb (13.0-17.5) gm/dL Hct (39.0-53.0) % Plt Count (150-450) k/uL Lymphocytes # (1.0-4.8) k/uL Sodium (137-145) mmol/L Carbon Dioxide (22-30) mmol/L Glucose (74-99) mg/dL POC Glucose (mg/dL) 294 H 168 H (75-99) mg/dL Alkaline Phosphatase (38-126) U/L Total Protein (6.3-8.2) g/dL Albumin (3.5-5.0) g/dL Assessment and Plan Assessment: Impression: Status post CABG, double coronary artery bypass grafting for severe ostial LAD and circumflex coronary artery disease. Postoperative day #2 History of unstable angina. History of dyslipidemia. History of type 2 diabetes. History of hypothyroidism. History of glaucoma. History of nephrolithiasis. Lifelong nonsmoker. Chronic dyspnea on exertion secondary to underlying coronary artery disease. Recommendation: Continue beta jyoti , statin Plavix aspirin. Continue incentive spirometer. Achieving over 1500 mL Ambulate. Continue bronchodilators. Continue GI and DVT prophylaxis. Continue to monitor daily labs including CBC, and electrolytes. Continue daily chest x-rays. Continue adequate pain control We'll continue to follow. Time with Patient: Less than 30
--- NOTE | 2019-08-11 13:10 | P.PN ---
<Kimberley Mayer - Last Filed: 08/11/19 12:13> Subjective This is Kimberley Mayer PA-C scribing on behalf of Dr. Sinclair The patient was interviewed and examined by Dr. Sinclair HPI/interval history Patient is a male with a past medical history significant for dyslipidemia, diabetes who presented for coronary angiogram to evaluate an abnormal stress test. He was found to have severe ostial LAD and left circumflex CAD. He underwent total arterial double coronary artery bypass grafting yesterday and TRICE clipping.patient remains in the ICU. he has not had any atrial fibrillation. He is currently in sinus rhythm.continues to complain of postoperative pain.beta blockers were increased today EXAMINATION Patient is afebrile, pulse in the 80s, respirations 20, blood pressure 150/53, oxygen saturation 97% Dr. Sinclair and examined the patient in the ICU breath sounds are reduced at left base heart sounds are soft, regular No JVD No lower extremity edema REVIEW OF LABS, ECG WBC 9.0, hemoglobin 10.2, platelets 106, sodium 133, potassium 4.2, BUN, creatinine 1 bedside telemetry revealed sinus rhythm IMPRESSION / ASSESSMENT: CAD status post total arterial double coronary artery bypass grafting, postop day #2 Dyslipidemia Diabetes normal LV systolic function PLAN: Agree with increasing beta blockers Continue statins and aspirin Objective - Vital Signs Vital signs: Vital Signs Temp 97.7 F 08/11/19 08:00 Pulse 85 08/11/19 11:36 Resp 22 08/11/19 08:30 BP 133/67 08/11/19 00:30 Pulse Ox 97 08/11/19 08:30 Intake & Output 08/10/19 08/11/19 08/11/19 18:59 06:59 18:59 Intake Total 1951.401 670.146 81.964 Output Total 390 1030 20 Balance 1561.401 -359.854 61.964 Weight 73.9 kg Intake: IV 482.5 482 62 0.9 350 360 50 Nitro 1.5 ceFAZolin 2 gm In Sodium 50 50 Chloride 0.9% 50 ml @ 100 mls/hr IVPB Q8HR ON LICENSE OF [facility] Rx# :[id number] pressure bag 81 72 12 Intake, IV Titration 128.901 88.146 19.964 Amount Clevidipine Butyrate 25 3.667 mg In Empty Bag 1 bag @ 1 MG/HR 2 mls/hr IV .Q24H [facility] Rx#:[id number] Insulin Regular 100 unit 53.976 84.479 19.964 In Sodium Chloride 0.9% 100 ml @ Per Protocol IV .Q0M [facility] Rx#:[id number] Nitroglycerin-D5w Pmx 50 24.925 mg In Dextrose/Water 1 250ml.bag @ 5 MCG/MIN 1.5 mls/hr IV .Q24H [facility] Rx#: [id number] Sodium Chloride 0.9% 1, 50 000 ml @ 20 mls/hr IV . Q24H [facility] Rx#:[id number] Oral 1340 100 Output: Chest Tube Drainage 180 30 20 Chest Tube Mediastinal 20 Left Pleural Chest Tube 140 30 20 Right Pleural Chest Tube 20 Urine 210 1000 0 Other: Voiding Method Toilet Urinal ABP, PAP, CO, CI - Last Documented Arterial Blood Pressure 150/53 Pulmonary Artery Pressure 29/11 Cardiac Output 4.8 Cardiac Index 2.5 - Labs CBC & Chem 7: 08/11/19 04:50 08/11/19 04:50 Labs: Abnormal Lab Results - Last 24 Hours (Table) 08/10/19 08/10/19 08/10/19 Range/Units 14:04 16:20 17:01 RBC (4.30-5.90) m/uL Hgb (13.0-17.5) gm/dL Hct (39.0-53.0) % Plt Count (150-450) k/uL Lymphocytes # (1.0-4.8) k/uL Sodium (137-145) mmol/L Carbon Dioxide (22-30) mmol/L Glucose (74-99) mg/dL POC Glucose (mg/dL) 199 H 246 H 242 H (75-99) mg/dL Alkaline Phosphatase (38-126) U/L Total Protein (6.3-8.2) g/dL Albumin (3.5-5.0) g/dL 08/10/19 08/10/19 08/10/19 Range/Units 18:09 18:58 19:56 RBC (4.30-5.90) m/uL Hgb (13.0-17.5) gm/dL Hct (39.0-53.0) % Plt Count (150-450) k/uL Lymphocytes # (1.0-4.8) k/uL Sodium (137-145) mmol/L Carbon Dioxide (22-30) mmol/L Glucose (74-99) mg/dL POC Glucose (mg/dL) 220 H 206 H 212 H (75-99) mg/dL Alkaline Phosphatase (38-126) U/L Total Protein (6.3-8.2) g/dL Albumin (3.5-5.0) g/dL 08/10/19 08/10/19 08/10/19 Range/Units 20:59 22:03 23:15 RBC (4.30-5.90) m/uL Hgb (13.0-17.5) gm/dL Hct (39.0-53.0) % Plt Count (150-450) k/uL Lymphocytes # (1.0-4.8) k/uL Sodium (137-145) mmol/L Carbon Dioxide (22-30) mmol/L Glucose (74-99) mg/dL POC Glucose (mg/dL) 213 H 175 H 110 H (75-99) mg/dL Alkaline Phosphatase (38-126) U/L Total Protein (6.3-8.2) g/dL Albumin (3.5-5.0) g/dL 08/10/19 08/11/19 08/11/19 Range/Units 23:16 00:12 01:09 RBC (4.30-5.90) m/uL Hgb (13.0-17.5) gm/dL Hct (39.0-53.0) % Plt Count (150-450) k/uL Lymphocytes # (1.0-4.8) k/uL Sodium (137-145) mmol/L Carbon Dioxide (22-30) mmol/L Glucose (74-99) mg/dL POC Glucose (mg/dL) 115 H 128 H 130 H (75-99) mg/dL Alkaline Phosphatase (38-126) U/L Total Protein (6.3-8.2) g/dL Albumin (3.5-5.0) g/dL 08/11/19 08/11/19 08/11/19 Range/Units 01:54 02:59 03:50 RBC (4.30-5.90) m/uL Hgb (13.0-17.5) gm/dL Hct (39.0-53.0) % Plt Count (150-450) k/uL Lymphocytes # (1.0-4.8) k/uL Sodium (137-145) mmol/L Carbon Dioxide (22-30) mmol/L Glucose (74-99) mg/dL POC Glucose (mg/dL) 130 H 101 H 129 H (75-99) mg/dL Alkaline Phosphatase (38-126) U/L Total Protein (6.3-8.2) g/dL Albumin (3.5-5.0) g/dL 08/11/19 08/11/19 08/11/19 Range/Units 04:50 04:50 04:57 RBC 3.42 L (4.30-5.90) m/uL Hgb 10.2 L (13.0-17.5) gm/dL Hct 30.5 L (39.0-53.0) % Plt Count 106 L (150-450) k/uL Lymphocytes # 0.7 L (1.0-4.8) k/uL Sodium 133 L (137-145) mmol/L Carbon Dioxide 21 L (22-30) mmol/L Glucose 130 H (74-99) mg/dL POC Glucose (mg/dL) 132 H (75-99) mg/dL Alkaline Phosphatase 29 L (38-126) U/L Total Protein 5.4 L (6.3-8.2) g/dL Albumin 3.1 L (3.5-5.0) g/dL 08/11/19 08/11/19 08/11/19 Range/Units 06:13 07:01 09:02 RBC (4.30-5.90) m/uL Hgb (13.0-17.5) gm/dL Hct (39.0-53.0) % Plt Count (150-450) k/uL Lymphocytes # (1.0-4.8) k/uL Sodium (137-145) mmol/L Carbon Dioxide (22-30) mmol/L Glucose (74-99) mg/dL POC Glucose (mg/dL) 119 H 112 H 283 H (75-99) mg/dL Alkaline Phosphatase (38-126) U/L Total Protein (6.3-8.2) g/dL Albumin (3.5-5.0) g/dL 08/11/19 Range/Units 10:27 RBC (4.30-5.90) m/uL Hgb (13.0-17.5) gm/dL Hct (39.0-53.0) % Plt Count (150-450) k/uL Lymphocytes # (1.0-4.8) k/uL Sodium (137-145) mmol/L Carbon Dioxide (22-30) mmol/L Glucose (74-99) mg/dL POC Glucose (mg/dL) 294 H (75-99) mg/dL Alkaline Phosphatase (38-126) U/L Total Protein (6.3-8.2) g/dL Albumin (3.5-5.0) g/dL <uMstapha Sinclair - Last Filed: 08/11/19 13:10> Objective - Vital Signs Vital signs: Vital Signs Temp 97.7 F 08/11/19 12:00 Pulse 100 08/11/19 13:00 Resp 22 08/11/19 13:00 BP 117/65 08/11/19 12:30 Pulse Ox 96 08/11/19 13:00 Intake & Output 08/10/19 08/11/19 08/11/19 18:59 06:59 18:59 Intake Total 1951.401 670.146 248.006 Output Total 390 1030 20 Balance 1561.401 -359.854 228.006 Weight 73.9 kg 73.9 kg Intake: IV 482.5 482 196 0.9 350 360 160 Nitro 1.5 ceFAZolin 2 gm In Sodium 50 50 Chloride 0.9% 50 ml @ 100 mls/hr IVPB Q8HR [facility] Rx# :[id number] pressure bag 81 72 36 Intake, IV Titration 128.901 88.146 52.006 Amount Clevidipine Butyrate 25 3.667 mg In Empty Bag 1 bag @ 1 MG/HR 2 mls/hr IV .Q24H [facility] Rx#:[id number] Insulin Regular 100 unit 53.976 84.479 52.006 In Sodium Chloride 0.9% 100 ml @ Per Protocol IV .Q0M [facility] Rx#:[id number] Nitroglycerin-D5w Pmx 50 24.925 mg In Dextrose/Water 1 250ml.bag @ 5 MCG/MIN 1.5 mls/hr IV .Q24H ON LICENSE OF [facility] Rx#: [id number] Sodium Chloride 0.9% 1, 50 000 ml @ 20 mls/hr IV . Q24H ON LICENSE OF [facility] Rx#:[id number] Oral 1340 100 Output: Chest Tube Drainage 180 30 20 Chest Tube Mediastinal 20 Left Pleural Chest Tube 140 30 20 Right Pleural Chest Tube 20 Urine 210 1000 0 Other: Voiding Method Toilet Urinal Urinal ABP, PAP, CO, CI - Last Documented Arterial Blood Pressure 117/61 Pulmonary Artery Pressure 29/11 Cardiac Output 4.8 Cardiac Index 2.5 - Labs CBC & Chem 7: 08/11/19 04:50 08/11/19 04:50 Labs: Abnormal Lab Results - Last 24 Hours (Table) 08/10/19 08/10/19 08/10/19 Range/Units 14:04 16:20 17:01 RBC (4.30-5.90) m/uL Hgb (13.0-17.5) gm/dL Hct (39.0-53.0) % Plt Count (150-450) k/uL Lymphocytes # (1.0-4.8) k/uL Sodium (137-145) mmol/L Carbon Dioxide (22-30) mmol/L Glucose (74-99) mg/dL POC Glucose (mg/dL) 199 H 246 H 242 H (75-99) mg/dL Alkaline Phosphatase (38-126) U/L Total Protein (6.3-8.2) g/dL Albumin (3.5-5.0) g/dL 08/10/19 08/10/19 08/10/19 Range/Units 18:09 18:58 19:56 RBC (4.30-5.90) m/uL Hgb (13.0-17.5) gm/dL Hct (39.0-53.0) % Plt Count (150-450) k/uL Lymphocytes # (1.0-4.8) k/uL Sodium (137-145) mmol/L Carbon Dioxide (22-30) mmol/L Glucose (74-99) mg/dL POC Glucose (mg/dL) 220 H 206 H 212 H (75-99) mg/dL Alkaline Phosphatase (38-126) U/L Total Protein (6.3-8.2) g/dL Albumin (3.5-5.0) g/dL 08/10/19 08/10/19 08/10/19 Range/Units 20:59 22:03 23:15 RBC (4.30-5.90) m/uL Hgb (13.0-17.5) gm/dL Hct (39.0-53.0) % Plt Count (150-450) k/uL Lymphocytes # (1.0-4.8) k/uL Sodium (137-145) mmol/L Carbon Dioxide (22-30) mmol/L Glucose (74-99) mg/dL POC Glucose (mg/dL) 213 H 175 H 110 H (75-99) mg/dL Alkaline Phosphatase (38-126) U/L Total Protein (6.3-8.2) g/dL Albumin (3.5-5.0) g/dL 08/10/19 08/11/19 08/11/19 Range/Units 23:16 00:12 01:09 RBC (4.30-5.90) m/uL Hgb (13.0-17.5) gm/dL Hct (39.0-53.0) % Plt Count (150-450) k/uL Lymphocytes # (1.0-4.8) k/uL Sodium (137-145) mmol/L Carbon Dioxide (22-30) mmol/L Glucose (74-99) mg/dL POC Glucose (mg/dL) 115 H 128 H 130 H (75-99) mg/dL Alkaline Phosphatase (38-126) U/L Total Protein (6.3-8.2) g/dL Albumin (3.5-5.0) g/dL 08/11/19 08/11/19 08/11/19 Range/Units 01:54 02:59 03:50 RBC (4.30-5.90) m/uL Hgb (13.0-17.5) gm/dL Hct (39.0-53.0) % Plt Count (150-450) k/uL Lymphocytes # (1.0-4.8) k/uL Sodium (137-145) mmol/L Carbon Dioxide (22-30) mmol/L Glucose (74-99) mg/dL POC Glucose (mg/dL) 130 H 101 H 129 H (75-99) mg/dL Alkaline Phosphatase (38-126) U/L Total Protein (6.3-8.2) g/dL Albumin (3.5-5.0) g/dL 08/11/19 08/11/19 08/11/19 Range/Units 04:50 04:50 04:57 RBC 3.42 L (4.30-5.90) m/uL Hgb 10.2 L (13.0-17.5) gm/dL Hct 30.5 L (39.0-53.0) % Plt Count 106 L (150-450) k/uL Lymphocytes # 0.7 L (1.0-4.8) k/uL Sodium 133 L (137-145) mmol/L Carbon Dioxide 21 L (22-30) mmol/L Glucose 130 H (74-99) mg/dL POC Glucose (mg/dL) 132 H (75-99) mg/dL Alkaline Phosphatase 29 L (38-126) U/L Total Protein 5.4 L (6.3-8.2) g/dL Albumin 3.1 L (3.5-5.0) g/dL 08/11/19 08/11/19 08/11/19 Range/Units 06:13 07:01 09:02 RBC (4.30-5.90) m/uL Hgb (13.0-17.5) gm/dL Hct (39.0-53.0) % Plt Count (150-450) k/uL Lymphocytes # (1.0-4.8) k/uL Sodium (137-145) mmol/L Carbon Dioxide (22-30) mmol/L Glucose (74-99) mg/dL POC Glucose (mg/dL) 119 H 112 H 283 H (75-99) mg/dL Alkaline Phosphatase (38-126) U/L Total Protein (6.3-8.2) g/dL Albumin (3.5-5.0) g/dL 08/11/19 08/11/19 Range/Units 10:27 12:45 RBC (4.30-5.90) m/uL Hgb (13.0-17.5) gm/dL Hct (39.0-53.0) % Plt Count (150-450) k/uL Lymphocytes # (1.0-4.8) k/uL Sodium (137-145) mmol/L Carbon Dioxide (22-30) mmol/L Glucose (74-99) mg/dL POC Glucose (mg/dL) 294 H 168 H (75-99) mg/dL Alkaline Phosphatase (38-126) U/L Total Protein (6.3-8.2) g/dL Albumin (3.5-5.0) g/dL
--- NOTE | 2019-08-11 13:11 | P.PN ---
<Kimberley Mayer - Last Filed: 08/10/19 11:59> Subjective This is Kimberley Mayer PA-C scribing on behalf of Dr. Sinclair The patient was interviewed and examined by Dr. Sinclair HPI/interval history Patient is a male with a past medical history significant for dyslipidemia, diabetes who presented for coronary angiogram to evaluate an abnormal stress test. He was found to have severe ostial LAD and left circumflex CAD. He underwent total arterial double coronary artery bypass grafting yesterday and TRICE clipping. He is currently in the ICU. He complains of pleuritic incisional chest discomfort. He is in sinus rhythm, heart rates in the 70s. EXAMINATION Patient is afebrile, pulse in the 70s, respirations 19, blood pressure 135/52, oxygen saturation 97% Dr. Sinclair examined the patient Lung sounds diminished at the left base with few crackles at the right base Heart sounds are normal, normal S1-S2 Abdomen is soft SCDs on his legs no JVD REVIEW OF LABS, ECG WBC 8.5, hemoglobin 10.6, platelets 109, potassium 4.4, BUN 14, creatinine 0.85 Recent echocardiogram shows preserved LV systolic function IMPRESSION / ASSESSMENT: CAD status post total arterial double coronary artery bypass grafting, postop da y #1 Dyslipidemia Diabetes Served LV systolic function PLAN: Continue to maximize medical management with aspirin, statins, and beta blockers Objective - Vital Signs Vital signs: Vital Signs Temp 99.1 F 08/10/19 08:00 Pulse 77 08/10/19 11:00 Resp 19 08/10/19 11:00 BP 106/60 08/10/19 07:00 Pulse Ox 97 08/10/19 11:00 Intake & Output 08/09/19 08/10/19 08/10/19 18:59 06:59 18:59 Intake Total 216.947 7259.616 791.342 Output Total 3324 1789 275 Balance -0479.255 -446.384 516.342 Weight 73.9 kg Intake: IV 442 504.5 194.5 0.9 200 230 110 ACETAMINOPHEN IV (For NPO 100 100 ) 1,000 mg In Empty Bag 1 bag @ 400 mls/hr IVPB Q6H [facility] Rx#:[id number] Nitro 16.5 1.5 ceFAZolin 2 gm In Sodium 100 50 50 Chloride 0.9% 50 ml @ 100 mls/hr IVPB Q8HR [facility] Rx# :[id number] pressure bag 36 108 33 Intake, IV Titration 22.745 838.116 96.842 Amount Clevidipine Butyrate 25 47.700 mg In Empty Bag 1 bag @ 1 MG/HR 2 mls/hr IV .Q24H [facility] Rx#:[id number] Insulin Regular 100 unit 7.263 40.416 21.917 In Sodium Chloride 0.9% 100 ml @ Per Protocol IV .Q0M [facility] Rx#:[id number] Magnesium Sulfate-D5w Pmx 200 1 gm In Dextrose/Water 1 100ml.bag @ 100 mls/hr IVPB Q1H [facility] Rx#: [id number] Nitroglycerin-D5w Pmx 50 24.925 mg In Dextrose/Water 1 250ml.bag @ 5 MCG/MIN 1.5 mls/hr IV .Q24H [facility] Rx#: [id number] Propofol 1,000 mg In 15.482 Empty Bag 1 bag @ Titrate IV .Q0M [facility] Rx#: [id number] Sodium Chloride 0.9% 1, 550 50 000 ml @ 50 mls/hr IV . Q20H [facility] Rx#:[id number] Oral 500 Output: Chest Tube Drainage 434 504 140 Chest Tube Mediastinal 190 140 20 Left Pleural Chest Tube 80 183 100 Right Pleural Chest Tube 164 181 20 Urine 1890 1285 135 Estimated Blood Loss 1000 Other: Voiding Method Indwelling Catheter Indwelling Catheter Indwelling Catheter ABP, PAP, CO, CI - Last Documented Arterial Blood Pressure 135/52 Pulmonary Artery Pressure 29/11 Cardiac Output 4.8 Cardiac Index 2.5 - Labs CBC & Chem 7: 08/10/19 03:30 08/10/19 03:30 Labs: Abnormal Lab Results - Last 24 Hours (Table) 08/08/19 08/09/19 08/09/19 Range/Units 06:13 08:37 11:31 RBC (4.30-5.90) m/uL Hgb (13.0-17.5) gm/dL Hct (39.0-53.0) % Plt Count (150-450) k/uL Neutrophils # (1.3-7.7) k/uL Lymphocytes # (1.0-4.8) k/uL PT (9.0-12.0) sec INR (<1.2) APTT (22.0-30.0) sec ABG pO2 >420 H 237 H (83-108) mmHg ABG Total CO2 26 H 25 H (19-24) mmol/L ABG O2 Saturation 100.0 H 99.7 H (94-97) % ABG Hematocrit 33 L (34.0-46.0) % ABG Sodium (135-146) mmol/L ABG Potassium 5.5 H (3.4-4.5) mmol/L ABG Ionized Calcium (4.5-5.3) mg/dL ABG Glucose 136 H 159 H (75-99) mg/dL ABG Lactic Acid 1.9 H (0.5-1.6) mmol/L Hemoglobin 12.5 L 10.6 L (13.0-17.5) gm/dL Sodium (137-145) mmol/L Glucose (74-99) mg/dL POC Glucose (mg/dL) (75-99) mg/dL Calcium (8.4-10.2) mg/dL Alkaline Phosphatase (38-126) U/L Total Protein (6.3-8.2) g/dL Albumin (3.5-5.0) g/dL Arterial Blood Potassium 5.5 H (3.4-4.5) mmol/L Arterial Blood Glucose 136 H 159 H (75-99) mg/dL Crossmatch See Detail 08/09/19 08/09/19 08/09/19 Range/Units 12:20 13:11 14:31 RBC (4.30-5.90) m/uL Hgb (13.0-17.5) gm/dL Hct (39.0-53.0) % Plt Count (150-450) k/uL Neutrophils # (1.3-7.7) k/uL Lymphocytes # (1.0-4.8) k/uL PT (9.0-12.0) sec INR (<1.2) APTT (22.0-30.0) sec ABG pO2 408 H 242 H 320 H (83-108) mmHg ABG Total CO2 25 H (19-24) mmol/L ABG O2 Saturation 100.0 H 99.6 H 99.8 H (94-97) % ABG Hematocrit 26 L 26 L 28 L (34.0-46.0) % ABG Sodium 134 L 133 L (135-146) mmol/L ABG Potassium 5.1 H (3.4-4.5) mmol/L ABG Ionized Calcium 4.3 L 4.4 L (4.5-5.3) mg/dL ABG Glucose 141 H 242 H 167 H (75-99) mg/dL ABG Lactic Acid 1.8 H 2.7 H* 2.7 H* (0.5-1.6) mmol/L Hemoglobin 8.4 L 8.5 L 9.1 L (13.0-17.5) gm/dL Sodium (137-145) mmol/L Glucose (74-99) mg/dL POC Glucose (mg/dL) (75-99) mg/dL Calcium (8.4-10.2) mg/dL Alkaline Phosphatase (38-126) U/L Total Protein (6.3-8.2) g/dL Albumin (3.5-5.0) g/dL Arterial Blood Potassium 5.1 H (3.4-4.5) mmol/L Arterial Blood Glucose 141 H 242 H 167 H (75-99) mg/dL Crossmatch 08/09/19 08/09/19 08/09/19 Range/Units 15:15 15:15 15:15 RBC 3.11 L (4.30-5.90) m/uL Hgb 9.1 L D (13.0-17.5) gm/dL Hct 27.4 L (39.0-53.0) % Plt Count 103 L (150-450) k/uL Neutrophils # (1.3-7.7) k/uL Lymphocytes # 0.4 L (1.0-4.8) k/uL PT 13.6 H (9.0-12.0) sec INR 1.4 H (<1.2) APTT 30.6 H (22.0-30.0) sec ABG pO2 (83-108) mmHg ABG Total CO2 (19-24) mmol/L ABG O2 Saturation (94-97) % ABG Hematocrit (34.0-46.0) % ABG Sodium (135-146) mmol/L ABG Potassium (3.4-4.5) mmol/L ABG Ionized Calcium (4.5-5.3) mg/dL ABG Glucose (75-99) mg/dL ABG Lactic Acid (0.5-1.6) mmol/L Hemoglobin (13.0-17.5) gm/dL Sodium (137-145) mmol/L Glucose 130 H (74-99) mg/dL POC Glucose (mg/dL) (75-99) mg/dL Calcium 7.9 L (8.4-10.2) mg/dL Alkaline Phosphatase 20 L (38-126) U/L Total Protein 4.7 L (6.3-8.2) g/dL Albumin 2.8 L (3.5-5.0) g/dL Arterial Blood Potassium (3.4-4.5) mmol/L Arterial Blood Glucose (75-99) mg/dL Crossmatch 08/09/19 08/09/19 08/09/19 Range/Units 15:18 15:49 15:50 RBC (4.30-5.90) m/uL Hgb (13.0-17.5) gm/dL Hct (39.0-53.0) % Plt Count (150-450) k/uL Neutrophils # (1.3-7.7) k/uL Lymphocytes # (1.0-4.8) k/uL PT (9.0-12.0) sec INR (<1.2) APTT (22.0-30.0) sec ABG pO2 >400 H (83-108) mmHg ABG Total CO2 25 H (19-24) mmol/L ABG O2 Saturation 100.0 H (94-97) % ABG Hematocrit (34.0-46.0) % ABG Sodium (135-146) mmol/L ABG Potassium (3.4-4.5) mmol/L ABG Ionized Calcium (4.5-5.3) mg/dL ABG Glucose (75-99) mg/dL ABG Lactic Acid (0.5-1.6) mmol/L Hemoglobin (13.0-17.5) gm/dL Sodium (137-145) mmol/L Glucose (74-99) mg/dL POC Glucose (mg/dL) 140 H 136 H (75-99) mg/dL Calcium (8.4-10.2) mg/dL Alkaline Phosphatase (38-126) U/L Total Protein (6.3-8.2) g/dL Albumin (3.5-5.0) g/dL Arterial Blood Potassium (3.4-4.5) mmol/L Arterial Blood Glucose (75-99) mg/dL Crossmatch 08/09/19 08/09/19 08/09/19 Range/Units 17:09 17:45 17:50 RBC 3.54 L (4.30-5.90) m/uL Hgb 10.5 L (13.0-17.5) gm/dL Hct 30.8 L (39.0-53.0) % Plt Count 115 L (150-450) k/uL Neutrophils # 8.3 H (1.3-7.7) k/uL Lymphocytes # 0.5 L (1.0-4.8) k/uL PT (9.0-12.0) sec INR (<1.2) APTT (22.0-30.0) sec ABG pO2 (83-108) mmHg ABG Total CO2 (19-24) mmol/L ABG O2 Saturation (94-97) % ABG Hematocrit (34.0-46.0) % ABG Sodium (135-146) mmol/L ABG Potassium (3.4-4.5) mmol/L ABG Ionized Calcium (4.5-5.3) mg/dL ABG Glucose (75-99) mg/dL ABG Lactic Acid (0.5-1.6) mmol/L Hemoglobin (13.0-17.5) gm/dL Sodium (137-145) mmol/L Glucose (74-99) mg/dL POC Glucose (mg/dL) 178 H 176 H (75-99) mg/dL Calcium (8.4-10.2) mg/dL Alkaline Phosphatase (38-126) U/L Total Protein (6.3-8.2) g/dL Albumin (3.5-5.0) g/dL Arterial Blood Potassium (3.4-4.5) mmol/L Arterial Blood Glucose (75-99) mg/dL Crossmatch 08/09/19 08/09/19 08/09/19 Range/Units 18:50 20:27 20:40 RBC (4.30-5.90) m/uL Hgb (13.0-17.5) gm/dL Hct (39.0-53.0) % Plt Count (150-450) k/uL Neutrophils # (1.3-7.7) k/uL Lymphocytes # (1.0-4.8) k/uL PT (9.0-12.0) sec INR (<1.2) APTT (22.0-30.0) sec ABG pO2 140 H (83-108) mmHg ABG Total CO2 (19-24) mmol/L ABG O2 Saturation 99.3 H (94-97) % ABG Hematocrit (34.0-46.0) % ABG Sodium (135-146) mmol/L ABG Potassium (3.4-4.5) mmol/L ABG Ionized Calcium (4.5-5.3) mg/dL ABG Glucose (75-99) mg/dL ABG Lactic Acid (0.5-1.6) mmol/L Hemoglobin (13.0-17.5) gm/dL Sodium (137-145) mmol/L Glucose (74-99) mg/dL POC Glucose (mg/dL) 190 H 179 H (75-99) mg/dL Calcium (8.4-10.2) mg/dL Alkaline Phosphatase (38-126) U/L Total Protein (6.3-8.2) g/dL Albumin (3.5-5.0) g/dL Arterial Blood Potassium (3.4-4.5) mmol/L Arterial Blood Glucose (75-99) mg/dL Crossmatch 08/09/19 08/09/19 08/09/19 Range/Units 21:21 22:04 23:04 RBC (4.30-5.90) m/uL Hgb (13.0-17.5) gm/dL Hct (39.0-53.0) % Plt Count (150-450) k/uL Neutrophils # (1.3-7.7) k/uL Lymphocytes # (1.0-4.8) k/uL PT (9.0-12.0) sec INR (<1.2) APTT (22.0-30.0) sec ABG pO2 (83-108) mmHg ABG Total CO2 (19-24) mmol/L ABG O2 Saturation (94-97) % ABG Hematocrit (34.0-46.0) % ABG Sodium (135-146) mmol/L ABG Potassium (3.4-4.5) mmol/L ABG Ionized Calcium (4.5-5.3) mg/dL ABG Glucose (75-99) mg/dL ABG Lactic Acid (0.5-1.6) mmol/L Hemoglobin (13.0-17.5) gm/dL Sodium (137-145) mmol/L Glucose (74-99) mg/dL POC Glucose (mg/dL) 173 H 157 H 153 H (75-99) mg/dL Calcium (8.4-10.2) mg/dL Alkaline Phosphatase (38-126) U/L Total Protein (6.3-8.2) g/dL Albumin (3.5-5.0) g/dL Arterial Blood Potassium (3.4-4.5) mmol/L Arterial Blood Glucose (75-99) mg/dL Crossmatch 08/09/19 08/10/19 08/10/19 Range/Units 23:56 01:01 02:00 RBC (4.30-5.90) m/uL Hgb (13.0-17.5) gm/dL Hct (39.0-53.0) % Plt Count (150-450) k/uL Neutrophils # (1.3-7.7) k/uL Lymphocytes # (1.0-4.8) k/uL PT (9.0-12.0) sec INR (<1.2) APTT (22.0-30.0) sec ABG pO2 (83-108) mmHg ABG Total CO2 (19-24) mmol/L ABG O2 Saturation (94-97) % ABG Hematocrit (34.0-46.0) % ABG Sodium (135-146) mmol/L ABG Potassium (3.4-4.5) mmol/L ABG Ionized Calcium (4.5-5.3) mg/dL ABG Glucose (75-99) mg/dL ABG Lactic Acid (0.5-1.6) mmol/L Hemoglobin (13.0-17.5) gm/dL Sodium (137-145) mmol/L Glucose (74-99) mg/dL POC Glucose (mg/dL) 142 H 115 H 107 H (75-99) mg/dL Calcium (8.4-10.2) mg/dL Alkaline Phosphatase (38-126) U/L Total Protein (6.3-8.2) g/dL Albumin (3.5-5.0) g/dL Arterial Blood Potassium (3.4-4.5) mmol/L Arterial Blood Glucose (75-99) mg/dL Crossmatch 08/10/19 08/10/19 08/10/19 Range/Units 03:20 03:30 03:30 RBC 3.62 L (4.30-5.90) m/uL Hgb 10.6 L (13.0-17.5) gm/dL Hct 32.0 L (39.0-53.0) % Plt Count 109 L (150-450) k/uL Neutrophils # (1.3-7.7) k/uL Lymphocytes # 0.7 L (1.0-4.8) k/uL PT (9.0-12.0) sec INR (<1.2) APTT (22.0-30.0) sec ABG pO2 (83-108) mmHg ABG Total CO2 (19-24) mmol/L ABG O2 Saturation (94-97) % ABG Hematocrit (34.0-46.0) % ABG Sodium (135-146) mmol/L ABG Potassium (3.4-4.5) mmol/L ABG Ionized Calcium (4.5-5.3) mg/dL ABG Glucose (75-99) mg/dL ABG Lactic Acid (0.5-1.6) mmol/L Hemoglobin (13.0-17.5) gm/dL Sodium 134 L (137-145) mmol/L Glucose 133 H (74-99) mg/dL POC Glucose (mg/dL) 126 H (75-99) mg/dL Calcium 8.2 L (8.4-10.2) mg/dL Alkaline Phosphatase 25 L (38-126) U/L Total Protein 5.4 L (6.3-8.2) g/dL Albumin 3.3 L (3.5-5.0) g/dL Arterial Blood Potassium (3.4-4.5) mmol/L Arterial Blood Glucose (75-99) mg/dL Crossmatch 08/10/19 08/10/19 08/10/19 Range/Units 03:55 05:06 06:15 RBC (4.30-5.90) m/uL Hgb (13.0-17.5) gm/dL Hct (39.0-53.0) % Plt Count (150-450) k/uL Neutrophils # (1.3-7.7) k/uL Lymphocytes # (1.0-4.8) k/uL PT (9.0-12.0) sec INR (<1.2) APTT (22.0-30.0) sec ABG pO2 (83-108) mmHg ABG Total CO2 (19-24) mmol/L ABG O2 Saturation (94-97) % ABG Hematocrit (34.0-46.0) % ABG Sodium (135-146) mmol/L ABG Potassium (3.4-4.5) mmol/L ABG Ionized Calcium (4.5-5.3) mg/dL ABG Glucose (75-99) mg/dL ABG Lactic Acid (0.5-1.6) mmol/L Hemoglobin (13.0-17.5) gm/dL Sodium (137-145) mmol/L Glucose (74-99) mg/dL POC Glucose (mg/dL) 137 H 128 H 110 H (75-99) mg/dL Calcium (8.4-10.2) mg/dL Alkaline Phosphatase (38-126) U/L Total Protein (6.3-8.2) g/dL Albumin (3.5-5.0) g/dL Arterial Blood Potassium (3.4-4.5) mmol/L Arterial Blood Glucose (75-99) mg/dL Crossmatch 08/10/19 08/10/19 08/10/19 Range/Units 07:07 08:33 10:13 RBC (4.30-5.90) m/uL Hgb (13.0-17.5) gm/dL Hct (39.0-53.0) % Plt Count (150-450) k/uL Neutrophils # (1.3-7.7) k/uL Lymphocytes # (1.0-4.8) k/uL PT (9.0-12.0) sec INR (<1.2) APTT (22.0-30.0) sec ABG pO2 (83-108) mmHg ABG Total CO2 (19-24) mmol/L ABG O2 Saturation (94-97) % ABG Hematocrit (34.0-46.0) % ABG Sodium (135-146) mmol/L ABG Potassium (3.4-4.5) mmol/L ABG Ionized Calcium (4.5-5.3) mg/dL ABG Glucose (75-99) mg/dL ABG Lactic Acid (0.5-1.6) mmol/L Hemoglobin (13.0-17.5) gm/dL Sodium (137-145) mmol/L Glucose (74-99) mg/dL POC Glucose (mg/dL) 156 H 161 H 229 H (75-99) mg/dL Calcium (8.4-10.2) mg/dL Alkaline Phosphatase (38-126) U/L Total Protein (6.3-8.2) g/dL Albumin (3.5-5.0) g/dL Arterial Blood Potassium (3.4-4.5) mmol/L Arterial Blood Glucose (75-99) mg/dL Crossmatch 08/10/19 Range/Units 11:44 RBC (4.30-5.90) m/uL Hgb (13.0-17.5) gm/dL Hct (39.0-53.0) % Plt Count (150-450) k/uL Neutrophils # (1.3-7.7) k/uL Lymphocytes # (1.0-4.8) k/uL PT (9.0-12.0) sec INR (<1.2) APTT (22.0-30.0) sec ABG pO2 (83-108) mmHg ABG Total CO2 (19-24) mmol/L ABG O2 Saturation (94-97) % ABG Hematocrit (34.0-46.0) % ABG Sodium (135-146) mmol/L ABG Potassium (3.4-4.5) mmol/L ABG Ionized Calcium (4.5-5.3) mg/dL ABG Glucose (75-99) mg/dL ABG Lactic Acid (0.5-1.6) mmol/L Hemoglobin (13.0-17.5) gm/dL Sodium (137-145) mmol/L Glucose (74-99) mg/dL POC Glucose (mg/dL) 138 H (75-99) mg/dL Calcium (8.4-10.2) mg/dL Alkaline Phosphatase (38-126) U/L Total Protein (6.3-8.2) g/dL Albumin (3.5-5.0) g/dL Arterial Blood Potassium (3.4-4.5) mmol/L Arterial Blood Glucose (75-99) mg/dL Crossmatch <Mustapha Sinclair - Last Filed: 08/11/19 13:10> Objective - Vital Signs Vital signs: Vital Signs Temp 97.7 F 08/11/19 12:00 Pulse 100 08/11/19 13:00 Resp 22 08/11/19 13:00 BP 117/65 08/11/19 12:30 Pulse Ox 96 08/11/19 13:00 Intake & Output 08/10/19 08/11/19 08/11/19 18:59 06:59 18:59 Intake Total 1951.401 670.146 248.006 Output Total 390 1030 20 Balance 1561.401 -359.854 228.006 Weight 73.9 kg 73.9 kg Intake: IV 482.5 482 196 0.9 350 360 160 Nitro 1.5 ceFAZolin 2 gm In Sodium 50 50 Chloride 0.9% 50 ml @ 100 mls/hr IVPB Q8HR [facility] Rx# :[id number] pressure bag 81 72 36 Intake, IV Titration 128.901 88.146 52.006 Amount Clevidipine Butyrate 25 3.667 mg In Empty Bag 1 bag @ 1 MG/HR 2 mls/hr IV .Q24H [facility] Rx#:[id number] Insulin Regular 100 unit 53.976 84.479 52.006 In Sodium Chloride 0.9% 100 ml @ Per Protocol IV .Q0M [facility] Rx#:[id number] Nitroglycerin-D5w Pmx 50 24.925 mg In Dextrose/Water 1 250ml.bag @ 5 MCG/MIN 1.5 mls/hr IV .Q24H [facility] Rx#: [id number] Sodium Chloride 0.9% 1, 50 000 ml @ 20 mls/hr IV . Q24H [facility] Rx#:[id number] Oral 1340 100 Output: Chest Tube Drainage 180 30 20 Chest Tube Mediastinal 20 Left Pleural Chest Tube 140 30 20 Right Pleural Chest Tube 20 Urine 210 1000 0 Other: Voiding Method Toilet Urinal Urinal ABP, PAP, CO, CI - Last Documented Arterial Blood Pressure 117/61 Pulmonary Artery Pressure 29/11 Cardiac Output 4.8 Cardiac Index 2.5 - Labs CBC & Chem 7: 08/11/19 04:50 08/11/19 04:50 Labs: Abnormal Lab Results - Last 24 Hours (Table) 08/10/19 08/10/19 08/10/19 Range/Units 14:04 16:20 17:01 RBC (4.30-5.90) m/uL Hgb (13.0-17.5) gm/dL Hct (39.0-53.0) % Plt Count (150-450) k/uL Lymphocytes # (1.0-4.8) k/uL Sodium (137-145) mmol/L Carbon Dioxide (22-30) mmol/L Glucose (74-99) mg/dL POC Glucose (mg/dL) 199 H 246 H 242 H (75-99) mg/dL Alkaline Phosphatase (38-126) U/L Total Protein (6.3-8.2) g/dL Albumin (3.5-5.0) g/dL 08/10/19 08/10/19 08/10/19 Range/Units 18:09 18:58 19:56 RBC (4.30-5.90) m/uL Hgb (13.0-17.5) gm/dL Hct (39.0-53.0) % Plt Count (150-450) k/uL Lymphocytes # (1.0-4.8) k/uL Sodium (137-145) mmol/L Carbon Dioxide (22-30) mmol/L Glucose (74-99) mg/dL POC Glucose (mg/dL) 220 H 206 H 212 H (75-99) mg/dL Alkaline Phosphatase (38-126) U/L Total Protein (6.3-8.2) g/dL Albumin (3.5-5.0) g/dL 08/10/19 08/10/19 08/10/19 Range/Units 20:59 22:03 23:15 RBC (4.30-5.90) m/uL Hgb (13.0-17.5) gm/dL Hct (39.0-53.0) % Plt Count (150-450) k/uL Lymphocytes # (1.0-4.8) k/uL Sodium (137-145) mmol/L Carbon Dioxide (22-30) mmol/L Glucose (74-99) mg/dL POC Glucose (mg/dL) 213 H 175 H 110 H (75-99) mg/dL Alkaline Phosphatase (38-126) U/L Total Protein (6.3-8.2) g/dL Albumin (3.5-5.0) g/dL 08/10/19 08/11/19 08/11/19 Range/Units 23:16 00:12 01:09 RBC (4.30-5.90) m/uL Hgb (13.0-17.5) gm/dL Hct (39.0-53.0) % Plt Count (150-450) k/uL Lymphocytes # (1.0-4.8) k/uL Sodium (137-145) mmol/L Carbon Dioxide (22-30) mmol/L Glucose (74-99) mg/dL POC Glucose (mg/dL) 115 H 128 H 130 H (75-99) mg/dL Alkaline Phosphatase (38-126) U/L Total Protein (6.3-8.2) g/dL Albumin (3.5-5.0) g/dL 08/11/19 08/11/19 08/11/19 Range/Units 01:54 02:59 03:50 RBC (4.30-5.90) m/uL Hgb (13.0-17.5) gm/dL Hct (39.0-53.0) % Plt Count (150-450) k/uL Lymphocytes # (1.0-4.8) k/uL Sodium (137-145) mmol/L Carbon Dioxide (22-30) mmol/L Glucose (74-99) mg/dL POC Glucose (mg/dL) 130 H 101 H 129 H (75-99) mg/dL Alkaline Phosphatase (38-126) U/L Total Protein (6.3-8.2) g/dL Albumin (3.5-5.0) g/dL 08/11/19 08/11/19 08/11/19 Range/Units 04:50 04:50 04:57 RBC 3.42 L (4.30-5.90) m/uL Hgb 10.2 L (13.0-17.5) gm/dL Hct 30.5 L (39.0-53.0) % Plt Count 106 L (150-450) k/uL Lymphocytes # 0.7 L (1.0-4.8) k/uL Sodium 133 L (137-145) mmol/L Carbon Dioxide 21 L (22-30) mmol/L Glucose 130 H (74-99) mg/dL POC Glucose (mg/dL) 132 H (75-99) mg/dL Alkaline Phosphatase 29 L (38-126) U/L Total Protein 5.4 L (6.3-8.2) g/dL Albumin 3.1 L (3.5-5.0) g/dL 08/11/19 08/11/19 08/11/19 Range/Units 06:13 07:01 09:02 RBC (4.30-5.90) m/uL Hgb (13.0-17.5) gm/dL Hct (39.0-53.0) % Plt Count (150-450) k/uL Lymphocytes # (1.0-4.8) k/uL Sodium (137-145) mmol/L Carbon Dioxide (22-30) mmol/L Glucose (74-99) mg/dL POC Glucose (mg/dL) 119 H 112 H 283 H (75-99) mg/dL Alkaline Phosphatase (38-126) U/L Total Protein (6.3-8.2) g/dL Albumin (3.5-5.0) g/dL 08/11/19 08/11/19 Range/Units 10:27 12:45 RBC (4.30-5.90) m/uL Hgb (13.0-17.5) gm/dL Hct (39.0-53.0) % Plt Count (150-450) k/uL Lymphocytes # (1.0-4.8) k/uL Sodium (137-145) mmol/L Carbon Dioxide (22-30) mmol/L Glucose (74-99) mg/dL POC Glucose (mg/dL) 294 H 168 H (75-99) mg/dL Alkaline Phosphatase (38-126) U/L Total Protein (6.3-8.2) g/dL Albumin (3.5-5.0) g/dL
--- NOTE | 2019-08-11 15:54 | P.PN ---
Progress Note - Text Progress Note Date: 08/11/19 Presenting complaint: Chest pain Interval history: This is a pleasant 69-year-old patient who had been having dyspnea on exertion underwent a nuclear study that showed reversible findings. Cardiac catheterization showed significant coronary artery disease. Status post coronary bypass on August 08.. Today-ICU: All chest tubes have been taken out. Oral intake much better. Using incentive spirometer. To walk around the bed. Breathing stable. Daughter the bedside. Review of systems: Was done for constitutional, cardiovascular, GI, pulmonary. relevant finding as above Active Medications Acetaminophen (Tylenol Tab) 1,000 mg PO Q6HR PRN PRN Reason: Fever and/ or Pain Albuterol/Ipratropium (Duoneb 0.5 Mg-3 Mg/3 Ml Soln) 3 ml INHALATION RT-Q2H PRN PRN Reason: Shortness Of Breath Or Wheezing Albuterol/Ipratropium (Duoneb 0.5 Mg-3 Mg/3 Ml Soln) 3 ml INHALATION RT-QID [facility] Last Admin: 08/11/19 11:25 Dose: 3 ml Documented by: Aspirin (Aspirin) 325 mg PO DAILY [facility] Last Admin: 08/11/19 08:19 Dose: 325 mg Documented by: Atorvastatin Calcium (Lipitor) 40 mg PO DAILY [facility] Last Admin: 08/11/19 08:19 Dose: 40 mg Documented by: Benzocaine/Menthol (Cepacol Lozenge) 1 each MUCOUS MEM Q2H PRN PRN Reason: Sore Throat Bisacodyl (Dulcolax) 10 mg RECTAL DAILY PRN PRN Reason: Constipation Clopidogrel Bisulfate (Plavix) 75 mg PO DAILY [facility] Last Admin: 08/11/19 08:19 Dose: 75 mg Documented by: Heparin Sodium (Porcine) (Heparin) 5,000 unit SQ Q8HR [facility] Last Admin: 08/11/19 08:20 Dose: 5,000 unit Documented by: Amiodarone HCl 150 mg/ (Dextrose/Water) 103 mls @ 618 mls/hr IV .Q10M PRN; Protocol PRN Reason: A.FIB/FLUTTER Amiodarone HCl 360 mg/ (Dextrose/Water) 200 mls @ 33.333 mls/hr IV .Q6H PRN; Protocol PRN Reason: A.FIB/FLUTTER Amiodarone HCl 300 mg/ (Dextrose/Water) 250 mls @ 25 mls/hr IV .Q10H PRN; Protocol PRN Reason: A.FIB/FLUTTER Calcium Gluconate 2 gm/ Sodium (Chloride) 120 mls @ 100 mls/hr IVPB ONCE PRN PRN Reason: Ionized Calcium less than 4.4 Stop: 09/08/19 09:00 Sodium Chloride (Saline 0.9%) 1,000 mls @ 20 mls/hr IV .Q24H [facility] Last Admin: 08/11/19 08:21 Dose: 20 mls/hr Documented by: Insulin Aspart (Novolog) 0 unit SQ ACHS [facility]; Protocol Last Admin: 08/11/19 12:53 Dose: 2 unit Documented by: Ketorolac Tromethamine (Toradol) 15 mg IVP Q6HR [facility] Stop: 08/13/19 20:15 Last Admin: 08/11/19 12:53 Dose: 15 mg Documented by: Latanoprost (Xalatan 0.005%) 1 drops BOTH EYES HS [facility] Last Admin: 08/10/19 21:29 Dose: 1 drops Documented by: Levothyroxine Sodium (Synthroid) 75 mcg PO DAILY@0630 [facility] Last Admin: 08/11/19 06:26 Dose: 75 mcg Documented by: Magnesium Hydroxide (Milk Of Magnesia) 2,400 mg PO BID PRN PRN Reason: Constipation Metformin HCl (Glucophage) 500 mg PO BID [facility] Last Admin: 08/11/19 12:53 Dose: 500 mg Documented by: Metoprolol Tartrate (Lopressor) 50 mg PO BID [facility] Last Admin: 08/11/19 08:19 Dose: 50 mg Documented by: Miscellaneous Information (Potassium Per Protocol) 1 each MISCELLANE DAILY PRN; Protocol PRN Reason: Per Protocol Miscellaneous Information (Magnesium Per Protocol) 1 each MISCELLANE DAILY PRN; Protocol PRN Reason: Per Protocol Miscellaneous Information (Phosphorus Per Protocol) 1 each MISCELLANE DAILY PRN; Protocol PRN Reason: Per Protocol Nitroglycerin (Nitrostat) 0.4 mg SUBLINGUAL Q5M PRN PRN Reason: Chest Pain Rhopressa ( Netarsudil Mesylate) 0.02% Ophthal Soln 1 drop BOTH EYES QAM [facility] Last Admin: 08/11/19 08:20 Dose: Not Given Documented by: Ondansetron HCl (Zofran) 4 mg IVP Q6HR PRN PRN Reason: Nausea And Vomiting Pantoprazole Sodium (Protonix) 40 mg PO AC-BRKFST [facility] Last Admin: 08/11/19 08:19 Dose: 40 mg Documented by: Senna/Docusate Sodium (Senokot-S) 2 each PO HS [facility] Last Admin: 08/10/19 21:26 Dose: 2 each Documented by: Sodium Chloride (Saline Flush) 10 ml IV BID [facility] Last Admin: 08/11/19 08:20 Dose: 10 ml Documented by: On examination: VITAL SIGNS: 97.7, 89, 21, 117/65, 96% on room air GENERAL APPEARANCE: Sitting a chair, more comfortable awake HEENT: Normal external appearance of nose and ear. Oral cavity normal EYES: Pupils equal. Conjunctiva normal. NECK: JVD unable to assess. Mass not palpable. RESPIRATORY: Respiratory effort increased. Lungs decreased breath sounds-. CARDIOVASCULAR: First and second sounds normal. No edema. ABDOMEN: Soft. Liver and spleen not palpable. No tenderness. No mass palpable. Jacobson catheter present PSYCHIATRY: AO 3, mood affect normal CHEST wall: All chest tubes are discontinued INVESTIGATIONS, reviewed in the clinical context: White count 9 hemoglobin 10.2 platelets 106 potassium 4.2 creatinine 1.0 Accu-Cheks 168 Previous investigations: White count 5.5 hemoglobin 13.3 potassium 4.3 creatinine 1.15 Assessment: -Status post coronary bypass -Severe coronary artery disease -Diabetes mellitus type 2 -GERD -Hyperlipidemia -Hypothyroid -Dupuytrens contracture both the hands -Acute postprocedure blood loss anemia as expected from surgery -Dilutional thrombocytopenia Plan: We'll DC the insulin drip. Resume patient metformin. Sliding scale insulin. Ensure patient is on a carbohydrate consistent diet. Care discussed with the patient daughter. Other medications to continue. Thank you Dr. Gibbs,
[2019-08-11 16:41] LABS: Glucose,Whole Blood 223 mg/dL (75-99)
[2019-08-11 20:01] LABS: Glucose,Whole Blood 256 mg/dL (75-99)
[2019-08-11] MEDS: SENNOSIDES-DOCUSATE SODIUM 1 EACH TAB PO SCH (20:05)
[2019-08-11] MEDS: LATANOPROST 0.005% OPHTH DROPS 2.5 ML BTL BOTH EYES SCH (20:06)
[2019-08-12 05:46] LABS: Basophils % (A) 0 %; Eosinophils # (A) 0.2 k/uL (0-0.7); Eosinophils % (A) 2 %; HCT 32.6 % (39.0-53.0); HGB 10.5 gm/dL (13.0-17.5); Lymphocytes % (A) 13 %; MCH 29.5 pg (25.0-35.0); MCHC 32.2 g/dL (31.0-37.0); MCV 91.8 fL (80.0-100.0); Mean Platelet Volume 8.8; Monocytes # (A) 0.6 k/uL (0-1.0); Monocytes % (A) 8 %; Neutrophils # (A) 5.7 k/uL (1.3-7.7); Neutrophils % (A) 74 %; Platelet Count 122 k/uL (150-450); RBC 3.55 m/uL (4.30-5.90); RDW 13.6 % (11.5-15.5); WBC 7.8 k/uL (3.8-10.6)
[2019-08-12 06:23] LABS: Albumin 3.2 g/dL (3.5-5.0); Calcium 9.5 mg/dL (8.4-10.2); Potassium 5.4 mmol/L (3.5-5.1); Total Bilirubin 0.4 mg/dL (0.2-1.3); Total Protein 5.7 g/dL (6.3-8.2)
--- NOTE | 2019-08-12 06:27 | XR ---
EXAMINATION TYPE: XR chest 2V DATE OF EXAM: 08/12/2019 COMPARISON: Chest x-ray from one day earlier and older studies. HISTORY: Postoperative CABG. TECHNIQUE: Frontal and lateral views of the chest are obtained. FINDINGS: Interval removal of left-sided chest tube. No pneumothorax is identified. Overlying sternal wires and mediastinal clips as well as cardiac closure device superior left portion of cardiac silho uette redemonstrated. Cardiac silhouette size is stable and upper limits of normal. Persistent bibasi lar opacities. Osseous structures are intact. IMPRESSION: Interval removal of left-sided chest tube without pneumothorax. Persistent small bilater al pleural effusions and associated bibasilar atelectasis and/or infiltrates.
[2019-08-12 06:30] LABS: Glucose,Whole Blood 184 mg/dL (75-99)
[2019-08-12] MEDS: LEVOTHYROXINE 75 MCG TAB PO SCH (06:38)
[2019-08-12] MEDS: INSULIN ASPART (NovoLOG) 100 UNIT/ML VIAL SQ SCH ×2 (06:38→11:58)
[2019-08-12] MEDS: KETOROLAC 30 MG/ML 1 ML VIAL IVP SCH ×2 (06:38→11:56)
[2019-08-12] MEDS: PANTOPRAZOLE 40 MG TABLET PO SCH (06:38)
[2019-08-12] MEDS: IPRATROPIUM-ALBUTEROL 3 ML NEB INHALATION SCH ×2 (07:52→11:38)
[2019-08-12] MEDS ORDERED: metFORMIN 500 MG TAB PO SCH (09:00)
[2019-08-12] MEDS ORDERED: METOPROLOL TARTRATE 25 MG TAB PO SCH (09:00)
[2019-08-12] MEDS: CLOPIDOGREL 75 MG TAB PO SCH (09:11)
[2019-08-12] MEDS: ATORVASTATIN 40 MG TAB PO SCH (09:11)
[2019-08-12] MEDS: ASPIRIN 325 MG TAB PO SCH (09:11)
[2019-08-12] MEDS: HEPARIN SODIUM,PORCINE 5,000 UNIT/ML 1 ML VIAL SQ SCH (09:12)
[2019-08-12] MEDS: SODIUM CHLORIDE 0.9% 1,000 ML IV SCH (09:16)
[2019-08-12] MEDS: NETARSUDIL MESYLATE BOTH EYES SCH (09:16)
[2019-08-12 09:17] VITALS: TEMP 98.1
[2019-08-12 11:51] LABS: Glucose,Whole Blood 231 mg/dL (75-99)
--- NOTE | 2019-08-12 12:52 | P.DS ---
Providers Date of admission: 08/06/19 11:33 Expected date of discharge: 08/12/19 Attending physician: Deja Kellogg Consults: 08/06/19 11:38 Consult Physician Routine Consulting Provider: Drake Gibbs Consult Reason/Comments: cabg Do you want consulting provider notified?: Already Contacted 08/06/19 12:05 Consult Physician Routine Consulting Provider: Maryse Hough Consult Reason/Comments: pulmonary management Do you want consulting provider notified?: Yes Consult Physician Routine Consulting Provider: Drake Gibbs Consult Reason/Comments: NEED BYPASS SX Do you want consulting provider notified?: Already Contacted Consult Physician Routine Consulting Provider: Ja Rollins Consult Reason/Comments: Medical Management Do you want consulting provider notified?: Yes Consult to Anesthesia Routine Consulting Provider: Anesthesia,Services Consult Reason/Comments: Cardiac Surgery Pre-Op 08/09/19 15:19 Consult Physician Routine Consulting Provider: Deja Kellogg Consult Reason/Comments: Protective Service Specialist Consult: post cardiac surgery Do you want consulting provider notified?: Yes Primary care physician: Hunter Ng [facility] Course: FINAL DIAGNOSIS: 1. Unstable angina with severe ostial LAD and circumflex coronary artery stenosis. Status post total arterial double coronary artery bypass grafting surgery 2. Overall preserved left ventricular function with an ejection fraction of 55% 3. History of dyslipidemia 4. Gwr-wxowdzp-ubfpgxplp diabetes mellitus type 2 5. History of Hypothyroid 6. History of glaucoma 7. Family history of coronary artery disease less than 60 years of age 8. Postoperative acute blood loss anemia, an expected outcome PRINCIPAL PROCEDURE: 1. Selective right and left coronary angiographic performed by Dr. Kellogg 2. Total arterial double coronary artery bypass grafting using the totally skeletonized right internal mammary artery crossing anteriorly the midline to the left anterior descending coronary artery, the totally skeletonized left internal mammary artery to the first obtuse marginal coronary artery in situ. 3. Exclusion of the left atrial appendage using a 35 mm Atriclip. 4. Intraoperative transesophageal echocardiogram performed by anesthesia. 5. Intraoperative epi-aortic scanning and graft flow measurements using the Medi-Stim system. HISTORY OF PRESENT ILLNESS: This is a 69-year-old gentleman who is followed by Dr. Hunter Ng on an outpatient basis. He is a past medical history significant for omr-qkfkyxj-eczwklcnt diabetes mellitus type 2, dyslipidemia, hypothyroid, glaucoma, varicose veins to his bilateral lower extremities and family history of coronary artery disease less than 60 years of age. The patient has had complaints of shortness of breath on exertion and denied any complaints of chest discomfort. Subsequently he underwent a nuclear Cardiolite stress test on 07/15/2019 which demonstrated an abnormal myocardial perfusion imaging with reversible mid anterior wall defect and inferior wall defect consistent with stress-induced ischemia possibly in the diagonal branch and the RCA territory. It also showed his left ventricular systolic function to be mildly impaired. During the stress test he did have good exercise tolerance with positive e lectrocardiographic stress testing with chest discomfort during exercise consistent with stress-induced ischemia. A 2-D echocardiogram was also completed which demonstrated a normal left ventricular size with normal function, normal diastolic function with an ejection fraction of 55%, mild tricuspid valve regurgitation and mild mitral valve regurgitation. Due to the abnormal stress test and symptoms he underwent elective cardiac catheterization performed by Dr. Kellogg, which demonstrated a 30% stenosis to his left main coronary artery, a 99% stenosis to his proximal circumflex coronary artery, and an 80% stenosis to his proximal left anterior descending coronary artery. Due to the findings on the heart catheterization a consult was placed to Dr. Drake Gibbs from cardiothoracic surgery for further evaluation and surgical recommendations. Subsequently, the heart catheterization results were reviewed with the patient and his , risks and benefits of myocardial revascularization surgery were discussed and knowing the risks and benefits including the STS risk score he was to proceed with urgent coronary artery bypass grafting surgery. HOSPITAL COURSE: The patient was admitted to the hospital, consent was obtained and he was brought to the preoperative area on 08/09/2019, prepared in the usual fashion and subsequently taken to the operating room where Dr. Drake Gibbs performed a total arterial double coronary artery bypass grafting surgery using the totally skeletonized right internal mammary artery crossing anteriorly the midline to the left anterior descending coronary artery, the totally skeletonized left internal mammary artery to the first obtuse marginal coronary artery in situ, exclusion of the left atrial appendage using a 35 mm Atriclip, intraoperative transesophageal echocardiogram performed by anesthesia, epi- aortic scanning and graft flow measurements using the Headspace-Stim system. Upon completion of the surgery the patient was transferred to the cardiovascular intensive care unit where he was recovered, monitored hemodynamically and where he progressed cardiac rehabilitation phase 1. He was extubated, all lines, tubes and supportive drips were discontinued when appropriate and transfer orders were placed for the cardiac stepdown unit for further monitoring and rehabilitation. His oxygen was titrated down, he continued to work with physical and occupational therapy, he was tolerating an oral diet, his pain was well-controlled and he was ready to be discharged home with [facility] care on postoperative day #3. He has received written and verbal instructions regarding his medications, activity restrictions, signs and symptoms requiring physician notification and his follow-up appointments. COMPLICATIONS: There were no postoperative complications. CONSULTATIONS: 1. Dr. Kellogg for cardiology management. 2. Dr. Hough for pulmonary and ventilator management. 3. Dr. Rollins for medical/diabetes management. DISCHARGE INSTRUCTIONS: 1. No driving for 4 weeks, or until physician gives their ok. 2. The patient should sleep in their own bed, no medical bed needed. 3. Stairs are not an issue. If the bedroom is upstairs, it is advised that the patient go up at night and down in the morning for the first week. Go slowly, using handrail and take 1 step at a time. 4. CHRISTIANA hose are to be worn for 30 days or until physician discontinues. 5. Heart hugger is to be worn 100% of the time until physician discontinues.(except when showering) 6. No lifting, pushing, or pulling more than 10 pounds for 12 weeks. The physician will advise of any restriction changes. 7. The patient is expected to continue the prescribed walking program. 8. Continue pain control per as needed orders. 9. Continue with incentive spirometry and splinting/heart hugger until otherwise directed by the physician. 10. Must shower daily using liquid antibacterial soap and a separate white w ashcloth for each individual incision. 11. Routine sternal incision care, no ointments, lotions or powders on the incisions. 12. Please notify surgeon/nurse practitioner for temperature greater than 101F or purulent drainage from incisions 13. Prescriptions for first 30 days given per cardiac surgery service. After 30 days, all prescription refills obtained through cardiology/primary care physician. 14. A red arm and has been placed on this patient it should be worn for 30 days post surgery and will be removed by the cardiothoracic surgeons. If an ER visit is necessary, please make sure the number on the red arm band is called. 15. You have been referred to and are expected to begin Cardiac Rehab in approximately 4-6 weeks. 16. The patient has been instructed to check his blood sugars before meals and at bedtime, keep a record of his blood sugars and bring the list of blood sugars to his follow-up appointment with Dr. Ng his primary care physician. HOME HEALTH SERVICES TO PROVIDE: RN SKILLED HOME CARE SERVICES FOR POST-OP SURGICAL PATIENTS WITH THE FOLLOWING: Coronary Artery Bypass Surgery (CABG), Mitral Valve Replacement/Repair ( MVR), Aortic Valve Replacement/Repair (AVR) RN TO CONTINUE EDUCATION FROM ``ROAD TO A HEALTH HEART PATIENT EDUCATION MANUAL" (GIVEN TO PATIENT IN THE HOSPITAL) MEDICATION RECONCILIATION WITH EDUCATION NEEDED ON FIRST HOME VISIT EMPHASIZE IMPORTANCE OF WEARING BREAST SUPPORT/HEART HUGGER ENCOURAGE USE OF INCENTIVE SPIROMETER 10 X EVERY HOUR WHILE AWAKE ENCOURAGE UTILIZATION OF LOWER EXTREMITY COMPRESSION STOCKINGS/CHRISTIANA HOSE and ELEVATE LEGS ABOVE LEVEL OF HEART WHILE AT REST. ENCOURAGE AMBULATION 3-5x/day INCREASING TOLERATES, WHILE AVOID EXTREMES IN TEMPERATURE FREQUENCY: RN TO OPEN THE PATIENT WITHIN 24 HOURS OF DISCHARGE FROM THE HOSPITAL WITH [place]HE[place] [facility] [place]ISIT 2-3 X A WEEK FOR 4 WEEKS ESTABLISHED BY PATIENT NEEDS. REMOVAL OF SUTURES: NURSING SERVICES TO REMOVE SUTURES TWO WEEKS POST SURGICAL DATE [ default ]. If any questions regarding suture removal please call the office at [phone]. LABORATORY: CBC, CMP TO BE DRAWN ON THE THIRD DAY HOME, (RAN STAT) FAX RESULTS TO [phone]. TELEHEALTH PARAMETERS: WEIGHT: NOTIFY MD OF WEIGHT GAIN OF 2 LBS IN 24 HOURS OR 5 LBS IN ONE WEEK HR: NOTIFY MD OF HR <55 BPM OR HR>100 BPM BP: NOTIFY MD IF BP <90/55 OR BP>140/100 O2 SAT: NOTIFY MD IF PO2<93% ON ROOM AIR SEND TELEHEALTH REPORT TO INSTANTIZER OPERATOR AND CARDIOVASCULAR SURGEON THE FIRST WEEK OF CARE AND THEN BI-WEEKLY. PLEASE ADDITIONALLY COMMUNICATE ANY ABNORMALS AND NEW FINDINGS TO THE SURGEONS OFFICE. Plan - Discharge Summary Discharge Rx Participant: No New Discharge Prescriptions: New metFORMIN HCL 1,000 mg PO BID #60 tab Aspirin 325 mg PO DAILY #30 tab Atorvastatin [Lipitor] 40 mg PO DAILY #30 tab Metoprolol Tartrate [Lopressor] 75 mg PO BID #180 tab Clopidogrel [Plavix] 75 mg PO DAILY #30 tab Pantoprazole [Protonix] 40 mg PO AC-BRKFST #30 tablet. Acetaminophen Tab [Tylenol] 1,000 mg PO Q6HR PRN tab PRN Reason: Fever And/ Or Pain Continue Fenofibrate Nanocrystallized [Fenofibrate] 48 mg PO DAILY Levothyroxine Sodium [Synthroid] 75 mcg PO DAILY Netarsudil Mesylate [Rhopressa] 1 drop BOTH EYES QAM Latanoprost Ophth [Xalatan 0.005%] 1 drop BOTH EYES HS Cyanocobalamin (Vitamin B-12) [Vitamin B-12] 1,000 mcg PO DAILY Multivit-Min/Folic/Vit K/Lycop [Men's Multivitamin Tablet] 1 each PO DAILY Cholecalciferol (Vitamin D3) [Vitamin D3] 125 mcg PO DAILY Docusate Sodium [Dok] 100 mg PO BID Melatonin 1 mg PO HS Discontinued metFORMIN HCL [Metformin HCl ER] 500 mg PO BID Cinnamon Bark [Cinnamon] 1,000 mg PO BID Niacin 500 mg PO DAILY Garlic 1 tab PO BID Cranberry Fruit Extract [Cranberry] 500 mg PO DAILY Metoprolol Tartrate [Lopressor] 25 mg PO BID [place]-3 Fatty Acids/Fish Oil [Fish Oil 1,000 mg Softgel] 1 each PO BID Discharge Medication List Fenofibrate Nanocrystallized [Fenofibrate] 48 mg PO DAILY 04/09/16 [History] Levothyroxine Sodium [Synthroid] 75 mcg PO DAILY 04/09/16 [History] Cyanocobalamin (Vitamin B-12) [Vitamin B-12] 1,000 mcg PO DAILY 11/13/17 [History] Latanoprost Ophth [Xalatan 0.005%] 1 drop BOTH EYES HS 11/13/17 [History] Netarsudil Mesylate [Rhopressa] 1 drop BOTH EYES QAM 11/13/17 [History] Cholecalciferol (Vitamin D3) [Vitamin D3] 125 mcg PO DAILY 08/04/19 [History] Docusate Sodium [Dok] 100 mg PO BID 08/04/19 [History] Multivit-Min/Folic/Vit K/Lycop [Men's Multivitamin Tablet] 1 each PO DAILY 08/04/19 [History] Melatonin 1 mg PO HS 08/06/19 [History] Acetaminophen Tab [Tylenol] 1,000 mg PO Q6HR PRN tab 08/12/19 [Rx] Aspirin 325 mg PO DAILY #30 tab 08/12/19 [Rx] Atorvastatin [Lipitor] 40 mg PO DAILY #30 tab 08/12/19 [Rx] Clopidogrel [Plavix] 75 mg PO DAILY #30 tab 08/12/19 [Rx] Metoprolol Tartrate [Lopressor] 75 mg PO BID #180 tab 08/12/19 [Rx] Pantoprazole [Protonix] 40 mg PO AC-HARLANKFST #30 tablet. 08/12/19 [Rx] metFORMIN HCL 1,000 mg PO BID #60 tab 08/12/19 [Rx] Follow up Appointment(s)/Referral(s): Deja Kellogg MD [STAFF PHYSICIAN] - 08/23/19 10:45 am Drake Gibbs MD [STAFF PHYSICIAN] - 09/10/19 10:00 am [facility], [NON-STAFF] - 1-2 Days Maryse Hough MD [STAFF PHYSICIAN] - 08/30/19 1:00 pm Hunter Ng MD [Primary Care Provider] - 08/20/19 9:30 am Ambulatory/Diagnostic Orders: Basic Metabolic Panel [LAB.AMB] Time Frame: 08/16/19, Facility: [facility], Location: [facility] Complete Blood Count w/diff [LAB.AMB] Time Frame: 08/16/19, Facility: [facility], Location: [facility] Patient Instructions/Handouts: After Radial Heart Catheterization (GEN), Procedural Sedation (ED) Activity/Diet/Wound Care/Special Instructions: *NO LIFTING, PUSHING, OR PULLING ANYTHING OVER 5 POUNDS FOR 5 DAYS WITH YOUR RIGHT WRIST. *NO DRIVING FOR 3 DAYS *YOU CAN SHOWER TOMORROW BUT DO NOT SUBMERSE YOUR PUNCTURE SITE IN WATER FOR A FEW DAYS TO PREVENT INFECTION - SO NO TUB BATHS, POOLS, HOT TUBS, DISHES...ETC. *ANY SIGNS OF BLEEDING (HARDNESS, SWELLING, OR EXCESSIVE BRUISING) HOLD DIRECT PRESSURE ON YOUR PUNCTURE SITE AND COME TO THE NEAREST EMERGENCY ROOM TO GET YOUR PUNCTURE SITE LOOKED AT -DO NOT DRIVE YOURSELF! EITHER CALL EMS OR HAVE SOMEONE DRIVE YOU! Post operative coronary artery bypass grafting surgery: DISCHARGE INSTRUCTIONS: 1. No driving for 4 weeks, or until physician gives their ok. 2. The patient should sleep in their own bed, no medical bed needed. 3. Stairs are not an issue. If the bedroom is upstairs, it is advised that the patient go up at night and down in the morning for the first week. Go slowly, using handrail and take 1 step at a time. 4. CHRISTIANA hose are to be worn for 30 days or until physician discontinues. 5. Heart hugger is to be worn 100% of the time until physician discontinues.(except when showering) 6. No lifting, pushing, or pulling more than 10 pounds for 12 weeks. The physician will advise of any restriction changes. 7. The patient is expected to continue the prescribed walking program. 8. Continue pain control per as needed orders. 9. Continue with incentive spirometry and splinting/heart hugger until oth erwise directed by the physician. 10. Must shower daily using liquid antibacterial soap and a separate white washcloth for each individual incision. 11. Routine sternal incision care. No powders, lotions, ointments on incisions. No dressings are necessary on incisions unless they are draining. Dermabond tape is to remain on sternal incision until surgeon follow-up. 12. Please call surgeon/TRANSPORT MEDIC for temp greater than 101 F or purulent drainage from incisions. 13. All prescriptions given by surgeon for 30 days. Refills need to be filled through supervisor/primary care physician. 14. A Red armband has been placed on the patient. It should be worn for 30 days post surgery and will be removed by the cardiac surgeons. If an ER visit is necessary, please make sure the number on the Red armband is called. 15. You have been referred to and are expected to begin Cardiac Rehab in approximately 4-6 weeks. HOME HEALTH SERVICES TO PROVIDE: RN SKILLED HOME CARE SERVICES FOR POST-OP SURGICAL PATIENTS WITH THE FOLLOWING: Coronary Artery Bypass Surgery (CABG), Mitral Valve Replacement/Repair ( MVR), Aortic Valve Replacement/Repair (AVR) RN TO CONTINUE EDUCATION FROM ``ROAD TO A HEALTH HEART PATIENT EDUCATION MANUAL (GIVEN TO PATIENT IN THE HOSPITAL) MEDICATION RECONCILIATION WITH EDUCATION NEEDED ON FIRST HOME VISIT EMPHASIZE IMPORTANCE OF WEARING BREAST SUPPORT/HEART HUGGER ENCOURAGE USE OF INCENTIVE SPIROMETER 10 X EVERY HOUR WHILE AWAKE ENCOURAGE UTILIZATION OF LOWER EXTREMITY COMPRESSION STOCKINGS/CHRISTIANA HOSE and ELEVATE LEGS ABOVE LEVEL OF HEART WHILE AT REST. ENCOURAGE AMBULATION 3-5x/day INCREASING TOLERATES, WHILE AVOIDING EXTREMES IN TEMPERATURE FREQUENCY: RN TO OPEN THE PATIENT WITHIN 24 HOURS OF DISCHARGE FROM THE HOSPITAL WITH [place] [facility] [place] TO VISIT 2-3 X A WEEK FOR 4 WEEKS ESTABLISHED BY PATIENT NEEDS. LABORATORY: CBC, CMP TO BE DRAWN ON THE THIRD DAY HOME, (RAN STAT) FAX RESULTS TO [phone]. TELEHEALTH PARAMETERS: WEIGHT: NOTIFY MD OF WEIGHT GAIN OF 2 LBS IN 24 HOURS OR 5 LBS IN ONE WEEK HR: NOTIFY MD OF HR <55 BPM OR HR>100 BPM BP: NOTIFY MD IF BP <90/55 OR BP>140/100 O2 SAT: NOTIFY MD IF PO2<93% ON ROOM AIR SEND TELEHEALTH REPORT TO INSTANTIZER OPERATOR AND CARDIOVASCULAR SURGEON THE FIRST WEEK OF CARE AND THEN BI-WEEKLY. PLEASE ADDITIONALLY COMMUNICATE ANY ABNORMALS AND NEW FINDINGS TO THE SURGEONS OFFICE. For any questions or concerns please call [employer] @ . Discharge Disposition: HOME WITH HOME HEALTH SERVICES
--- NOTE | 2019-08-12 13:06 | P.PN ---
Subjective Progress Note Date: 08/12/19 Principal diagnosis: Status post CABG for severe ostial LAD and circumflex coronary artery stenosis, postoperative day #3 This is a very pleasant 69-year-old gentleman who follows with Dr. Ng as his primary care provider. He has a history of hyperlipidemia, diabetes mellitus, hypothyroidism. He had recently been having issues with dyspnea on exertion. He is a lifelong nonsmoker. Stress test revealed evidence of ischemia and he was brought in today electively for a cardiac catheterization with Dr. Kellogg. He was found to have moderate disease in the distal left main with critical stenosis involving the ostium of the LAD in the right coronary artery. He was recommended coronary artery bypass grafting surgery which will be performed on 08/09/2019. We're consulted for critical care/mechanical ventilator management. He is seen today in consultation. He is awake and alert in no acute distress. Denies any worsening shortness of breath, cough or congestion. No chest pain currently. He is maintaining O2 saturations in the 90s on room air. He's bradycardic. Slightly hypertensive. White count 5.7. Hemoglobin 14.6. Platelets 221. Glucose 156. Urinalysis clear. He's been initiated on a heparin drip. 0.9 normal saline @ 100 ML's per hour. The patient is seen today 08/07/2019 in follow-up on the selective care unit. He is currently sitting up in a chair at the bedside. Awake and alert in no acute distress. He denies any chest pain. No shortness of breath, cough or congestion. He is maintaining O2 saturations in the upper 90s on room air. He 's afebrile. Hemodynamically stable. His FEV1 value is 95% of predicted. White count 5.0. Hemoglobin 12.8. INR 1.1. Sodium 139. Potassium 4.7. Creatinine 1.10. CoVID 19 screen was negative. He has been practicing with his incentive spirometer and doing well. Chest x-ray revealed no acute pulmonary process. Carotid Dopplers revealed no significant carotid artery stenosis. He remains on a heparin drip. Plan is for surgery on 08/09/2019. Patient was reevaluated today on 08/10/19, patient is status post CABG, postoperative day #1. Patient was on mechanical ventilation post surgery, and within a few hours the patient was extubated uneventfully. Reevaluated today in the ICU, patient is doing well, he is off mechanical ventilation, presently on room air at 94% saturation. He is hemodynamically stable, his IV fluids at KVO. Remains on insulin at 3.5 units per hour. His cardiac output is 7.2 cardiac index is 3.7. Patient has 3 chest tubes one of them is mediastinal draining 330 overnight, right pleural drain to 45, and left pleural drain to 63. Serosanguineous drainage noted in all chest tubes. Patient is doing well with incentive spirometry. And he was extubated exactly at 2100 hrs. Chest x-ray showed bilateral chest tubes, and minimal bibasilar atelectasis. CBC is relatively normal hemoglobin is 10.6. Basic metabolic profile is normal renal profile is normal. Reevaluated today on 08/11/19, patient is postoperative day #2. Patient is sitting in a bedside chair, in no distress, on room air, 2 of his chest tubes were removed, continues to have one chest tube in place. Denies any pain denies any shortness of breath, denies any fever or chills. His mediastinal and right sided chest tube was discontinued yesterday, continues to have a left sided pleural chest tube. Chest x-ray is reassuring, minimal bibasilar atelectasis noted. And this is expected post surgery. CBC is relatively normal. Basic metabolic profile is normal Reevaluated today on 08/12/19, his postoperative day #3. Patient is doing great, asymptomatic, his left-sided chest tube was removed today. Patient is being considered for discharge home. Chest x-ray was reviewed and it showed small bilateral pleural effusions and minimal bibasilar atelectasis, expected. Objective - Vital Signs Vital signs: Vital Signs Temp 98.1 F 08/12/19 08:00 Pulse 95 08/12/19 12:00 Resp 21 08/12/19 12:00 BP 140/80 08/12/19 12:00 Pulse Ox 97 08/12/19 12:00 Intake & Output 08/11/19 08/12/19 08/12/19 18:59 06:59 18:59 Intake Total 278.006 600 240 Output Total 970 1450 0 Balance -691.994 -850 240 Weight 80.422 kg Intake: IV 226 0.9 190 pressure bag 36 Intake, IV Titration 52.006 Amount Insulin Regular 100 unit 52.006 In Sodium Chloride 0.9% 100 ml @ Per Protocol IV .Q0M [facility] Rx#:[id number] Oral 600 240 Output: Chest Tube Drainage 20 Left Pleural Chest Tube 20 Urine 950 1450 0 Other: Voiding Method Urinal Urinal Urinal ABP, PAP, CO, CI - Last Documented Arterial Blood Pressure 117/61 Pulmonary Artery Pressure 29/11 Cardiac Output 4.8 Cardiac Index 2.5 - Exam GENERAL EXAM: Alert, active, very pleasant 69-year-old gentleman, on room air Head: Atraumatic normocephalic. HEENT: PERRLA, EOMI, no active. Moist mucous membranes. CHEST: No chest wall deformity. LUNGS: Diminished breath sounds at the bases, CVS: S1 and S2 normal with no audible murmur, regular rhythm. ABDOMEN: No hepatosplenomegaly, normal bowel sounds, no guarding or rigidity. SPINE: No scoliosis or deformity SKIN: No rashes CENTRAL NERVOUS SYSTEM: Alert and oriented 3, no gross focal neurologic deficits EXTREMITIES: There is no peripheral edema. No clubbing, no cyanosis. Peripheral pulses are intact. Psychiatric: Normal mood, affect and normal mental status examination - Labs CBC & Chem 7: 08/12/19 05:30 08/12/19 05:30 Labs: Abnormal Lab Results - Last 24 Hours (Table) 08/11/19 08/11/19 08/12/19 Range/Units 16:38 19:59 05:30 RBC 3.55 L (4.30-5.90) m/uL Hgb 10.5 L (13.0-17.5) gm/dL Hct 32.6 L (39.0-53.0) % Plt Count 122 L (150-450) k/uL Potassium (3.5-5.1) mmol/L BUN (9-20) mg/dL Glucose (74-99) mg/dL POC Glucose (mg/dL) 223 H 256 H (75-99) mg/dL Total Protein (6.3-8.2) g/dL Albumin (3.5-5.0) g/dL 08/12/19 08/12/19 08/12/19 Range/Units 05:30 06:29 11:50 RBC (4.30-5.90) m/uL Hgb (13.0-17.5) gm/dL Hct (39.0-53.0) % Plt Count (150-450) k/uL Potassium 5.4 H (3.5-5.1) mmol/L BUN 22 H (9-20) mg/dL Glucose 186 H (74-99) mg/dL POC Glucose (mg/dL) 184 H 231 H (75-99) mg/dL Total Protein 5.7 L (6.3-8.2) g/dL Albumin 3.2 L (3.5-5.0) g/dL Assessment and Plan Assessment: Impression: Status post CABG, double coronary artery bypass grafting for severe ostial LAD and circumflex coronary artery disease. Postoperative day #3 History of unstable angina. History of dyslipidemia. History of type 2 diabetes. History of hypothyroidism. History of glaucoma. History of nephrolithiasis. Lifelong nonsmoker. Chronic dyspnea on exertion secondary to underlying coronary artery disease. Recommendation: Continue beta jyoti , statin Plavix aspirin. Continue incentive spirometer. Chest x-ray was reviewed, Agree with discharge planning today on follow-up on outpatient basis. Time with Patient: Less than 30
[2019-08-12 13:33] VITALS: RESP 22
[2019-08-12 14:37] VITALS: BP 158/85; PULSE 93
--- NOTE | 2019-08-12 21:25 | P.PN ---
Progress Note - Text Progress Note Date: 08/12/19 Presenting complaint: Chest pain Interval history: This is a pleasant 69-year-old patient who had been having dyspnea on exertion underwent a nuclear study that showed reversible findings. Cardiac catheterization showed significant coronary artery disease. Status post coronary bypass on August 08.. Today-ICU: Feeling well. Starting diet. Breathing stable. Accu-Cheks have been running on the higher side. Metformin increased to thousand milligrams twice a day. Told the nurse to have the patient check with dietitian. Review of systems: Was done for constitutional, cardiovascular, GI, pulmonary. relevant finding as above Current medications reviewed in today's electronic records On examination: VITAL SIGNS: 95, 21, 140/80, 97% GENERAL APPEARANCE: Sitting a chair, comfortable HEENT: Normal external appearance of nose and ear. Oral cavity normal EYES: Pupils equal. Conjunctiva normal. NECK: JVD unable to assess. Mass not palpable. RESPIRATORY: Respiratory effort increased. Lungs decreased breath sounds-. CARDIOVASCULAR: First and second sounds normal. No edema. ABDOMEN: Soft. Liver and spleen not palpable. No tenderness. No mass palpable. Jacobson catheter present PSYCHIATRY: AO 3, mood affect normal INVESTIGATIONS, reviewed in the clinical context: White count 7.8 hemoglobin 10.5 platelets 122 creatinine 1.10 Accu-Cheks 168 Previous investigations: White count 5.5 hemoglobin 13.3 potassium 4.3 creatinine 1.15 Assessment: -Status post coronary bypass -Severe coronary artery disease -Diabetes mellitus type 2 -GERD -Hyperlipidemia -Hypothyroid -Dupuytrens contracture both the hands -Acute postprocedure blood loss anemia as expected from surgery -Dilutional thrombocytopenia Plan: Patient metformin has been increased to thousand milligrams twice a day. Other medications to plan to continue. Discussed with the patient. Told to keep a close eye on his Accu-Cheks daily. Thank you Dr. Gibbs,
== END 2019-08-12 15:06 | disposition home health service (06) | DRG 234 ==
LOC: CATHCVL 08:21 → 3SCARD 11:33 → 2SICU 08-09 07:43
PROVIDERS: ADMIT Internal Medicine Interventional Cardiology; ATTEND Internal Medicine Interventional Cardiology
PROC: 4A023N7 Measurement of Cardiac Sampling and Pressure, Left Heart, Percutaneous Approach (ICD-10-PCS; 2019-08-06)
PROC: B2111ZZ Fluoroscopy of Multiple Coronary Arteries using Low Osmolar Contrast (ICD-10-PCS; 2019-08-06)
PROC: 5A1221Z Performance of Cardiac Output, Continuous (ICD-10-PCS; principal; 2019-08-09 08:00)
PROC: 02100Z9 Bypass Coronary Artery, One Artery from Left Internal Mammary, Open Approach (ICD-10-PCS; principal; 2019-08-09 08:00)
PROC: 02100Z8 Bypass Coronary Artery, One Artery from Right Internal Mammary, Open Approach (ICD-10-PCS; principal; 2019-08-09 08:00)
PROC: 02L70CK Occlusion of Left Atrial Appendage with Extraluminal Device, Open Approach (ICD-10-PCS; principal; 2019-08-09 08:00)
DX: I25.110 Atherosclerotic heart disease of native coronary artery with unstable angina pectoris (principal); J90 Pleural effusion, not elsewhere classified; D62 Acute posthemorrhagic anemia; J98.11 Atelectasis; Z11.59 Encounter for screening for other viral diseases; I11.9 Hypertensive heart disease without heart failure; D69.59 Other secondary thrombocytopenia; E11.9 Type 2 diabetes mellitus without complications; E03.9 Hypothyroidism, unspecified; I83.90 Asymptomatic varicose veins of unspecified lower extremity; H40.9 Unspecified glaucoma; I08.1 Rheumatic disorders of both mitral and tricuspid valves; K21.9 Gastro-esophageal reflux disease without esophagitis; M72.0 Palmar fascial fibromatosis [Dupuytren]; E78.2 Mixed hyperlipidemia; R00.1 Bradycardia, unspecified; Z71.3 Dietary counseling and surveillance; Z79.82 Long term (current) use of aspirin; Z87.891 Personal history of nicotine dependence; Z82.49 Family history of ischemic heart disease and other diseases of the circulatory system; Z79.890 Hormone replacement therapy; Z79.84 Long term (current) use of oral hypoglycemic drugs; Z79.899 Other long term (current) drug therapy; Z87.442 Personal history of urinary calculi; Z98.49 Cataract extraction status, unspecified eye; Z98.890 Other specified postprocedural states; Z88.1 Allergy status to other antibiotic agents; Z80.3 Family history of malignant neoplasm of breast; Z80.0 Family history of malignant neoplasm of digestive organs
CPT/HCPCS: 71045; 71046; 80048; 80053; 80061; 80074; 81003; 82330; 82805; 83036; 83735; 84443; 85025; 85027; 85520; 85610; 85730; 86850; 86891; 86900; 86901; 86920; 87070; 87635; 93458; 93880; 93922; 93970; 94002; 94150; 94640

== ENCOUNTER → 2020-05-22 | Outpatient (CLI) | payer MEDICARE, BC ==
[2020-05-22 21:24] LABS: Chol/HDL Ratio 2.94; LDL Cholesterol,Calculated 40.8 mg/dL (0.0-131.0); VLDL Calculation 23.2 mg/dL (5.00-40.00)
== END | disposition home or self-care (01) ==
LOC: LABWHC1 12:46
PROVIDERS: ATTEND Nurse Practitioner Adult Health
DX: E78.2 Mixed hyperlipidemia (principal)
CPT/HCPCS: 36415; 80061; 84450; 84460

== ENCOUNTER 2021-02-27 05:43 | Day surgery (SDC) | payer MEDICARE, BC ==
[2021-02-26 08:34] VITALS: BMI 22.1
[2021-02-27] MEDS ORDERED: ALPRAZolam 0.5 MG TAB PO PRN (05:58)
[2021-02-27] MEDS ORDERED: SODIUM CHLORIDE 0.9% 1,000 ML in EMPTY BAG 1 BAG IV SCH (05:58)
[2021-02-27] MEDS ORDERED: ATORVASTATIN 80 MG TAB PO STA (05:58)
[2021-02-27] MEDS ORDERED: NITROGLYCERIN SL TABS 0.4 MG TAB SUBLINGUAL PRN (05:58)
[2021-02-27] MEDS ORDERED: ALPRAZolam 0.25 MG TAB PO PRN (05:58)
[2021-02-27] MEDS ORDERED: ASPIRIN 325 MG TAB PO STA (05:58)
[2021-02-27 06:41] LABS: Glucose,Whole Blood 133 mg/dL (75-99)
[2021-02-27] MEDS ORDERED: ACETAMINOPHEN TAB 500 MG TAB PO ONE (06:50)
[2021-02-27 07:04] VITALS: TEMP 97.2
[2021-02-27 07:04] LABS: Basophils % (A) 0 %; Eosinophils # (A) 0.2 k/uL (0-0.7); Eosinophils % (A) 4 %; HCT 36.2 % (39.0-53.0); HGB 11.8 gm/dL (13.0-17.5); Lymphocytes # (A) 1.1 k/uL (1.0-4.8); Lymphocytes % (A) 26 %; MCH 27.7 pg (25.0-35.0); MCHC 32.7 g/dL (31.0-37.0); MCV 84.8 fL (80.0-100.0); Mean Platelet Volume 8.4; Monocytes # (A) 0.4 k/uL (0-1.0); Monocytes % (A) 9 %; Neutrophils # (A) 2.5 k/uL (1.3-7.7); Neutrophils % (A) 57 %; Platelet Count 165 k/uL (150-450); RBC 4.27 m/uL (4.30-5.90); RDW 13.4 % (11.5-15.5); WBC 4.4 k/uL (3.8-10.6)
[2021-02-27] MEDS ORDERED: fentaNYL (PF) 50 MCG/ML 2 ML AMP IVP ONE (12:28)
[2021-02-27] MEDS ORDERED: LIDOCAINE 1% INJ 10MG/ML (20 ML MDV) SQ ONE (12:29)
[2021-02-27] MEDS ORDERED: IOPAMIDOL-370 125ML BTL INJ ONE (12:47)
[2021-02-27] MEDS ORDERED: IOPAMIDOL-370 100ML BTL INJ ONE (12:50)
[2021-02-27] MEDS ORDERED: RX INFO: IV CONTRAST WAS GIVEN 1 EACH MISC MISCELLANE PRN (13:04)
[2021-02-27] MEDS ORDERED: SODIUM CHLORIDE 0.9% 1,000 ML IV SCH (13:15)
[2021-02-27 17:02] VITALS: BP 161/76; PULSE 54; RESP 16
--- NOTE | 2021-02-27 20:03 | CC ---
CARDIAC CATHETERIZATION REPORT Mr. Covington is a 70-year-old male with known history of coronary artery disease, status post coronary artery bypass grafting, history of hyperlipidemia and diabetes mellitus who has been complaining of persistent recurrent chest discomfort. In view of that, recommendation was made regarding cardiac catheterization. The procedure as well as risks and complications were discussed with the patient, who was in full understanding and agreement. PROCEDURE DESCRIPTION: Patient was brought to the blood bank laboratory technologist in a fasting, semi-sedated state after receiving fentanyl and Benadryl and achieving a moderate conscious sedated state. Using xylocaine anesthesia and Seldinger technique, a 6-Puerto [place]ican sheath was introduced in the right femoral artery. Selective right and left coronary angiography was performed using 6-[place]ican, 4 bend right and left Kenyatta catheters. Multiple views were taken of the arteries, including hemiaxial views. The right Kenyatta was used to cross the aortic valve and left ventricular end-diastolic pressure was calculated. Following that, an JOSEP catheter was used to cannulate the JAMES and the CRISSY. Images of the grafts were obtained. Following that, catheter and sheath were removed. Hemostasis was obtained with deployment of an Angio-Seal. There was no immediate complication. Patient was returned to his room in stable condition. FINDINGS: LEFT MAIN: This is a large-sized vessel bifurcating into left circumflex and left anterior descending artery. The distal left main has a 20% plaque. The rest of the vessel has no high-grade stenosis. LEFT ANTERIOR DESCENDING ARTERY: This vessel has a 60% to 70% stenosis at the takeoff in the ostium. The rest of the vessel has no high-grade stenosis. Competitive flow was noted in the mid LAD. LEFT CIRCUMFLEX: This vessel is nondominant giving rise to two large obtuse marginal branches. The left circumflex proximally at the ostium has a 70% to 80% percent stenosis. The rest of the vessel has no high-grade stenosis. RIGHT CORONARY ARTERY: The right coronary artery is a dominant vessel, moderate in caliber, bifurcating distally into PDA and posterolateral segment and branches. The right coronary artery as well as its branches have no evidence of obstructive coronary artery disease. JAMES TO THE OBTUSE MARGINAL BRANCH: The distal anastomotic site is patent. There is retrograde flow into the proximal left circumflex. The distal segment of the graft is tortuous, but has no evidence of high-grade stenosis. CRISSY TO THE LAD: The distal anastomotic site is patent. The flow into the LAD is brisk. There is no evidence of high-grade stenosis. HEMODYNAMICS: There was no gradient across the aortic valve. The left ventricular end- diastolic pressure was 12 to 16 mmHg. CONCLUSION: 1. Severe coronary artery disease involving the ostium of the LAD and the left circumflex. 2. Patent JAMES to the obtuse marginal branch and patent CRISSY to the LAD. RECOMMENDATIONS: In view of findings and anatomy, I recommend continued medical therapy with the present medical therapy. I see no significant obstructive disease in the grafts and, depending on his progress, further recommendations will be made. Those findings and recommendations were discussed with the patient and his family, who are in full understanding and agreement. Duration of sedation was 29 minutes. MERNA / FARRUKHN: [id number] /
[2021-02-27] MEDS ORDERED: ATORVASTATIN 20 MG TAB PO SCH (21:00)
[2021-02-27] MEDS ORDERED: METOPROLOL TARTRATE 50 MG TAB PO SCH (21:00)
[2021-02-28] MEDS ORDERED: NON FORMULARY DRUG (Aspirin [Adult Low Dose Aspirin Ec] 81 MG Tablet) PO SCH (09:00)
== END 2021-02-27 17:40 | disposition home or self-care (01) ==
LOC: CATHCVL 05:43
PROVIDERS: ATTEND Internal Medicine Interventional Cardiology
DX: I25.10 Atherosclerotic heart disease of native coronary artery without angina pectoris (principal); Z20.822 Contact with and (suspected) exposure to COVID-19
CPT/HCPCS: 93459; 85025; 87635; C1760; C1894; C1769; J2001; J3010; Q9967 ×2

== ENCOUNTER → 2021-08-07 | Outpatient (CLI) | payer MEDICARE, BC | END | disposition home or self-care (01) | LOC: CPPFTMAIN 12:51 | PROVIDERS: ATTEND Internal Medicine | DX: R06.00 Dyspnea, unspecified (principal) | CPT/HCPCS: 94060; 94726; 94729 ==

== ENCOUNTER → 2022-03-19 | Outpatient (CLI) | payer MEDICARE, BC ==
--- NOTE | 2022-03-20 07:33 | CT ---
EXAMINATION TYPE: CT chest wo con DATE OF EXAM: 03/19/2022 COMPARISON: Prior chest CT September 03, 2021 and older CTs back through 2013 HISTORY: SOLITARY PULMONARY NODULE CT DLP: 329.80 mGycm. Automated Exposure Control for Dose Reduction was Utilized. TECHNIQUE: CT scan of the thorax is performed without IV contrast. FINDINGS: LUNGS: Stable 10 x 8 mm peripheral nodularity favoring postinflammatory scar axial image [address] slightly more prominent from older CTs. Mild biapical pleural/parenchymal scarring is rede monstrated. Slightly elevated left hemidiaphragm redemonstrated. No new or enlarging greater than 5 m m pulmonary nodules. There is no pleural effusion or pneumothorax seen. The tracheobronchial tree i s patent. MEDIASTINUM: Lack of IV contrast is noted to limit evaluation for mediastinal and especially hilar ad enopathy. There are no definitive new greater than 1 cm mediastinal lymph nodes. No cardiomegaly or pericardial effusion is seen. Overlying sternal wires and mediastinal clips along with left atrial a ppendage clip are all redemonstrated. OTHER: No additional significant abnormality is seen. IMPRESSION: Stable 10 by 8mm right upper lung peripheral nodularity favoring postinflammatory scar fr om most recent CT. Consider one more CT follow-up in 1 year time to document closer to 2 years stabil ity. No new greater than 5 mm pulmonary nodules.
== END | disposition home or self-care (01) ==
LOC: RADCTMAIN 16:28
PROVIDERS: ATTEND Internal Medicine
DX: R91.1 Solitary pulmonary nodule (principal)
CPT/HCPCS: 71250

== ENCOUNTER 2022-07-06 11:41 | Emergency (ER) | payer MEDICARE, BC ==
[2022-07-06 11:47] VITALS: TEMP 97.5
[2022-07-06 11:58] VITALS: RESP 16
[2022-07-06 12:32] LABS: Basophils % (A) 1 %; Eosinophils # (A) 0.2 k/uL (0-0.7); Eosinophils % (A) 4 %; HCT 41.4 % (39.0-53.0); HGB 14.4 gm/dL (13.0-17.5); Lymphocytes # (A) 1.3 k/uL (1.0-4.8); Lymphocytes % (A) 25 %; MCHC 34.9 g/dL (31.0-37.0); Mean Platelet Volume 8.1; Monocytes # (A) 0.5 k/uL (0-1.0); Monocytes % (A) 9 %; Neutrophils # (A) 2.9 k/uL (1.3-7.7); Neutrophils % (A) 58 %; Platelet Count 176 k/uL (150-450); RBC 4.66 m/uL (4.30-5.90); RDW 12.9 % (11.5-15.5); WBC 5.1 k/uL (3.8-10.6)
[2022-07-06 12:46] LABS: ALT 24 U/L (4-49); AST 27 U/L (17-59); African American GFR (CKD) >90 (>60 ml/min/1.73 sqM); Albumin 4.8 g/dL (3.5-5.0); Alkaline Phosphatase 41 U/L (38-126); Anion Gap 13 mmol/L; Blood Urea Nitrogen 18 mg/dL (9-20); Calcium 10.3 mg/dL (8.4-10.2); Carbon Dioxide 24 mmol/L (22-30); Chloride 103 mmol/L (98-107); Glucose 106 mg/dL (74-99); Non-African American GFR(CKD) >90 (>60 ml/min/1.73 sqM); Potassium 4.4 mmol/L (3.5-5.1); Sodium 140 mmol/L (137-145); Total Bilirubin 0.7 mg/dL (0.2-1.3); Total Protein 7.4 g/dL (6.3-8.2)
[2022-07-06] MEDS ORDERED: MECLIZINE 12.5 MG TAB PO STA (12:48)
[2022-07-06 12:53] LABS: Prothrombin Time 10.5 sec (9.0-12.0)
--- NOTE | 2022-07-06 13:07 | XR ---
EXAMINATION TYPE: XR chest 2V DATE OF EXAM: 07/06/2022 COMPARISON: 07/17/2021 INDICATION: Altered mental status TECHNIQUE: Frontal and lateral views of the chest are obtained. FINDINGS: The heart size is normal. The pulmonary vasculature is normal. The lungs are clear. Sternotomy wires are present from prior cardiac surgery. IMPRESSION: 1. No acute pulmonary process.
--- NOTE | 2022-07-06 14:13 | CT ---
EXAMINATION TYPE: CT brain wo con DATE OF EXAM: 07/06/2022 COMPARISON: Neurodeficit INDICATION: ams/dizzy DLP: 1096.5 mGycm, Automated exposure control for dose reduction was used. CONTRAST: None CT of the brain is performed utilizing 3 mm thick sections through the posterior fossa and 3 mm thick sections through the remaining calvarium. Study is performed within 24 hours of arrival to the hosp [facility]. No abnormal hyperdensity is present to suggest an acute intracranial hemorrhage. No mass lesion is evident. No acute infarcts are evident. Ventricles and sulci are mildly prominent for the patient age. Paranasal sinuses and mastoid air cells within the [id number] are clear. IMPRESSIONS: 1. No acute intracranial process radiographically apparent. Follow-up MRI can be performed as clini shannon indicated.
--- NOTE | 2022-07-06 14:22 | ED ---
General Adult HPI - General Chief complaint: Dizziness Stated complaint: dizzy Time Seen by Provider: 07/06/22 12:05 Source: patient Mode of arrival: ambulatory Limitations: no limitations - History of Present Illness Initial comments: 72-year-old male with past medical history of coronary artery disease, hypertension, hyperlipidemia who presents emergency department with vertiginous symptoms. No history of similar in the past. States that yesterday he was gardening at his house. He he bent down several times since up quickly. States that he began having a spinning sensation and also felt off balance. His symptoms are approximately 80% improved from yesterday however due to the small persistence of the symptoms he went into [facility] urgent care. They want the patient to come to the emergency department to be evaluated for stroke. He has no speech deficit. No lateralizing symptoms. No headache or visual changes. No history of stroke. Symptoms are worse with positional changes. He has not taken any medications for her symptoms. No recent car accidents. No head trauma. No chiropractic manipulations of the neck. No other alleviating, precipitating or modifying factors - Related Data Home Medications Medication Instructions Recorded Confirmed Levothyroxine Sodium [Synthroid] 75 mcg PO DAILY 04/09/16 02/27/21 Cyanocobalamin (Vitamin B-12) 1,000 mcg PO DAILY 11/13/17 02/27/21 [Vitamin B-12] Cholecalciferol (Vitamin D3) 125 mcg PO DAILY 08/04/19 02/27/21 [Vitamin D3 (5000 Iu)] Docusate Sodium [Dok] 100 mg PO BID 08/04/19 02/27/21 Multivit-Min/Folic/Vit K/Lycop 1 each PO DAILY 08/04/19 02/27/21 [Men's Multivitamin Tablet] Aspirin [Adult Low Dose Aspirin EC] 81 mg PO DAILY 02/26/21 02/27/21 Atorvastatin [Lipitor] 20 mg PO HS 02/26/21 02/27/21 Latanoprost/Pf [Latanoprost 0.005% 1 drop BOTH EYES HS 02/26/21 02/27/21 Eye Drop] Metoprolol Tartrate [Lopressor] 50 mg PO BID 02/26/21 02/27/21 Tamsulosin [Flomax] 0.4 mg PO HS 11/15/21 11/16/21 Previous Rx's Medication Instructions Recorded Acetaminophen Tab [Tylenol] 1,000 mg PO Q6HR PRN tab 08/12/19 metFORMIN HCL [Glucophage] 1,000 mg PO BID #60 tab 08/12/19 Meclizine [Antivert] 25 mg PO TID #20 tab 07/06/22 Allergies Allergy/AdvReac Type Severity Reaction Status Date / Time tetracycline Allergy Swelling Verified 07/06/22 11:47 Review of Systems ROS Statement: Those systems with pertinent positive or pertinent negative responses have been documented in the HPI. ROS Other: All systems not noted in ROS Statement are negative. Past Medical History Past Medical History: Coronary Artery Disease (CAD), Chest Pain / Angina, Diabetes Mellitus, Eye Disorder, GERD/Reflux, Hyperlipidemia, Pneumonia, Prostate Disorder, Thyroid Disorder Additional Past Medical History / Comment(s): kidney stones, glaucoma, tinnitus., varicose veins., dupuytrens contractures laila hands., States having S OB with exertion., History of Any Multi-Drug Resistant Organisms: None Reported Past Surgical History: Coronary Bypass/CABG, Heart Catheterization, Orthopedic Surgery Additional Past Surgical History / Comment(s): laila cataracts, PILONIDAL CYST ,GANGLION CYST LT WRIST, double CABG 08/09/19 Past Anesthesia/Blood Transfusion Reactions: Previous Problems w/ Anesthesia, Motion Sickness Additional Past Anesthesia/Blood Transfusion Reaction / Comment(s): had spinal headache after spinal anesthesia, "stays in my system longer" Past Psychological History: No Psychological Hx Reported Smoking Status: Never smoker Past Alcohol Use History: None Reported Past Drug Use History: None Reported - Past Family History Father Family Medical History: Cancer Mother Family Medical History: Cancer General Exam Limitations: no limitations General appearance: alert, in no apparent distress Head exam: Present: atraumatic, normocephalic, normal inspection Eye exam: Present: normal appearance, PERRL, EOMI, nystagmus (horizontal). Absent: scleral icterus, conjunctival injection, periorbital swelling ENT exam: Present: normal exam, mucous membranes moist Neck exam: Present: normal inspection. Absent: tenderness, meningismus, lymphad enopathy Respiratory exam: Present: normal lung sounds bilaterally. Absent: respiratory distress, wheezes, rales, rhonchi, stridor Cardiovascular Exam: Present: regular rate, normal rhythm, normal heart sounds. Absent: systolic murmur, diastolic murmur, rubs, gallop, clicks GI/Abdominal exam: Present: soft, normal bowel sounds. Absent: distended, tenderness, guarding, rebound, rigid Extremities exam: Present: normal inspection, full ROM, normal capillary refill. Absent: tenderness, pedal edema, joint swelling, calf tenderness Back exam: Present: normal inspection Neurological exam: Present: alert, oriented X3, CN II-XII intact Psychiatric exam: Present: normal affect, normal mood Skin exam: Present: warm, dry, intact, normal color. Absent: rash Course Vital Signs 07/06/22 07/06/22 07/06/22 11:42 11:58 13:29 Temperature 97.5 F L Pulse Rate 60 64 61 Pulse Rate [ Sitting Pulse Oximetery] Pulse Rate [ Standing Pulse Oximetery] Pulse Rate [ Supine Pulse Oximetery] Respiratory 20 16 16 Rate Blood Pressure 145/84 174/85 145/78 Blood Pressure [Left Arm Sitting] Blood Pressure [Left Arm Standing] Blood Pressure [Left Arm Supine] O2 Sat by Pulse 99 99 98 Oximetry 07/06/22 15:07 Temperature Pulse Rate Pulse Rate [ 63 Sitting Pulse Oximetery] Pulse Rate [ 65 Standing Pulse Oximetery] Pulse Rate [ 67 Supine Pulse Oximetery] Respiratory 16 Rate Blood Pressure Blood Pressure 132/75 [Left Arm Sitting] Blood Pressure 130/78 [Left Arm Standing] Blood Pressure 126/70 [Left Arm Supine] O2 Sat by Pulse 99 Oximetry EKG Findings - EKG Comments: EKG Findings:: EKG demonstrates sinus rhythm with a rate of 61. NJ interval 160. QRS 84. QTC 377. No acute ST segment elevations or depressions Medical Decision Making - Medical Decision Making Was pt. sent in by a medical professional or institution (, PA, TRAVEL ATTENDANTS, urgent care, hospital, or intermediate...) When possible be specific @ -No Did you speak to anyone other than the patient for history (EMS, parent, family, police, friend...)? What history was obtained from this source @ -No Did you review nursing and triage notes (agree or disagree)? Why? @ -I reviewed and agree with nursing and triage notes Were old charts reviewed (outside hosp., previous admission, EMS record, old EKG, old radiological studies, urgent care reports/EKG's, intermediate records)? Report findings @ -No Differential Diagnosis (chest pain, altered mental status, abdominal pain women, abdominal pain men, vaginal bleeding, weakness, fever, dyspnea, syncope, headache, dizziness, GI bleed, back pain, seizure, CVA, palpatations, mental health, musculoskeletal)? @ -BPPV, vbi, cva, uri, vestibulitis EKG interpreted by me (3pts min.). @ -As above X-rays interpreted by me (1pt min.). @ -Yes CT interpreted by me (1pt min.). @ -Yes U/S interpreted by me (1pt. min.). @ -None done What testing was considered but not performed or refused? (CT, X-rays, U/S, labs)? Why? @ -None What meds were considered but not given or refused? Why? @ -None Did you discuss the management of the patient with other professionals (professionals i.e. , PA, TRAVEL ATTENDANTS, lab, RT, psych nurse, social science manager, legal activity adjudicator, teacher, education officer, case technician)? Give summary @ -No Was smoking cessation discussed for >3mins.? @ -No Was critical care preformed (if so, how long)? @ -No Were there social determinants of health that impacted care today? How? (Homelessness, low income, unemployed, alcoholism, drug addiction, transportation, low edu. Level, literacy, decrease access to med. care, assisted, rehab)? @ -No Was there de-escalation of care discussed even if they declined (Discuss DNR or withdrawal of care, Hospice)? DNR status @ -No What co-morbidities impacted this encounter? (DM, HTN, Smoking, COPD, CAD, Cancer, CVA, ARF, Chemo, Hep., AIDS, mental health diagnosis, sleep apnea, morbid obesity)? @ -CAD, htn, hld Was patient admitted / discharged? Hospital course, mention meds given and route, prescriptions, significant lab abnormalities, going to OR and other pertinent info. @ -Upon arrival patient was placed into room 7. A thorough history and physic al exam is performed. Patient does have some horizontal nystagmus. He does report to marked improvement in his symptoms since they started yesterday. IV was started and laboratory studies are conducted. Patient was given a dose of meclizine. CT and CTA are performed. Reevaluation demonstrates continued improvement in his symptoms. CT and CTA of the head are negative. Results are discussed the patient. He does feel comfortable discharge home. Instructed that any return of his symptoms he needs to be reevaluated. An appointment with primary care next week. Further imaging the symptoms worsen. Patient was agreeable to this was discharged home ambulatory in stable condition Undiagnosed new problem with uncertain prognosis? @ -Yes Drug Therapy requiring intensive monitoring for toxicity (Heparin, Nitro, Insulin, Cardizem)? @ -No Were any procedures done? @ -No Diagnosis/symptom? @ -acute vertigo Acute, or Chronic, or Acute on Chronic? @ -acute Uncomplicated (without systemic symptoms) or Complicated (systemic symptoms)? @ -complicated Side effects of treatment? @ -No Exacerbation, Progression, or Severe Exacerbation? @ -No Poses a threat to life or bodily function? How? (Chest pain, USA, MT, pneumonia, PE, COPD, DKA, ARF, appy, cholecystitis, CVA, Diverticulitis, Homicidal, Suicidal, threat to staff... and all critical care pts) @ -no - Lab Data Result diagrams: 07/06/22 12:13 07/06/22 12:13 Lab Results 07/06/22 07/06/22 07/06/22 Range/Units 12:13 12:13 12:13 WBC 5.1 (3.8-10.6) k/uL RBC 4.66 (4.30-5.90) m/uL Hgb 14.4 (13.0-17.5) gm/dL Hct 41.4 (39.0-53.0) % MCV 89.0 (80.0-100.0) fL MCH 31.0 (25.0-35.0) pg MCHC 34.9 (31.0-37.0) g/dL RDW 12.9 (11.5-15.5) % Plt Count 176 (150-450) k/uL MPV 8.1 Neutrophils % 58 % Lymphocytes % 25 % Monocytes % 9 % Eosinophils % 4 % Basophils % 1 % Neutrophils # 2.9 (1.3-7.7) k/uL Lymphocytes # 1.3 (1.0-4.8) k/uL Monocytes # 0.5 (0-1.0) k/uL Eosinophils # 0.2 (0-0.7) k/uL Basophils # 0.0 (0-0.2) k/uL PT 10.5 (9.0-12.0) sec INR 1.0 (<1.2) APTT 23.0 (22.0-30.0) sec Sodium 140 (137-145) mmol/L Potassium 4.4 (3.5-5.1) mmol/L Chloride 103 (98-107) mmol/L Carbon Dioxide 24 (22-30) mmol/L Anion Gap 13 mmol/L BUN 18 (9-20) mg/dL Creatinine 0.79 (0.66-1.25) mg/dL Est GFR (CKD-EPI)AfAm >90 (>60 ml/min/1.73 sqM) Est GFR (CKD-EPI)NonAf >90 (>60 ml/min/1.73 sqM) Glucose 106 H (74-99) mg/dL Calcium 10.3 H (8.4-10.2) mg/dL Total Bilirubin 0.7 (0.2-1.3) mg/dL AST 27 (17-59) U/L ALT 24 (4-49) U/L Alkaline Phosphatase 41 (38-126) U/L Troponin I (0.000-0.034) ng/mL Total Protein 7.4 (6.3-8.2) g/dL Albumin 4.8 (3.5-5.0) g/dL 07/06/22 Range/Units 12:13 WBC (3.8-10.6) k/uL RBC (4.30-5.90) m/uL Hgb (13.0-17.5) gm/dL Hct (39.0-53.0) % MCV (80.0-100.0) fL MCH (25.0-35.0) pg MCHC (31.0-37.0) g/dL RDW (11.5-15.5) % Plt Count (150-450) k/uL MPV Neutrophils % % Lymphocytes % % Monocytes % % Eosinophils % % Basophils % % Neutrophils # (1.3-7.7) k/uL Lymphocytes # (1.0-4.8) k/uL Monocytes # (0-1.0) k/uL Eosinophils # (0-0.7) k/uL Basophils # (0-0.2) k/uL PT (9.0-12.0) sec INR (<1.2) APTT (22.0-30.0) sec Sodium (137-145) mmol/L Potassium (3.5-5.1) mmol/L Chloride (98-107) mmol/L Carbon Dioxide (22-30) mmol/L Anion Gap mmol/L BUN (9-20) mg/dL Creatinine (0.66-1.25) mg/dL Est GFR (CKD-EPI)AfAm (>60 ml/min/1.73 sqM) Est GFR (CKD-EPI)NonAf (>60 ml/min/1.73 sqM) Glucose (74-99) mg/dL Calcium (8.4-10.2) mg/dL Total Bilirubin (0.2-1.3) mg/dL AST (17-59) U/L ALT (4-49) U/L Alkaline Phosphatase (38-126) U/L Troponin I <0.012 (0.000-0.034) ng/mL Total Protein (6.3-8.2) g/dL Albumin (3.5-5.0) g/dL Disposition Clinical Impression: Vertigo Disposition: HOME SELF-CARE Condition: Stable Instructions (If sedation given, give patient instructions): Vertigo (ED) Additional Instructions: Please follow-up with your primary care doctor at your scheduled appointment. Complete the exercises. Take the meclizine as needed every 8 hours. Return for any new or worsening symptoms Prescriptions: Meclizine [Antivert] 25 mg PO TID #20 tab Is patient prescribed a controlled substance at d/c from ED?: No Referrals: Hi Riddle MD [Primary Care Provider] - 1-2 days Time of Disposition: 15:27
--- NOTE | 2022-07-06 14:34 | CT ---
EXAMINATION TYPE: CT angio head neck DATE OF EXAM: 07/06/2022 HISTORY: dizzy COMPARISON: None CT DLP: 411.9 mGycm. Automated Exposure Control for Dose Reduction was Utilized. TECHNIQUE: CTA scan of the neck is performed with IV Contrast, patient injected with 65 mL of Isovue 370, axial images are obtained, coronal and sagittal reformatted images are reviewed. Three-D recons tructed images are created on an independent workstation and reviewed. Source images are reviewed. FINDINGS: Carotid/Vascular Structures: There is a three-vessel arch. Mild plaquing is present at the left inter nal carotid artery origin. Right internal carotid artery origin appears normal. No significant flow-l imiting stenosis is evident. Vertebral arteries appear codominant. Internal carotid arteries are diaz nt to the skull base. Cervical of [place]: Vertebral basilar system appears normal. Posterior cerebral vasculature is unrema rkable. Internal carotid arteries bifurcate normally into A1 and M1 segments. A2 segments are normal. Middle cerebral artery branches appear unremarkable. Anterior communicating artery and posterior com municating arteries not clearly identified, normal variants. IMPRESSION: 1. No flow-limiting stenosis bilateral carotid bifurcations. 2. Normal [place] NASCET criteria was used in interpretation of this exam?
[2022-07-06 15:10] VITALS: BP 126/70; PULSE 67
== END 2022-07-06 15:44 | disposition home or self-care (01) ==
LOC: EC 11:41
DX: R42 Dizziness and giddiness (principal); I10 Essential (primary) hypertension; I25.10 Atherosclerotic heart disease of native coronary artery without angina pectoris; E78.5 Hyperlipidemia, unspecified; K21.9 Gastro-esophageal reflux disease without esophagitis; E07.9 Disorder of thyroid, unspecified; E11.9 Type 2 diabetes mellitus without complications; Z79.82 Long term (current) use of aspirin; Z79.84 Long term (current) use of oral hypoglycemic drugs; Z79.890 Hormone replacement therapy; Z79.899 Other long term (current) drug therapy; Z88.8 Allergy status to other drugs, medicaments and biological substances
CPT/HCPCS: 99285; 36415; 93005; 80053; 84484; 85025; 85610; 85730; 71046; 70496; 70450; 70498; Q9967

== ENCOUNTER → 2023-02-06 | Outpatient (CLI) | payer MEDICARE, BC ==
--- NOTE | 2023-02-07 10:05 | CT ---
EXAMINATION TYPE: CT chest wo con CT DLP: 374.7 mGycm, Automated exposure control for dose reduction was used. DATE OF EXAM: 02/06/2023 5:28 PM COMPARISON: 03/19/2022. CLINICAL INDICATION:Male, 72 years old with history of R91.1 lung nodule; PHH, f/u nodules TECHNIQUE: Multiple axial images were obtained through the chest. Sagittal and coronal reformats were created for review. Contrast used: mL of (None if empty) Oral contrast used: (None if empty) FINDINGS: LUNGS/ PLEURA: Right upper lung peripheral atelectasis versus pulmonary nodule change is stable measu ring up to 8 x 7 mm. No focal consolidation, pneumothorax or pleural effusion. No new suspicious pulm onary nodules. Left major fissure intrafissural lymph node series 4 image 33 and image 26. AIRWAY: Patent and unremarkable. HEART: Size within normal limits. MEDIASTINUM: No gross evidence of adenopathy. VASCULATURE: No aortic aneurysm. MUSCULOSKELETAL: No acute osseous abnormalities, sternotomy wire changes are present. Mild degenerati on changes throughout the spine. SOFT TISSUES/LYMPH NODES: Unremarkable. LOWER NECK: No significant findings. UPPER ABDOMEN: No significant findings. Few scattered colonic diverticula are present. IMPRESSION: Stable right upper lung pulmonary nodule which could represent atelectasis. No evidence for acute pro cess. No new or enlarging pulmonary nodules.
== END | disposition home or self-care (01) ==
LOC: RADCTMAIN 17:11
PROVIDERS: ATTEND Internal Medicine
DX: R91.1 Solitary pulmonary nodule (principal)
CPT/HCPCS: 71250

== ENCOUNTER → 2023-02-07 | Outpatient (CLI) | payer MEDICARE, BC | END | disposition home or self-care (01) | LOC: LABWHC1 12:26 | PROVIDERS: ATTEND Internal Medicine | DX: Z53.9 Procedure and treatment not carried out, unspecified reason (principal) ==

== ENCOUNTER → 2023-03-25 | Outpatient (CLI) | payer MEDICARE, BC ==
--- NOTE | 2023-03-25 13:06 | US ---
EXAMINATION TYPE: US kidneys/renal and bladder DATE OF EXAM: 03/25/2023 COMPARISON: NONE CLINICAL INDICATION: Male, 72 years old with history of N20.0 kidney stones; EXAM MEASUREMENTS: Right Kidney: 9.2 x 5.1 x 4.6 cm Left Kidney: 10.7 x 5.5 x 5.7 cm Right Kidney: wnl Left Kidney: wnl Bladder: wnl Bilateral Jets seen: right jet not seen, left jet seen IMPRESSION: 1. Unremarkable renal ultrasound
== END | disposition home or self-care (01) ==
LOC: RADUSWWP 12:13
PROVIDERS: ATTEND Internal Medicine
DX: N20.0 Calculus of kidney (principal)
CPT/HCPCS: 76770

== ENCOUNTER → 2024-02-17 | Outpatient (CLI) | payer MEDICARE, BC ==
--- NOTE | 2024-02-17 09:59 | CT ---
EXAMINATION TYPE: CT chest wo con DATE OF EXAM: 02/17/2024 9:45 AM COMPARISON: 02/06/2023 , 03/19/2022 CLINICAL INDICATION: Male, 73 years old with history of R91.1 SOLITARY PULMONARY NODULE, Solitary pul monary nodule pt unable to raise arms TECHNIQUE: Axial images were obtained at 5 mm thick sections. Reconstructed images are reviewed on [employer] computer in the coronal plane. Contrast used: mL of , (none if empty) Oral contrast used: (none if empty) CT DLP: 345.20 mGycm, Automated exposure control for dose reduction was used. FINDINGS: Portion of the thyroid visualized is normal. No suspicious lung nodules or focal infiltrates are present. 0.8 cm density within the peripheral lef t right apex appears stable from comparisons. No enlarged mediastinal or hilar adenopathy is evident. The ascending aorta diameter at the level o f the main pulmonary artery is 3.4 cm. The main pulmonary artery diameter at the bifurcation is 2.3 cm. Coronary artery calcifications present. Limited CT sections are obtained through the upper abdomen. Abdomen is essentially unremarkable. IMPRESSION: 1. Stable density peripheral right apex. 2. No acute changes. [facility], , 02/17/2024 9:56 AM
== END | disposition home or self-care (01) ==
LOC: RADCTMAIN 09:22
PROVIDERS: ATTEND Internal Medicine
DX: R91.1 Solitary pulmonary nodule (principal); J98.4 Other disorders of lung
CPT/HCPCS: 71250

== ENCOUNTER → 2024-08-25 | Outpatient (CLI) | payer MEDICARE, BC ==
[2024-08-25 13:48] VITALS: BP 154/78; PULSE 81; RESP 16; TEMP 97.6
--- NOTE | 2024-08-25 14:12 | P.SLEEP ---
History of Present Illness DATE: 08/25/2024 CONSULTATION/NEW PATIENT EVALUATION HISTORY OF PRESENT ILLNESS/SLEEP-WAKE EVALUATION: 74-year-old gentleman had b een evaluated in the sleep center for possible obstructive sleep apnea hypopnea syndrome. SLEEP SCHEDULE: Usually sleep schedule from midnight until 7:30 AM. FALLING ASLEEP: Usually no significant problems with falling asleep. DURING SLEEP: Patient snores, has witnessed episodes of stop breathing during the sleep by his , positive history of out of dream movements. Patient wakes up from sleep up to 4 times. Positive history of dry mouth, heartburn no history of hypnogogical hallucinations, sleep paralysis, or cataplexy. DURING THE DAY/WAKE STATE: In the morning patient wake up tired, has episodes of irritability, falling asleep during the day. [place] sleepiness scale is increased to 10. Patient may take 1-2 naps during the day. PAST MEDICAL HISTORY: Coronary artery disease, hypothyroidism, BPH, diabetes mellitus, glaucoma. PAST SURGICAL HISTORY: CABG in 2019. MEDICATIONS: Please see below. SOCIAL HISTORY: Please see below. FAMILY HISTORY: Please see below. REVIEW OF SYSTEMS: Snoring, awakenings from sleep, sleepiness during the day, out of dream movements. No fevers. No double vision. No recent chest pain. No shortness of breath. No abdominal pain. No bleeding episodes. No blood in urine. No seizure episodes. PHYSICAL EXAMINATION: GENERAL: A pleasant patient without any distress. VITAL SIGNS: Please see below, weight 159.8 pounds, BMI 22.3. HEENT: PERRLA, EOMI. Evaluation of oropharynx showed tongue protrudes midline, low position of soft palate Mallampati 23, short distance between soft palate and posterior pharyngeal wall. NECK: Supple. No JVD. Thyroid is not palpable. 14-1/3 inches in circumference. LUNGS: Clear to percussion and to auscultation. Good air exchange. No wheezing or rhonchi. HEART: S1, S2 regular. No murmurs, gallops or rubs. ABDOMEN: Soft and nontender. Bowel sounds are present. No organomegaly appreciated. EXTREMITIES: No clubbing or cyanosis. FITNESS COACH: Awake, alert, and oriented x3. Cranial nerves 2 to 7 intact. There is no fasciculation or atrophy noted. No focal deficits observed. ASSESSMENT: 1. Snoring, witnessed episodes of establishing during the sleep, small oropharyngeal airspace, sleepiness [place] Sleepiness Scale is 10. Obstructive sleep apnea hypopnea syndrome. 2. Out of the 3 movements, possibly REM sleep behavior disorder. 3. Coronary artery disease, status post CABG in 2019. 4. Diabetes mellitus. 5 hyperlipidemia. 6 . Hypothyroidism. 7. BPH. 8. Glaucoma. PLAN: 1. Polysomnography for evaluation of patient's breathing during sleep and for possible REM sleep behavioral disorder. 2. Following plan after reading sleep study. 3. Preferable position during sleep on the side. 4. No driving if patient feels any sleepiness. Patient is aware of civil and criminal liability for unsafe driving. 5. Sleep hygiene with regular sleep time for at least 7.5-8 hours. 6. Watching weight. 7. Precautions related to possibly REM sleep behavior disorder. Thank you very much for referring this patient for consultation. Sincerely, Dante Merchant MD, PhD, FAASM. Diplomat of [place] [employer], Sleep Medicine Board by [place] [employer] [place] [employer] Manager [facility] cc: Hi Riddle DO Past Medical History Past Medical History: Coronary Artery Disease (CAD), Chest Pain / Angina, Diabetes Mellitus, Eye Disorder, GERD/Reflux, Hyperlipidemia, Pneumonia, Prostate Disorder, Thyroid Disorder Additional Past Medical History / Comment(s): kidney stones, glaucoma, tinnitus., varicose veins., dupuytrens contractures laila hands., States having SOB with exertion., History of Any Multi-Drug Resistant Organisms: None Reported Past Surgical History: Coronary Bypass/CABG, Heart Catheterization, Orthopedic Surgery Additional Past Surgical History / Comment(s): laila cataracts, PILONIDAL CYST ,GANGLION CYST LT WRIST, double CABG 08/09/19 Past Anesthesia/Blood Transfusion Reactions: Previous Problems w/ Anesthesia, Motion Sickness Additional Past Anesthesia/Blood Transfusion Reaction / Comment(s): had spinal headache after spinal anesthesia, "stays in my system longer" Past Psychological History: No Psychological Hx Reported Smoking Status: Never smoker Past Alcohol Use History: Rare Past Drug Use History: None Reported - Past Family History Father Family Medical History: Cancer Additional Family Medical History / Comment(s): Pancreatic cancer, hearing loss Mother Family Medical History: Cancer, Diabetes Mellitus Additional Family Medical History / Comment(s): Bresst cancer Medications and Allergies Home Medications Medication Instructions Recorded Confirmed Type Levothyroxine Sodium [Synthroid] 75 mcg PO DAILY 04/09/16 08/25/24 History Cyanocobalamin (Vitamin B-12) 1,000 mcg PO DAILY 11/13/17 02/27/21 History [Vitamin B-12] Cholecalciferol (Vitamin D3) 125 mcg PO DAILY 08/04/19 02/27/21 History [Vitamin D3 (5000 Iu)] Docusate Sodium [Dok] 100 mg PO BID 08/04/19 02/27/21 History Multivit-Min/Folic/Vit K/Lycop 1 each PO DAILY 08/04/19 02/27/21 History [Men's Multivitamin Tablet] Acetaminophen Tab [Tylenol] 1,000 mg PO Q6HR PRN tab 08/12/19 02/26/21 Rx metFORMIN HCL [Glucophage] 1,000 mg PO BID #60 tab 08/12/19 08/25/24 Rx Aspirin [Adult Low Dose Aspirin EC] 81 mg PO DAILY 02/26/21 02/27/21 History Atorvastatin [Lipitor] 20 mg PO HS 02/26/21 08/25/24 History Latanoprost/Pf [Latanoprost 0.005% 1 drop BOTH EYES HS 02/26/21 08/25/24 History Eye Drop] Metoprolol Tartrate [Lopressor] 50 mg PO BID 02/26/21 02/27/21 History Tamsulosin [Flomax] 0.4 mg PO HS 02/26/21 08/25/24 History Meclizine [Antivert] 25 mg PO TID #20 tab 07/06/22 Rx Allergies Allergy/AdvReac Type Severity Reaction Status Date / Time tetracycline Allergy Swelling Verified 07/06/22 11:47 Physical Exam Vitals: Vital Signs Temp Pulse Resp BP Pulse Ox 08/25/24 13:43 97.6 F 81 16 154/78 97 Intake and Output 08/24/24 08/25/24 08/25/24 22:59 06:59 14:59 Other: Weight 72.348 kg Sleep Note - Sleep Data ESS Total: 10 - Sleep Note Sleep Note: Temperature: 97.6 F Pulse Rate: 81 Respiratory Rate: 16 Blood Pressure: 154/78 SpO2: 97 Height: 5 ft 10.7 in Weight: 72.348 kg BMI: Neck Circumference: 14.3
== END ==
LOC: 3 N SLEEP 13:10
PROVIDERS: ATTEND Internal Medicine
DX: G47.33 Obstructive sleep apnea (adult) (pediatric) (principal); I25.10 Atherosclerotic heart disease of native coronary artery without angina pectoris; E11.9 Type 2 diabetes mellitus without complications; E78.5 Hyperlipidemia, unspecified; E03.9 Hypothyroidism, unspecified; N40.0 Benign prostatic hyperplasia without lower urinary tract symptoms; H40.9 Unspecified glaucoma; Z95.1 Presence of aortocoronary bypass graft; Z88.8 Allergy status to other drugs, medicaments and biological substances
CPT/HCPCS: 99211

== ENCOUNTER → 2024-09-23 | Outpatient (CLI) | payer MEDICARE, BC ==
--- NOTE | 2024-09-23 09:33 | US ---
EXAMINATION TYPE: US arterial LE single level DATE OF EXAM: 09/23/2024 9:08 AM COMPARISONS: US 2019 CLINICAL INDICATION: Male, 74 years old with history of I73.9 PERIPHERAL VASCULAR DISEASE, UNSPECIFIE D; PVD per order TECHNIQUE: Systolic pressures were taken of the upper and lower extremity arteries with ankle-brachia l indices and toe brachial indices calculated bilaterally. History of: Smoker: No Hypertension: No Diabetic: Yes Hyperlipidemia: Yes TIA/CVA: No Previous Vascular Surgery: Hx coronary bypass July 2019 [place]: No Vascular Ulcers: No Claudication: No Gangrene: No FINDINGS: Doppler Waveforms: Right: Biphasic Left: Biphasic Brachial Artery systolic pressure: Right: 159 Left: 149 Posterior Tibial artery systolic pressure: Right: CNO Left: CNO Dorsalis Pedis artery systolic pressure: Right: CNO Left: CNO Toe artery systolic pressure: Right: 110 Left: 104 Ankle-Brachial Indices: Right: CNO Left: CNO Toe Brachial Indices: Right: 0.69 Left: 0.65 (Normal > 0.6; Mild 0.35 - 0.59, Moderate 0.12 - 0.34, Severe <0.12) IMPRESSION: TBI: Right: Normal, Recommendation: None Left: Normal, Recommendation: None [facility], , 09/23/2024 9:31 AM
== END | disposition home or self-care (01) ==
LOC: RADUSWWP 08:39
PROVIDERS: ATTEND Internal Medicine
DX: I73.9 Peripheral vascular disease, unspecified (principal)
CPT/HCPCS: 93922

== ENCOUNTER 2024-09-25 19:45 | Outpatient (CLI) | payer MEDICARE, BC ==
--- NOTE | 2024-10-06 14:03 | P.PCN ---
Description of Procedure: POLYSOMNOGRAPHY REPORT PROCEDURE(S)/DATE(S): Polysomnography 09/25/2024 CLINICAL: Patient has been seen in the sleep center for evaluation of obstructive sleep apnea-hypopnea syndrome. Please see my consultation. Sleep study has been done for evaluation of patient breathing during the sleep. PROCEDURE: The standard montage for clinical polysomnography included the electroencephalogram, the electrooculogram, the mentalis surface electromyography and Lead II cardiography. The respiratory battery consisted of measurements of nasal/buccal air flow, pressure transducer measurements from nose, thoracic and/or abdominal effort and intercostal surface electromyography. Video monitoring has been done to check for any parasomnia events. Nocturnal oxyhemoglobin saturations were obtained by finger oximetry. Step-hernandez titration with positive airway pressure was utilized to control the respiratory events, if necessary. RESULTS: During the diagnostic sleep study sleep efficiency was very slightly decreased to 86.8%. Latency to sleep onset was normal 19.5 min. Sleep architecture showed stage NI was short 1.7%, Delta sleep was absent 0%, REM sleep was slightly decreased to 16.7%. Respiratory channel showed 10 obstructive apneas, 0 mixed apneas, 0 central apneas, 30 hypopneas with lowest oxygen level 87%. Total apnea hypopnea index was 7.0. Heart rate was in the range between 57 and 68, average 62. EMG showed 12.3 periodic limb movements per hour with 0 micro-arousals per hour. IMPRESSIONS: 1. Mild obstructive sleep apnea hypopnea syndrome. 2. Very mild periodic limb movements have been documented in normal range by today criterias. 3. Coronary artery disease, status post CABG Please see other impressions from consultation PLAN: 1. The patient will be started on AutoPap treatment for correction of respiratory abnormalities during sleep. 2. I will see patient follow-up visit to evaluate clinical response on treatment, compliance with treatment and [place] adjustments related to mask fitting pressure and humidification. 3. Sleep hygiene with regular time in bed for at least 7-1/2 hours. 4. No driving if feeling sleepiness. 5. Please check iron profile including ferritin level. Low level of iron may increase the risk for periodic limb movements. Thank you very much for allowing me to participate in the management of your patient. Sincerely, Dante Merchant MD, PhD, FAASM. Diplomat of [place] [employer], Sleep Medicine Board by [place] [employer] Maintenance [employer] [facility] [place] cc: Hi Riddle DO
== END 2024-09-26 05:30 | disposition home or self-care (01) ==
LOC: 3 N SLEEP 19:45
PROVIDERS: ATTEND Internal Medicine
DX: G47.33 Obstructive sleep apnea (adult) (pediatric) (principal); G47.61 Periodic limb movement disorder; I25.10 Atherosclerotic heart disease of native coronary artery without angina pectoris; Z95.1 Presence of aortocoronary bypass graft; Z88.1 Allergy status to other antibiotic agents
CPT/HCPCS: 95810